=== PATIENT | female | born 1950 | race Caucasian/White ===

== ENCOUNTER → 2021-11-19 07:40 | Outpatient (REF) | payer MEDICARE, MEDICAID, SELFPAY ==
--- NOTE | ~2021-11-19 | NM_ITS ---
EXAMINATION: NUCLEAR MEDICINE HEPATOBILIARY SCAN CLINICAL INFORMATION: Abdominal pain and discomfort, nausea and vomiting. COMPARISON: None TECHNIQUE: Hepatobiliary imaging was performed using 5 mCi of technetium 99m labeled mebrofenin dynamic imaging every minute for 60 minutes in the AP projection was performed. One 8 ounce bottle of Ensure was given 1 hour. Additional dynamic imaging every minute for one hour was performed. FINDINGS: There is symmetric radiotracer uptake seen in the liver. Activity is seen in the common bile duct by 10 minutes. Activity is seen in the small bowel by 15 minutes. Activity is seen in the gallbladder by 20 minutes. Gallbladder ejection fraction is normal. Ejection fraction at 30 minutes is 79%, at 40 minutes 82% and 60 minutes 98%. NM/NM hepatobiliary wo pharm IMPRESSION: Normal hepatobiliary scan. Normal gallbladder ejection fraction.
== END ==
LOC: HO.NUCMED 07:40
PROVIDERS: Visit Provider Hospitalist
DX: R52 Pain, unspecified (principal)
CPT/HCPCS: 78226; A9537

== ENCOUNTER 2021-12-20 09:56 | Outpatient (REF) | payer MEDICAID, SELFPAY ==
--- NOTE | ~2021-12-20 | XR_ITS ---
EXAMINATION: XR CHEST CLINICAL INFORMATION: Abnormal weight loss COMPARISON: Previous chest x-ray May 2017 TECHNIQUE: 2 views of the chest were obtained. FINDINGS: The cardiac and mediastinal contours are stable. The thoracic aorta is calcified. The lung volumes are low. The lungs are clear. There is no pleural effusion or pneumothorax. There are degenerative changes of the thoracic spine and scoliosis. XR/XR chest 2V IMPRESSION: Atherosclerotic disease. No evidence for acute disease in the chest.
[2021-12-20 10:16] LABS: MANUAL DIFF FLAG NO
[2021-12-20 10:51] LABS: Basophils Absolute Auto 0.1 X10*3/uL (0.0-0.2); Basophils Percent Auto 0.4 % (0-2); Eosinophils Absolute Auto 0.2 X10*3/uL (0.0-0.4); Eosinophils Percent Auto 1.6 % (0-4); Hematocrit 50.5 % (37.0-47.0); Hemoglobin 16.8 g/dl (12.0-16.0); Imm Gran Abs Auto 0.05 X10*3/uL (0.00-0.03); Imm Gran Pct Auto 0.4 % (0.0-0.4); Lymphocytes Absolute Auto 3.3 X10*3/uL (1.2-4.9); Lymphocytes Percent Auto 25.8 % (20-40); Mean Corpuscular HGB Conc 33.3 g/dl (31.0-35.0); Mean Corpuscular Hemoglobin 28.9 pg (27.0-33.0); Mean Corpuscular Volume 86.9 fL (80.0-98.0); Mean Platelet Volume 10.2 fL (9.4-12.3); Monocytes Absolute Auto 1.2 X10*3/uL (0.1-1.2); Neutrophils Absolute Auto 8.1 x10*3/uL (2.0-8.3); Neutrophils Percent Auto 62.8 % (45-73); Platelet Count 420 X10*3/uL (160-400); Red Blood Count 5.81 X10*6/uL (4.20-5.50); White Blood Count 12.8 X10*3/uL (4.8-10.8)
[2021-12-20 11:19] LABS: Alanine Aminotransferase 24 U/L (0-31); Albumin Level 3.2 g/dL (3.5-5.0); Alkaline Phosphatase 160 U/L (39-117); Anion Gap 17 (12-20); Aspartate Amino Transferase 25 U/L (5-31); Bilirubin Total 0.4 mg/dL (0.0-1.0); Blood Urea Nitrogen 14 mg/dL (9-16); Calcium 9.4 mg/dL (8.4-10.2); Carbon Dioxide 28 mmol/L (22-29); Chloride 103 mmol/L (96-108); Estimated Glomerular Filt Rate > 60; Glucose Random 104 mg/dL (60-115); Potassium 3.9 mmol/L (3.3-5.1); Sodium 144 mmol/L (135-145); Total Protein 5.7 g/dL (6.5-8.0)
[2021-12-20 11:25] LABS: Thyroid Stimulating Hormone 1.97 uIU/mL (0.32-4.0)
== END 2021-12-20 09:57 | disposition home or self-care (01) ==
LOC: HO.LAB 09:56
PROVIDERS: PCP Hospitalist; Visit Provider Physician Assistant
DX: R63.4 Abnormal weight loss (principal); R11.2 Nausea with vomiting, unspecified; K58.9 Irritable bowel syndrome, unspecified; K21.9 Gastro-esophageal reflux disease without esophagitis; F17.200 Nicotine dependence, unspecified, uncomplicated
CPT/HCPCS: 36415; 71046; 80053; 84443; 85025; 99202

== ENCOUNTER 2022-01-11 08:57 | Outpatient (REF) | payer MEDICAID, SELFPAY ==
--- NOTE | ~2022-01-11 | FL_ITS ---
EXAMINATION: FL BARIUM SWALLOW CLINICAL INFORMATION: Nausea and vomiting. Heartburn. COMPARISON: None TECHNIQUE: Barium swallow examination is performed using fluoroscopic evaluation in addition to multiple fluoroscopic spot views. The patient is imaged both upright and prone and using both thick and thin sulfate along with effervescent granules. Barium tablet was also administered. Fluoroscopy time: 1.4 minutes DAP: 8.4 Gycm2 Images: 55 FINDINGS: The swallowing mechanism is normal. No aspiration or penetration is seen. There is abnormal esophageal motility. The esophagus is dilated. There are tertiary contractions. There is narrowing at the GE junction and stasis of the barium tablet at the GE junction. With the patient in the prone/MA position there is minimal passage of contrast into the stomach. No appreciable reflux. No esophageal hernia. FL/FL barium swallow IMPRESSION: Dilated esophagus with abnormal esophageal motility and tertiary contractions. There is stasis of the barium tablet at the GE junction, question related to achalasia versus a stricture. No reflux was observed however there is limited passage of contrast from the esophagus into the stomach.
== END 2022-01-11 08:58 | disposition home or self-care (01) ==
LOC: HO.XRAY 08:57
PROVIDERS: PCP Hospitalist; Visit Provider Physician Assistant
DX: K21.9 Gastro-esophageal reflux disease without esophagitis (principal); R11.2 Nausea with vomiting, unspecified; R63.4 Abnormal weight loss
CPT/HCPCS: 74220

== ENCOUNTER 2022-02-24 15:33 | Emergency (ER) | payer MEDICARE, MEDICAID, SELFPAY ==
--- NOTE | ~2022-02-24 | CT_ITS ---
EXAMINATION: CT BRAIN AND CT LUMBAR CERVICAL SPINE WITHOUT CONTRAST. CLINICAL INFORMATION: Fall. COMPARISON: TECHNIQUE: 5 mm thin axial and reformatted 2 mm thin sagittal and coronal images of brain were obtained. Subsequently axial 3 mm thin and reformatted 2 mm thin sagittal and coronal images of cervical spine were obtained. DLP [id number]. This CT examination was performed using dose optimization technique as appropriate, variously including the following: Automated exposure control Adjustment of MA and/or KV according to patient size(this includes techniques or standardized protocols for targeted exams where dose is matched to indication/reason for exam; extremities or head. Use of iterative reconstruction techniques. FINDINGS: Brain: There is no acute intra-axial, extra-axial bleed, masses or midline shift. There is no acute infarction in evolution. There is no edema the lateral ventricles are symmetrical in size and configuration with mild enlargement. The majano to white matter incision is maintained normal. Bone windows reveal no calvarial abnormality. There is no scalp soft tissue normality. Bilateral paranasal sinuses and mastoid air cells are well-aerated. Cervical spine: There is mild straightening of cervical lordosis. The vertebral heights and alignment is normal. Mild loss of C5-C6 and C6-C7 disc heights with mild ventral and posterior spondylosis noted. Rest the disc heights are normal. The craniovertebral junction and the C1-C2 alignment is normal. There is moderate narrowing of right C3-C4 C4-C5, C5-C6 neural foramina from uncovertebral hypertrophic changes. No aggressive lytic or sclerotic process. There is no acute fracture or dislocation. There is mild spondylosis C1-C2 disc level. The prevertebral soft tissues are normal. There is posterior spinal extra-axial calcified lesion at the C7-T1 disc level likely calcified meningioma. The prevertebral and the paravertebral soft tissues are normal. The lung apices are clear. CT/CT cervical spine wo IV con IMPRESSION: No acute intra-abdominal cranial process seen. No acute fracture, dislocation subluxation cervical spine. There are degenerative disc changes as described above with moderate narrowing of right neural foramina. There is extra-axial spinal canal lesion in the C7-T1 disc level most likely calcified meningioma.
--- NOTE | ~2022-02-24 | XR_ITS ---
EXAMINATION: XR elbow LT 2V, XR shoulder LT min 2V, XR wrist LT 2V CLINICAL INFORMATION: Reason for Exam fall, pain COMPARISON: None. TECHNIQUE: 3 views left shoulder; 3 views left elbow; 4 views left wrist including scaphoid view FINDINGS: Left shoulder: No acute fracture or dislocation. Glenohumeral joint space is maintained. Acromiohumeral interval is preserved. No periarticular soft tissue calcification. AC joint is congruent and intact. Minimal osteophyte formation. Visualized left lung is grossly clear. Aortic vascular calcifications noted. Left elbow: No acute fracture, dislocation, or elbow joint effusion. Joint spaces are maintained. No significant osteophyte formation. No osseous lesion. Left wrist: No acute fracture or dislocation. Pronator fat pad is intact. Scapholunate interval is maintained. Joint spaces at the wrist are preserved. Mild to moderate joint space narrowing with subchondral sclerosis and osteophytes at the first CMC joint consistent with osteoarthritis. XR/XR elbow LT 2V IMPRESSION: 1. No acute fracture or dislocation identified at the left shoulder, left elbow, or left wrist. 2. No elbow joint effusion. 3. 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
--- NOTE | ~2022-02-24 | XR_ITS ---
EXAMINATION: XR elbow LT 2V, XR shoulder LT min 2V, XR wrist LT 2V CLINICAL INFORMATION: Reason for Exam fall, pain COMPARISON: None. TECHNIQUE: 3 views left shoulder; 3 views left elbow; 4 views left wrist including scaphoid view FINDINGS: Left shoulder: No acute fracture or dislocation. Glenohumeral joint space is maintained. Acromiohumeral interval is preserved. No periarticular soft tissue calcification. AC joint is congruent and intact. Minimal osteophyte formation. Visualized left lung is grossly clear. Aortic vascular calcifications noted. Left elbow: No acute fracture, dislocation, or elbow joint effusion. Joint spaces are maintained. No significant osteophyte formation. No osseous lesion. Left wrist: No acute fracture or dislocation. Pronator fat pad is intact. Scapholunate interval is maintained. Joint spaces at the wrist are preserved. Mild to moderate joint space narrowing with subchondral sclerosis and osteophytes at the first CMC joint consistent with osteoarthritis. XR/XR wrist LT 2V IMPRESSION: 1. No acute fracture or dislocation identified at the left shoulder, left elbow, or left wrist. 2. No elbow joint effusion. 3. 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
--- NOTE | ~2022-02-24 | XR_ITS ---
EXAMINATION: XR elbow LT 2V, XR shoulder LT min 2V, XR wrist LT 2V CLINICAL INFORMATION: Reason for Exam fall, pain COMPARISON: None. TECHNIQUE: 3 views left shoulder; 3 views left elbow; 4 views left wrist including scaphoid view FINDINGS: Left shoulder: No acute fracture or dislocation. Glenohumeral joint space is maintained. Acromiohumeral interval is preserved. No periarticular soft tissue calcification. AC joint is congruent and intact. Minimal osteophyte formation. Visualized left lung is grossly clear. Aortic vascular calcifications noted. Left elbow: No acute fracture, dislocation, or elbow joint effusion. Joint spaces are maintained. No significant osteophyte formation. No osseous lesion. Left wrist: No acute fracture or dislocation. Pronator fat pad is intact. Scapholunate interval is maintained. Joint spaces at the wrist are preserved. Mild to moderate joint space narrowing with subchondral sclerosis and osteophytes at the first CMC joint consistent with osteoarthritis. XR/XR shoulder LT min 2V IMPRESSION: 1. No acute fracture or dislocation identified at the left shoulder, left elbow, or left wrist. 2. No elbow joint effusion. 3. 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
[2022-02-24 15:41] VITALS: BP 110/70; BP 151/69; PULSE 70; PULSE 77; RESP 18; TEMP 36.7; O2SAT 100; O2SAT 97; BMI 23.6
--- NOTE | 2022-02-24 17:11 | ED.FALL ---
HPI - Fall General Chief Complaint: Fall Stated Complaint: fall Time Seen by Provider: 02/24/22 15:53 Source: patient and EMS Mode of arrival: EMS Limitations: no limitations History of Present Illness HPI Narrative: Patient comes to the emergency room complaining of a fall. Patient states that she tripped over the wheels of a wheelchair. And on the left side of her body. Patient needed assistance to walk. Patient states she has no hip pain or leg pain. Patient hit her head on the left side, has a laceration to the left eyebrow, no loss of consciousness. Not on blood thinners. Patient denies having any headache or neck pain. Patient states that her shoulder elbow and wrist on the left side hurt minimally. Patient requesting Vicodin, since she is due for her home does Related Data Home Medications Medication Instructions Recorded Confirmed acetaminophen 650 mg 650 mg PO Q8H 12/20/21 12/20/21 tablet,extended release atorvastatin 40 mg tablet 40 mg PO DAILY 12/20/21 12/20/21 bisacodyl 10 mg rectal suppository 10 mg PA DAILY PRN 12/20/21 12/20/21 cyclobenzaprine 5 mg tablet 5 mg PO TID PRN 12/20/21 12/20/21 famotidine 40 mg tablet 40 mg PO DAILY 12/20/21 12/20/21 gabapentin 600 mg tablet 600 mg PO TID 12/20/21 12/20/21 hydrocodone 10 mg-acetaminophen tab PO 12/20/21 12/20/21 325 mg tablet loperamide 2 mg capsule 2 mg PO Q6H PRN 12/20/21 12/20/21 loratadine 10 mg tablet 10 mg PO DAILY 12/20/21 12/20/21 magnesium oxide 400 mg PO DAILY 12/20/21 12/20/21 morphine 15 mg tablet,extended 15 mg PO TID 12/20/21 12/20/21 release nortriptyline 25 mg capsule mg PO 12/20/21 12/20/21 Allergies Allergy/AdvReac Type Severity Reaction Status Date / Time tramadol [Ultram] Allergy Intermediate Unknown Verified 02/24/22 15:49 Review of Systems Review of Systems: Constitutional : No Weight loss, No Fever, No Chills, No Night Sweats, No Fatigue, No Malaise ENT/Mouth : No Hearing loss, No Ear Pain, No Nasal Congestion, No Sinus Pain, No Hoarseness, No sore throat, No Rhinorrhea, No Swallowing Difficulty Eyes: No Eye Pain, No Swelling, No Redness, No Foreign Body, No Discharge, No Vision Changes Cardiovascular : No Chest Pain, No SOB, No Dyspnea on Exertion, No Orthopnea, No Edema, No Palpitations Respiratory : No Cough, No Sputum, No Wheezing, No Smoke Exposure, No Dyspnea Gastrointestinal : No Nausea, No Vomiting, No Diarrhea, No Constipation, No abdominal Pain, No Hematochezia, No Melena Genitourinary : no irregular bleeding, No Dysuria, No Urinary Frequency, No Hematuria, No Urinary Incontinence, No Urgency, No Flank Pain, No Urinary Flow Changes, No Hesitancy Musculoskeletal : Pain to the left shoulder/elbow/wrist, No Myalgias, No Joint Swelling Skin : Laceration to left eyebrow Neuro : No Weakness, No Numbness, No Paresthesias, No Loss of Consciousness, No Dizziness, No Headache Psych : No Anxiety/Panic, No Depression, No SI/HI/AH/VH, No Social Issues, Heme/Lymph: No Bruising, No Bleeding,No Lymphadenopathy Endocrine : No Polyuria, No Polydipsia, No Temperature Intolerance PMFSH Past Medical History Medical History Acid reflux Fibromyalgia Melanoma Myofascial pain Surgical History History of knee replacement Social History Social History (Updated 12/20/21 @ 09:27 by Melanie Strong PA-C) Household Members Other:: [facility]- x 8 years Alcohol intake: former Patient Tobacco Use Status: Current everyday Tobacco user Years Smoked: 50 years Smoked in Last 30 Days: Yes Use of substances other than those prescribed or required for medical reasons: No Advance Directives: No Advance Directives Information Provided: Yes Current occupational status: disabled Physical Exam Vital Signs: Vital Signs: Last Vital Signs Temp 98.1 F 02/24/22 15:41 Pulse 77 02/24/22 15:41 Resp 18 02/24/22 15:41 BP 151/69 H 02/24/22 15:41 Pulse Ox 97 02/24/22 15:41 O2 Del Method 02/24/22 15:41 BMI result Body Mass Index 23.6 Const: Other: Appearance: Alert. Oriented X3. No acute distress. Eyes: Pupils equal, round and reactive to light. ENT: Pharynx normal. Neck: Normal inspection. Neck supple. No lymph nodes noted. No crepitus CVS: Normal heart rate and rhythm. Pulses normal. Normal S1 and S2 Respiratory: No respiratory distress. Breath sounds normal. No Wheezing. No rales Abdomen: Soft and nontender. No rigidity. No distention. Skin: Skin warm and dry. There is a 1.5 cm laceration to the left eyebrow laterally Extremities: No lower extremity edema. No Lacerations. No Rash Neuro: Oriented X 3. No motor deficit. No sensory deficit. Moving all extremities. No slurred speech. CN 2 through 12 grossly intact Psych: calm, cooperative, normal affect Course Course Course Narrative: Patient's head CT and x-rays pending. Patient will need stitches. Patient agreeable. Head and cervical spine CT scan, nothing acute. Also, no fractures or dislocations visualized on the left elbow, shoulder, wrist Patient received 4 stitches in the left eyebrow Medications Administered Discontinued Medications Generic Name Dose Route Start Last Admin Trade Name Freq PRN Reason Stop Dose Admin Hydrocodone Bitart/Acetaminophen 1 tab 02/24/22 17:06 02/24/22 18:21 Hydrocodone Bit/Acetam 5/325 Tablet PO 02/24/22 17:07 1 tab ONCE ONE Administration Lidocaine HCl 5 ml 02/24/22 17:11 02/24/22 18:22 Lidocaine Hcl 2 % Mpf 5 Ml Vial INFILTRATI 02/24/22 17:12 5 ml ONCE ONE Administration Procedures Laceration Laceration 1: Site: face Side (If applicable): left Size (cm): 1.5 Description: linear Depth: simple, single layer Local Anesthetic: lidocaine 2% Amount of anesthesia used (mL): 3 Skin layer closed with: nylon Size (cm): 5-0 Number of sutures: 4 Technique: simple, interrupted Medical Decision Making Radiology Impression Discussion of test interpretation with radiology: I have reviewed the radiologist's reading. Radiologist Impression: FINDINGS: Left shoulder: No acute fracture or dislocation. Glenohumeral joint space is maintained. Acromiohumeral interval is preserved. No periarticular soft tissue calcification. AC joint is congruent and intact. Minimal osteophyte formation. Visualized left lung is grossly clear. Aortic vascular calcifications noted. Left elbow: No acute fracture, dislocation, or elbow joint effusion. Joint spaces are maintained. No significant osteophyte formation. No osseous lesion. Left wrist: No acute fracture or dislocation. Pronator fat pad is intact. Scapholunate interval is maintained. Joint spaces at the wrist are preserved. Mild to moderate joint space narrowing with subchondral sclerosis and osteophytes at the first CMC joint consistent with osteoarthritis. XR/XR shoulder LT min 2V IMPRESSION: 1.? No acute fracture or dislocation identified at the left shoulder, left elbow, or left wrist. 2.? No elbow joint effusion. 3.? 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 FINDINGS: Brain: There is no acute intra-axial, extra-axial bleed, masses or midline shift. There is no acute infarction in evolution. There is no edema the lateral ventricles are symmetrical in size and configuration with mild enlargement. The majano to white matter incision is maintained normal. Bone windows reveal no calvarial abnormality. There is no scalp soft tissue normality. Bilateral paranasal sinuses and mastoid air cells are well-aerated. Cervical spine: There is mild straightening of cervical lordosis. The vertebral heights and alignment is normal. Mild loss of C5-C6 and C6-C7 disc heights with mild ventral and posterior spondylosis noted. Rest the disc heights are normal. The craniovertebral junction and the C1-C2 alignment is normal. There is moderate narrowing of right C3-C4 C4-C5, C5-C6 neural foramina from uncovertebral hypertrophic changes. No aggressive lytic or sclerotic process. There is no acute fracture or dislocation. There is mild spondylosis C1-C2 disc level. The prevertebral soft tissues are normal. There is posterior spinal extra-axial calcified lesion at the C7-T1 disc level likely calcified meningioma. The prevertebral and the paravertebral soft tissues are normal. The lung apices are clear. CT/CT cervical spine wo IV con IMPRESSION: No acute intra-abdominal cranial process seen. ? No acute fracture, dislocation subluxation cervical spine. There are degenerative disc changes as described above with moderate narrowing of right neural foramina. ? There is extra-axial spinal canal lesion in the C7-T1 disc level most likely calcified meningioma.? Discharge Plan Discharge Clinical Impression: Eyebrow laceration, Contusion of arm, left Patient Disposition: Home, Self-Care Instructions: Laceration (ED) Additional Instructions: Please follow-up with your primary care physician tomorrow. If you have any worsening or new symptoms, please return to the emergency room or call 911 Prescriptions: No Action nortriptyline 25 mg capsule PO hydrocodone-acetaminophen 10-325 mg tablet PO morphine 15 mg tablet extended release 15 mg PO TID gabapentin 600 mg tablet 600 mg PO TID atorvastatin 40 mg tablet 40 mg PO DAILY cyclobenzaprine 5 mg tablet 5 mg PO TID PRN famotidine 40 mg tablet 40 mg PO DAILY loperamide 2 mg capsule 2 mg PO Q6H PRN loratadine 10 mg tablet 10 mg PO DAILY magnesium oxide 400 mg magnesium capsule 400 mg PO DAILY bisacodyl 10 mg suppository 10 mg PA DAILY PRN acetaminophen 650 mg tablet extended release 650 mg PO Q8H
[2022-02-24] MEDS: HYDROcodone Bit/Acetam 5/325 TABLET 1 TAB PO (18:21)
[2022-02-24] MEDS: Lidocaine HCl 2 % MPF 5 ML VIAL INFILTRATI (18:22)
--- NOTE | 2022-02-24 19:48 | MHC.EDTECH ---
Lissa called at 192 for a bls transfer back to [facility] ,[place] within the hour.Rn aware
== END 2022-02-24 23:05 | disposition home or self-care (01) ==
PROVIDERS: Emergency Provider Emergency Medicine; PCP Hospitalist
DX: S01.112A Laceration without foreign body of left eyelid and periocular area, initial encounter (principal); S40.022A Contusion of left upper arm, initial encounter; W01.198A Fall on same level from slipping, tripping and stumbling with subsequent striking against other object, initial encounter; Y93.9 Activity, unspecified; Y92.129 Unspecified place in nursing home as the place of occurrence of the external cause; Y99.9 Unspecified external cause status; F17.200 Nicotine dependence, unspecified, uncomplicated
CPT/HCPCS: 12011; 70450; 72125; 73030; 73070; 73100; 99284

== ENCOUNTER 2022-06-21 08:55 | Day surgery (SDC) | payer MEDICARE, MEDICAID, SELFPAY ==
[2022-06-20 09:55] VITALS: BMI 25.9
--- NOTE | 2022-06-20 12:08 | HO.ANESPROP2 ---
Documented by User: Kimberly Hines NP 06/20/22 13:18 HPI - Anesthesia Eval Consult details Narrative: 72yo F for Upper Endoscopy with possible Balloon Dilitation, possible botox [address] [facility] resident [facility] Active Problems Active Problems: All Active Problems (Updated 06/17/22 @ 11:02 by Brandee Isaacs RN) Osteoarthritis (Acute) Weight loss (Acute) Smoker (Acute) Nausea & vomiting (Acute) Myofascial pain (Acute) Acid reflux (Acute) Fibromyalgia (Acute) Past Medical History Medical History Acid reflux Anxiety disorder CHF (congestive heart failure) Depression Epilepsy, unspecified, not intractable, without status epilepticus Fibromyalgia GERD (gastroesophageal reflux disease) HTN (hypertension) Hyperlipidemia Low back pain Melanoma Myalgia Myofascial pain Osteoarthritis Personal history of malignant melanoma of skin Sciatica Thiamine deficiency Type II diabetes mellitus Surgical History Surgical History History of knee replacement Social History Social History (Updated 12/20/21 @ 09:27 by Melanie Strong PA-C) Household Members Other:: Resides @ [facility] Are you a primary patient centered care specialist to a significant other at home: No Alcohol intake: former Patient Tobacco Use Status: Current everyday Tobacco user Tobacco use type: Cigarette Cigarettes Per Day: 4 Years Smoked: 50 years Current occupational status: disabled Meds Allergies Allergy/AdvReac Type Severity Reaction Status Date / Time tramadol [Ultram] Allergy Intermediate Unknown Verified 06/21/22 10:15 Home Medications Medication Instructions Recorded Confirmed Last Taken Type acetaminophen 650 mg 650 mg PO Q8H 12/20/21 06/20/22 Unknown History tablet,extended release atorvastatin 40 mg tablet 40 mg PO DAILY 12/20/21 06/20/22 Unknown History bisacodyl 10 mg rectal suppository 10 mg HI DAILY PRN Constipation 12/20/21 06/20/22 Unknown History cyclobenzaprine 5 mg tablet 5 mg PO TID PRN Muscle Pain 12/20/21 06/20/22 Unknown History famotidine 40 mg tablet 40 mg PO DAILY 12/20/21 06/20/22 Unknown History gabapentin 600 mg tablet 600 mg PO TID 12/20/21 06/20/22 06/21/22 04:00 History hydrocodone 10 mg-acetaminophen tab PO 12/20/21 12/20/21 Unknown History 325 mg tablet loperamide 2 mg capsule 2 mg PO Q6H PRN Diarrhea 12/20/21 06/20/22 Unknown History loratadine 10 mg tablet 10 mg PO DAILY 12/20/21 06/20/22 Unknown History magnesium oxide 400 mg PO DAILY 12/20/21 06/20/22 Unknown History nortriptyline 25 mg capsule 25 mg PO DAILY 12/20/21 06/20/22 06/21/22 04:00 History cholecalciferol (vitamin D3) 50 50 mcg PO DAILY 06/20/22 06/20/22 Unknown History mcg (2,000 unit) capsule (Vitamin D3) furosemide 40 mg tablet 40 mg PO DAILY 06/20/22 06/20/22 Unknown History gabapentin 300 mg capsule PO 06/20/22 Unknown History morphine 15 mg tablet,extended 15 mg PO TID 06/20/22 06/20/22 06/21/22 04:00 History release nortriptyline 25 mg capsule 50 mg PO BEDTIME 06/20/22 06/20/22 Unknown History potassium chloride 20 mEq 20 meq PO DAILY 06/20/22 06/20/22 Unknown History tablet,extended release(part/cryst) thiamine HCl (vitamin B1) 100 mg 100 mg PO DAILY 06/20/22 06/20/22 Unknown History tablet (Vitamin B-1) Exam Exam Date and Time: June 20, 2022 1208 Height,Weight and Vital Signs: Height 5 ft 4 in Weight 68.701 kg Pertinent Lab Results Pertinent Lab Results: Laboratory Tests 12/20/21 12/20/21 10:15 10:15 WBC 12.8 H Hgb 16.8 H Hct 50.5 H Plt Count 420 H Sodium 144 Potassium 3.9 Chloride 103 Carbon Dioxide 28 BUN 14 Creatinine 0.76 Assessment and Plan Assessment Anesthesia Assessment: Chart Reviewed Documented by User: Julián Lamb MD 06/21/22 17:48 HPI - Anesthesia Eval Consult details Narrative: 72yo F for Upper Endoscopy with possible Balloon Dilitation, possible botox 100 units [facility] resident No chest pain , patient denies any cardiac problems [facility] Past Medical History Medical History Acid reflux Anxiety disorder CHF (congestive heart failure) Depression Epilepsy, unspecified, not intractable, without status epilepticus Fibromyalgia GERD (gastroesophageal reflux disease) HTN (hypertension) Hyperlipidemia Low back pain Melanoma Myalgia Myofascial pain Osteoarthritis Personal history of malignant melanoma of skin Sciatica Thiamine deficiency Type II diabetes mellitus Family History Family history of problems with anesthesia: No Surgical History Surgical History History of knee replacement History of Problems with Anesthesia: No Social History Social History (Updated 12/20/21 @ 09:27 by Melanie Strong PA-C) Household Members Other:: Resides @ [facility] Are you a primary patient centered care specialist to a significant other at home: No Alcohol intake: former Patient Tobacco Use Status: Current everyday Tobacco user Tobacco use type: Cigarette Cigarettes Per Day: 4 Years Smoked: 50 years Current occupational status: disabled Meds Allergies Allergy/AdvReac Type Severity Reaction Status Date / Time tramadol [Ultram] Allergy Intermediate Unknown Verified 06/21/22 10:15 Home Medications Medication Instructions Recorded Confirmed Last Taken Type acetaminophen 650 mg 650 mg PO Q8H 12/20/21 06/20/22 Unknown History tablet,extended release atorvastatin 40 mg tablet 40 mg PO DAILY 12/20/21 06/20/22 Unknown History bisacodyl 10 mg rectal suppository 10 mg HI DAILY PRN Constipation 12/20/21 06/20/22 Unknown History cyclobenzaprine 5 mg tablet 5 mg PO TID PRN Muscle Pain 12/20/21 06/20/22 Unknown History famotidine 40 mg tablet 40 mg PO DAILY 12/20/21 06/20/22 Unknown History gabapentin 600 mg tablet 600 mg PO TID 12/20/21 06/20/22 06/21/22 04:00 History hydrocodone 10 mg-acetaminophen tab PO 12/20/21 12/20/21 Unknown History 325 mg tablet loperamide 2 mg capsule 2 mg PO Q6H PRN Diarrhea 12/20/21 06/20/22 Unknown History loratadine 10 mg tablet 10 mg PO DAILY 12/20/21 06/20/22 Unknown History magnesium oxide 400 mg PO DAILY 12/20/21 06/20/22 Unknown History nortriptyline 25 mg capsule 25 mg PO DAILY 12/20/21 06/20/22 06/21/22 04:00 History cholecalciferol (vitamin D3) 50 50 mcg PO DAILY 06/20/22 06/20/22 Unknown History mcg (2,000 unit) capsule (Vitamin D3) furosemide 40 mg tablet 40 mg PO DAILY 06/20/22 06/20/22 Unknown History gabapentin 300 mg capsule PO 06/20/22 Unknown History morphine 15 mg tablet,extended 15 mg PO TID 06/20/22 06/20/22 06/21/22 04:00 History release nortriptyline 25 mg capsule 50 mg PO BEDTIME 06/20/22 06/20/22 Unknown History potassium chloride 20 mEq 20 meq PO DAILY 06/20/22 06/20/22 Unknown History tablet,extended release(part/cryst) thiamine HCl (vitamin B1) 100 mg 100 mg PO DAILY 06/20/22 06/20/22 Unknown History tablet (Vitamin B-1) Exam Airway Mallampati Class: IV TM Dist: >3cm Neck ROM: Full Loose/Missing/Broken Teeth: Yes Assessment and Plan Assessment Anesthesia Assessment: Anesthesia Plan Discussed Final Anesthetic Review Family History of Problems with Anesthesia: No History of Problems with Anesthesia: No NPO: Yes ASA Class: III Final Preanesthetic Review: Meds/Allgs Chart Reviewed, Consent Obtained/Reviewed and Anes Risks/Benef Reviewed Patient Risk: Intermediate Procedure Risk: Intermediate Anesthetic Plan Anesthetic Plan: MAC: and Agree w/ Assess. and Plan Disposition: Standard PACU
[2022-06-21 10:16] VITALS: BP 156/70; PULSE 66; RESP 16; TEMP 36.3; O2SAT 96
[2022-06-21 10:47] LABS: Glucose, Whole Blood 82 mg/dL (60-115)
[2022-06-21] MEDS: Lactated Ringers 1,000 ML 50 ML IVCONT (10:48)
[2022-06-21] MEDS: Albuterol/Iprat 2.5/0.5MG 3 ML AMPUL.NEB INHALE (10:53)
[2022-06-21 10:55] VITALS: PULSE 65; RESP 15; O2SAT 100
--- NOTE | 2022-06-21 12:30 | MHC.SHP ---
Pre-Procedural Eval Section A Date of Service: 06/21/22 Section B Chief Complaint: dysphagia Details of Present Illness: dysphagia Relevant Family History (Specify if Yes): No Relevant Social History: Tobacco Use Present Medications: see Short Stay Collaborative assessment Medical History: Significant History ( Acid reflux Anxiety disorder CHF (congestive heart failure) Depression Epilepsy, unspecified, not intractable, without status epilepticus Fibromyalgia GERD (gastroesophageal reflux disease) HTN (hypertension) Hyperlipidemia Low back pain Melanoma Myalgia Myofascial pain Osteoarthritis Personal hist) History of Previous Operations: Relevant previous surgery/procedure and date(s) (knee replacement ) Allergies: Allergies Allergy/AdvReac Type Severity Reaction Status Date / Time tramadol [Ultram] Allergy Intermediate Unknown Verified 06/21/22 10:15 Review of Systems Sugical H&P ROS: Negative: Constitution, Cardiovascular, Respiratory, Neurological, Psychiatric, Hem-Onc, Allergic/Immunologic, Gastrointestinal, Genitourinary, Musculoskeletal, Integumentary, Endocrine and Eyes/Ears/Nose/Throat Exam Surgical H&P Exam: Normal: HEENT, Normal: Heart, Normal: Lungs, Normal: Extremities, Normal: Abdomen, Normal: Skin and Normal: Neurological Plan Diagnosis/Plan: Unchanged I have reviewed the history and physical and performed a pertinent physical examination on my patient. No changes have occurred unless specified. Time Spent With Patient Time: Total time managing care of this patient today ____ minutes.
--- NOTE | 2022-06-21 13:16 | W.PM.OPN ---
Operative Note Operative Note Date of Service: 06/21/22 Narrative: Procedure Description: EGD Indication: dysphagia and regurgitation Anesthesia: MAC FLEXIBLE TRANSORAL UPPER GASTROINTESTINAL ENDOSCOPY UPPER ENDOSCOPY Consent: Indications for the procedure and potential complications of bleeding, perforation, reaction to medications and missed diagnosis were discussed with the patient and informed consent was obtained. Instrument: Olympus GIF H 190 J mid size upper endoscope Monitoring: Vital signs and clinical assessment, continuous EKG monitoring, Pulse oximetry, Carbon Dioxide monitoring and blood pressure monitoring were done throughout the procedure. Procedure: The patient was placed in the left lateral decubitis position and pre-procedure medications were administered and a bite block was placed. The endoscope was inserted into the mouth and advanced under direct vision to the third part of duodenum. A careful inspection was made as the upper endoscope was withdrawn including a retroflexed examination of the proximal stomach; Findings and interventions are described below. Findings: Larynx:normal Esophagus: GE junction at 40 cm, diaphragm hiatus at 40 cm, redness, and swelling, with salmon pink patches at GEJ, bx taken. Balloon dilation done at LES to 20 mm with small tear noted, and also at UES to 18 mm. abnormal peristalsis noted with tertiary contractions Stomach: Patchy gastric erythema with scarring. Biopsies were obtained. Grade 2 flap valve on retroflexed examination of the cardia. Duodenum: Normal bulb and descending duodenum, Intervention: Biopsies as noted above, balloon dilation Impression/Findings: tertiary contractions, dysmotility esophagitis possible barretts gastritis PLAN: her dysmotility maybe due to her morphine, can assess response to dilation, and can consider repeat EGD with botox injection if ongoing sx can also consider trial of movantik to see if helps reduce GI side effects of opiates
[2022-06-21 13:30] VITALS: BP 130/62; PULSE 71; RESP 15; TEMP 36.6; O2SAT 96
[2022-06-21 13:45] VITALS: BP 145/67; PULSE 66; RESP 16; TEMP 36.6; O2SAT 96
== END 2022-06-21 14:46 | disposition home or self-care (01) ==
PROVIDERS: PCP Hospitalist; Visit Provider Internal Medicine Gastroenterology
PROC: (CPT 43249; principal; 2022-06-21 11:30)
DX: K21.00 Gastro-esophageal reflux disease with esophagitis, without bleeding (principal); K22.70 Barrett's esophagus without dysplasia; K29.50 Unspecified chronic gastritis without bleeding; K22.4 Dyskinesia of esophagus; R63.4 Abnormal weight loss; Z68.27 Body mass index [BMI] 27.0-27.9, adult; K22.2 Esophageal obstruction; K44.9 Diaphragmatic hernia without obstruction or gangrene; I11.0 Hypertensive heart disease with heart failure; I50.9 Heart failure, unspecified; E78.5 Hyperlipidemia, unspecified; E11.9 Type 2 diabetes mellitus without complications; G40.909 Epilepsy, unspecified, not intractable, without status epilepticus; M79.7 Fibromyalgia; F41.1 Generalized anxiety disorder; Z79.899 Other long term (current) drug therapy; Z88.8 Allergy status to other drugs, medicaments and biological substances; F17.210 Nicotine dependence, cigarettes, uncomplicated
CPT/HCPCS: 43249; 43239; 82947; 88305; 88342; 94640; C1726; J0585; J3010

== ENCOUNTER → 2022-07-07 09:48 | Outpatient (BNVA) | payer MEDICARE, MEDICAID, SELFPAY | PROVIDERS: PCP Hospitalist; Referring Provider Hospitalist; Visit Provider Physician Assistant | DX: K22.70 Barrett's esophagus without dysplasia (principal) | CPT/HCPCS: 99212 ==

== ENCOUNTER 2024-08-01 21:14 | Inpatient (IN) | payer MEDICARE, MEDICAID, SELFPAY ==
--- NOTE | ~2024-08-01 | XR_ITS ---
CLINICAL HISTORY: sob 1 view chest x-ray. Comparison: None Findings: Lung volumes are small with crowding of bronchovascular markings. There is mild bibasilar atelectasis. Lungs appear otherwise clear. Cardiomediastinal silhouette is within normal limits for technique. IMPRESSION: Mild bibasilar atelectasis. Otherwise no acute cardiopulmonary abnormality. This document has been electronically signed by: Pradeep Perez MD on 08/01/2024 23:10:21
--- NOTE | ~2024-08-01 | XR_ITS ---
CLINICAL HISTORY: sob 1 view chest x-ray. Comparison: CT/SR - CT CHEST W IV CON - 08/02/24 00:07 EDT CR - XR CHEST 1V - 08/01/24 22:43 EDT Findings: Normal lung volumes. Interstitial and bronchial wall thickening persists throughout both lungs. No pneumothorax. Probable basilar pleural-parenchymal disease better demonstrated on recent CT. This is probably improved Heart size normal. No mediastinal shift. No acute fracture. Impression: 1. Persistent interstitial and bronchial wall thickening and probable pleural-parenchymal disease both lung bases either cardiogenic or pneumonic. This document has been electronically signed by: Handy De Souza MD on 08/04/2024 10:02:02
--- NOTE | ~2024-08-01 | CT_ITS ---
EXAMINATION: CT CHEST ANGIOGRAPHY WITH IV CONTRAST INDICATION: son, hypoxia COMPARISON: Comparison is made with the prior examination dated 08/02/2024. TECHNIQUE: Helical CT scan of the chest was performed following administration of intravenous contrast (65 mL Omnipaque 350). The contrast bolus was timed to optimally opacify the pulmonary arteries. Thin sections were obtained through the pulmonary arteries. Coronal and sagittal reformatted images were generated. 3D/MIP reconstructed images are also obtained and reviewed. This CT exam was performed with one or more of the following dose reduction techniques: automated exposure control, adjustment of the mA and/or kV according to patient size, use of iterative reconstruction technique. DLP: 160 mGy-cm CHEST: THYROID: The thyroid gland is unremarkable. PULMONARY ARTERIES: No intraluminal filling defects are identified within the pulmonary arteries to suggest pulmonary emboli. LUNGS: There is airspace opacity in both lower lobes, consistent with atelectasis or pneumonia. Again seen is a 1.3 cm right upper lobe nodule. MEDIASTINUM: Again seen is an enlarged AP window node measuring 1.9 cm in size. ANJANA: There are enlarged bilateral hilar lymph nodes measuring up to 1.2 cm on the right and 2.1 cm on the left. CARDIOVASCULATURE: The heart is enlarged. There is no pericardial effusion. The thoracic aorta is normal in caliber. DEGREE OF CORONARY CALCIFICATION: not evaluable, due to dense contrast in the coronary arteries. PLEURA: There are new moderate sized bilateral pleural effusions. No pneumothorax. MAIN AIRWAYS: The mainstem bronchi and proximal branches are patent. AXILLA: There is no axillary lymphadenopathy. UPPER ABDOMEN: The visualized portions of the liver, spleen, and adrenals are unremarkable. BONES AND SOFT TISSUES: Unremarkable. CT/CT angio chest PE protocol IMPRESSION: 1. No evidence of pulmonary emboli. 2. New moderate bilateral pleural effusions. 3. Bilateral lower lobe subsegmental atelectasis versus pneumonia. 4. 1.3 cm right upper lobe pulmonary nodule without change. 5. Mediastinal and bilateral hilar lymphadenopathy as seen previously. Electronically signed by: Nelson Coe MD 08/06/2024 12:56 PM EDT
--- NOTE | ~2024-08-01 | CT_ITS ---
CLINICAL HISTORY: fever, sepsis, AMS CT abdomen and pelvis with contrast Comparison: None Findings: The liver, gallbladder, pancreas, spleen, and adrenal glands are unremarkable. There are few small renal cysts. Kidneys are otherwise unremarkable. The appendix is normal. The remainder of the gastrointestinal tract is unremarkable. There is no free fluid or free air. There are no enlarged lymph nodes. Uterus and adnexa are unremarkable. The bladder is unremarkable. There is diffuse atherosclerotic calcification. There are multifocal severe stenoses of the bilateral common iliac, external iliac, and and common femoral arteries not optimally evaluated on the non arterial phase CT. There is moderate lumbar dextroscoliosis. There are degenerative changes in the lumbar spine. There is no acute fracture or suspicious lytic or sclerotic lesion. The bones are demineralized. IMPRESSION: 1. No acute abnormality in the abdomen or pelvis. 2. Chronic findings as above. This document has been electronically signed by: Pradeep Perez MD on 08/02/2024 02:22:14
--- NOTE | ~2024-08-01 | US_ITS ---
EXAMINATION: ULTRASOUND; Bilateral posterior chest. Patient presenting for thoracentesis secondary to bilateral pleural effusions. CLINICAL INFORMATION: Patient with COPD and heart failure exacerbations. Bilateral pleural effusions. COMPARISON: CT chest on 08/06/2024 TECHNIQUE: Bilateral posterior chest ultrasonographic examination. FINDINGS: Bilateral lung bases show scant amount of fluid bilaterally. US/US chest IMPRESSION: Small volume bilateral pleural effusions. PLAN: At this time, we feel as though there is not enough fluid amenable to diagnostic or therapeutic drainage. This information will be communicated to the hospitalist. At the hospitalists discretion, reevaluation can be performed. Bedside examination performed by Isaiah Landa NP and supervised by Sumanth Meyer M.D. Electronically signed by: Sumanth Meyer MD 08/09/2024 03:40 PM EDT
--- NOTE | ~2024-08-01 | CT_ITS ---
CLINICAL HISTORY: PNA??? not seen on CXR CT chest with contrast Comparison: CR - XR CHEST 1V - 08/01/24 22:43 EDT Findings: Heart size is within normal limits. There is coronary artery calcification. Thoracic aorta is normal in diameter. There are mildly enlarged mediastinal lymph nodes. There is a mildly enlarged left hilar lymph node versus a perihilar nodule measuring 2.8 x 2.6 cm. There is bilateral dependent atelectasis and consolidation in the posterior portions of the lower lobes. There is mucous/secretions within some of the subsegmental lower lobe bronchi. There is no acute fracture or suspicious lytic or sclerotic lesion. IMPRESSION: 1. Bilateral atelectasis and consolidation in the dependent portions of the lower lobes most consistent with pneumonia possibly aspiration related. There is small amount of mucus/secretions within some of the subsegmental lower lobe bronchi. 2. Indeterminate mildly enlarged mediastinal lymph nodes and mildly enlarged left hilar lymph node versus a perihilar pulmonary nodule. Short interval follow-up is recommended. This document has been electronically signed by: Pradeep Perez MD on 08/02/2024 02:15:25
[2024-08-01 21:24] VITALS: BP 103/55; BP 132/56; PULSE 122; PULSE 95; RESP 19; TEMP 39.3; O2SAT 94; O2SAT 96; BMI 25.8
--- NOTE | 2024-08-01 21:39 | ECG_ITS ---
Test Reason : SOB, HYPOTENSIVE Blood Pressure : */* mmHG Vent. Rate : 83 BPM Atrial Rate : 83 BPM P-R Int : 204 ms QRS Dur : 94 ms QT Int : 384 ms P-R-T Axes : 39 -37 54 degrees QTcB Int : 451 ms Normal sinus rhythm Left axis deviation Septal infarct , age undetermined Abnormal ECG When compared with ECG of 20-Jun-2017 14:51, No significant changes seen Referred By: Emma Griggs Electronically Signed By: WALE HAWKINS
[2024-08-01 21:58] LABS: Hematocrit 47.2 % (37.0-47.0); Hemoglobin 16.2 g/dl (12.0-16.0); Mean Corpuscular HGB Conc 34.3 g/dl (31.0-35.0); Mean Corpuscular Hemoglobin 29.7 pg (27.0-33.0); Mean Corpuscular Volume 86.4 fL (80.0-98.0); Mean Platelet Volume 9.1 fL (9.4-12.3); Platelet Count 347 X10*3/uL (160-400); Red Blood Count 5.46 X10*6/uL (4.20-5.50); Red Cell Distribution Width 14.3 % (11.0-16.0); White Blood Count 29.1 X10*3/uL (4.8-10.8)
[2024-08-01] MEDS: Acetaminophen Supp 650 MG SUPP.RECT PR (22:11)
[2024-08-01 22:12] LABS: Alanine Aminotransferase 20 U/L (0-31); Albumin Level 3.5 g/dL (3.5-5.0); Alkaline Phosphatase 144 U/L (39-117); Anion Gap 13 (12-20); Aspartate Amino Transferase 24 U/L (5-31); Bilirubin Total 0.6 mg/dL (0.0-1.0); Blood Urea Nitrogen 12 mg/dL (9-16); Calcium 9.2 mg/dL (8.4-10.2); Carbon Dioxide 30 mmol/L (22-29); Chloride 102 mmol/L (96-108); Creatinine Clr Calc Pharmacy 64.7; Estimated Glomerular Filt Rate > 60; Glucose Random 187 mg/dL (60-115); Lipase 5 U/L (8-78); Magnesium 1.9 mg/dL (1.6-2.6); Potassium 3.3 mmol/L (3.3-5.1); Sodium 142 mmol/L (135-145); Total Protein 6.4 g/dL (6.5-8.0)
[2024-08-01] MEDS: SODIUM CHLORIDE 2241 ML IV (22:13)
[2024-08-01 22:22] LABS: SLIDE REVIEW MANUAL DIFF
[2024-08-01 22:24] LABS: Lactic Acid 3.4 mmol/L (0.5-2.0)
[2024-08-01 22:25] VITALS: BP 92/37; PULSE 92
[2024-08-01 22:26] LABS: Neutrophils Percent Manual 80 % (45-73)
[2024-08-01 22:27] LABS: Band Neutrophils Percent 14 % (3-5); Lymphocytes Absolute Manual 1.2 X10*3/uL (1.2-4.9); Lymphocytes Percent Manual 4 % (20-40); Monocytes Absolute Manual 0.6 X10*3/uL (0.1-1.2); Monocytes Percent Manual 2 % (2-11); Neutrophils Absolute Manual 27.4 X10*3/uL (2.0-8.3)
[2024-08-01 22:28] LABS: Platelet Estimate NORMAL (NORMAL); Platelet Morphology Comment NORMAL; RBC Morphology NORMAL
[2024-08-01 22:48] LABS: Influenza A PCR NEGATIVE (Negative); Influenza B PCR NEGATIVE (Negative); Resp Syncy Virus RNA Qual PCR NEGATIVE (Negative); SARS COV2 PCR INHOUSE NEGATIVE (Negative)
[2024-08-01] MEDS: cefTRIAXone sodium 2 GM VIAL IVPUSH (22:55)
[2024-08-01 23:05] VITALS: BP 103/38; PULSE 78; RESP 16; O2SAT 99
[2024-08-01 23:16] VITALS: BP 103/38; PULSE 71; RESP 14; TEMP 36.8; O2SAT 100
[2024-08-01 23:33] LABS: D Dimer High Sensitivity 158 NG/ML
--- NOTE | 2024-08-01 23:42 | ED_ITS ---
HPI - General Adult General Chief complaint: Fever Stated complaint: tachy,hyper fever, lethargic Time Seen by Provider: 08/01/24 21:39 Source: RN notes reviewed Limitations: other ( somnolent) History of Present Illness ED Provider: Emma Griggs PA-C HPI narrative: 74-year-old female with a history of Mclean's esophagus, GERD, hyperlipidemia, osteoarthritis, fibromyalgia, presents with fever and lethargy. Patient is coming from a intermediate facility, lethargic and somnolent from her baseline. Complaining of shortness of breath, fever in the patient was hypoxic to 80% on room air. Related Data Home Medications ?Medication ?Instructions ?Recorded ?Confirmed acetaminophen 650 mg 650 mg PO Q8H 12/20/21 07/07/22 tablet,extended release atorvastatin 40 mg tablet 40 mg PO DAILY 12/20/21 07/07/22 bisacodyl 10 mg rectal suppository 10 mg UT DAILY PRN Constipation 12/20/21 07/07/22 cyclobenzaprine 5 mg tablet 5 mg PO TID PRN Muscle Pain 12/20/21 07/07/22 famotidine 40 mg tablet 40 mg PO DAILY 12/20/21 07/07/22 gabapentin 600 mg tablet 600 mg PO TID 12/20/21 07/07/22 hydrocodone 10 mg-acetaminophen tab PO 12/20/21 07/07/22 325 mg tablet loperamide 2 mg capsule 2 mg PO Q6H PRN Diarrhea 12/20/21 07/07/22 loratadine 10 mg tablet 10 mg PO DAILY 12/20/21 07/07/22 magnesium oxide 400 mg PO DAILY 12/20/21 07/07/22 nortriptyline 25 mg capsule 25 mg PO DAILY 12/20/21 07/07/22 cholecalciferol (vitamin D3) 50 50 mcg PO DAILY 06/20/22 07/07/22 mcg (2,000 unit) capsule (Vitamin D3) furosemide 40 mg tablet 40 mg PO DAILY 06/20/22 07/07/22 gabapentin 300 mg capsule PO 06/20/22 07/07/22 morphine 15 mg tablet,extended 15 mg PO TID 06/20/22 07/07/22 release nortriptyline 25 mg capsule 50 mg PO BEDTIME 06/20/22 07/07/22 potassium chloride 20 mEq 20 meq PO DAILY 06/20/22 07/07/22 tablet,extended release(part/cryst) thiamine HCl (vitamin B1) 100 mg 100 mg PO DAILY 06/20/22 07/07/22 tablet (Vitamin B-1) Allergies Allergy/AdvReac Type Severity Reaction Status Date / Time tramadol [Ultram] Allergy Intermediate Unknown Verified 08/01/24 21:37 Review of Systems 2 Review of Systems: Yes all other systems are reviewed and are negative and Unobtainable due to mental status [facility] Past Medical History Attestation statement: The following information was validated with the patient. Medical History Acid reflux Anxiety disorder CHF (congestive heart failure) Depression Epilepsy, unspecified, not intractable, without status epilepticus Fibromyalgia GERD (gastroesophageal reflux disease) HTN (hypertension) Hyperlipidemia Low back pain Melanoma Myalgia Myofascial pain Osteoarthritis Personal history of malignant melanoma of skin Sciatica Thiamine deficiency Type II diabetes mellitus Surgical History (Updated 07/07/22 @ 10:04 by Kenyatta Tay) History of esophagogastroduodenoscopy (EGD) History of knee replacement Social History Social History Household Members Other:: Resides @ [facility] Are you a primary care professional to a significant other at home: No Alcohol intake: former Patient Tobacco Use Status: Current everyday Tobacco user Tobacco use type: Cigarette Cigarettes Per Day: 4 Years Smoked: 50 years Advance Directives: No Advance Directives Information Provided: Yes Do you have a plan to hurt others: No Plan Current occupational status: disabled Physical Exam ED Vital Signs: Vital Signs - 24 hr 08/01/24 21:24 08/01/24 21:24 08/01/24 22:25 Temperature 102.8 F H Pulse Rate 95 92 Respiratory Rate 19 Blood Pressure 103/55 L 92/37 L Pulse Oximetry 96 Oxygen Delivery Method Non-Rebreather Mask Oxymask Oxygen Flow Rate 10 08/01/24 23:05 08/01/24 23:16 08/01/24 23:57 Temperature 98.2 F 97.9 F Pulse Rate 78 71 67 Respiratory Rate 16 14 13 Blood Pressure 103/38 L 103/38 L 91/36 L Pulse Oximetry 99 100 93 Oxygen Delivery Method Oxymask Nasal Cannula Oxygen Flow Rate 10 10 08/01/24 23:59 08/02/24 00:19 08/02/24 00:20 Temperature Pulse Rate 61 74 76 Respiratory Rate Blood Pressure 95/38 L 122/51 L 120/51 L Pulse Oximetry Oxygen Delivery Method Oxygen Flow Rate 08/02/24 00:50 Temperature 97.8 F Pulse Rate 73 Respiratory Rate 16 Blood Pressure 116/57 L Pulse Oximetry 97 Oxygen Delivery Method Nasal Cannula Oxygen Flow Rate 4 BMI result Body Mass Index 25.8 Const Other: Somnolent, woken with verbal and physical stimuli, ill-appearing Orientation/consciousness: patient oriented x3 Resp Other: not tachypneic, bibasilar crackles noted posterior tejada, no wheezing Cardio Other: normal peripheral perfusion Skin Other: symmetric erythema over anterior shins with overlying warmth Neuro Other: globally weak General: patient oriented x3, no focal motor deficits and CN's II-XI intact bilaterally Psych Other: cooperative, somnolent Course Reevaluation(s) Reevaluation #1: at 10:28 p.m. on August 01, a sepsis focused exam was performed, blood cultures and lactic already collected, adding antibiotics now Time: 22:28 Reevaluation #2: lactic 3.4, we will obtain another Time: 21:51 Reevaluation #3: lactic normalized to 2 Time: 23:57 Medications Administered Discontinued Medications Generic Name Dose Route Start Last Admin Trade Name Freq PRN Reason Stop Dose Admin Acetaminophen 650 mg 08/01/24 21:39 08/01/24 22:11 Acetaminophen Supp 650 Mg Supp.Rect UT 08/01/24 21:40 650 mg ONCE ONE Administration Ceftriaxone Sodium 2 gm 08/01/24 22:28 08/01/24 22:55 Ceftriaxone Sodium 2 Gm Vial IVPUSH 08/01/24 22:29 2 gm ONCE ONE Administration Sodium Chloride 2,241 mls @ 2,241 mls/hr 08/01/24 21:39 08/01/24 23:30 Ns 30 ml/kg infuse over 1 hr (2241 ml) 08/01/24 22:38 Infused IV Infusion .Q1H STA Albumin Human 100 mls @ 133.333 mls/hr 08/02/24 00:30 08/02/24 02:05 Kedbumin 25 % IV 08/02/24 02:14 Infused Q1H [facility] Infusion Iohexol 85 ml 08/02/24 00:21 08/02/24 00:24 Iohexol 350 Mg/Ml 100 Ml Infus..Btl IV 08/02/24 00:22 85 ml ONCE ONE Administration Medical Decision Making Medical Decision Making [facility] Narrative: 74-year-old female with a history of Mclean's esophagus, GERD, hyperlipidemia, osteoarthritis, fibromyalgia, presents with fever and lethargy. Patient is coming from a intermediate facility, lethargic and somnolent from her baseline. Complaining of shortness of breath, fever in the patient was hypoxic to 80% on room air. Problem: Age, History: Per patient which is somewhat limited I have considered the following differential diagnoses: Sepsis, viral syndrome, pneumonia, PE Plan: I am most concerned for sepsis, of likely respiratoy etiology given she is newly hypoxic, with a adventitious lung sounds on exam. In addition to screening labs, we will be adding blood cultures, lactic acid, viral panel and chest x-ray. We will be treating the patient with a weight based IV fluid, Tylenol and starting empiric ceftriaxone. The patient is now on an OxyMask , 4 L nasal cannula. I have independently reviewed the following tests: Labs: significant leukocytosis of 29.1 with left shift, not anemic, no electrolyte abnormality, , 1st lactic acid 3.4, the 2nd lactic acid is 2.0, urine not infected, respiratory panel negative EKG: Normal sinus rhythm, rate 83, no ischemic changes no ectopy Chest x-ray:Findings: Lung volumes are small with crowding of bronchovascular markings. There is mild bibasilar atelectasis. Lungs appear otherwise clear. Cardiomediastinal silhouette is within normal limits for technique. IMPRESSION: Mild bibasilar atelectasis. Otherwise no acute cardiopulmonary abnormality. I do not believe the patient is simply has atelectasis, I am obtaining a CT of the chest and abdomen and pelvis given the patient is unable to give me details about her symptoms CT chest: IMPRESSION: 1. Bilateral atelectasis and consolidation in the dependent portions of the lower lobes most consistent with pneumonia possibly aspiration related. There is small amount of mucus/secretions within some of the subsegmental lower lobe bronchi. 2. Indeterminate mildly enlarged mediastinal lymph nodes and mildly enlarged left hilar lymph node versus a perihilar pulmonary nodule. Short interval follow-up is recommended. CT abdomen and pelvis: MPRESSION: 1. No acute abnormality in the abdomen or pelvis. 2. Chronic findings as above. Lab Data 08/01/24 21:51 08/01/24 21:51 Labs: Lab Results 08/01/24 08/01/24 08/01/24 Range/Units 21:51 21:52 23:18 WBC 29.1 H (4.8-10.8) X10*3/uL RBC 5.46 (4.20-5.50) X10*6/uL Hgb 16.2 H (12.0-16.0) g/dl Hct 47.2 H (37.0-47.0) % MCV 86.4 (80.0-98.0) fL MCH 29.7 (27.0-33.0) pg MCHC 34.3 (31.0-35.0) g/dl RDW 14.3 (11.0-16.0) % Plt Count 347 (160-400) X10*3/uL MPV 9.1 L (9.4-12.3) fL Immature Gran % (Auto) Cancelled Neut % (Auto) Cancelled Lymph % (Auto) Cancelled [place] % (Auto) Cancelled Eos % (Auto) Cancelled Baso % (Auto) Cancelled Lymph # (Auto) Cancelled [place] # (Auto) Cancelled Eos # (Auto) Cancelled Baso # (Auto) Cancelled Abs Immat Gran (auto) Cancelled Absolute Neuts (auto) Cancelled Absolute Nucleated RBC 0.000 (0.0-0.012) X10*3/uL Nucleated RBC % (auto) 0.0 (0.0-0.2) /100WBC Neutrophils % (Manual) 80 H (45-73) % Band Neutrophils % 14 H (3-5) % Lymphocytes % (Manual) 4 L (20-40) % Monocytes % (Manual) 2 (2-11) % Abs Neuts (Manual) 27.4 H (2.0-8.3) X10*3/uL Lymphocytes # (Manual) 1.2 (1.2-4.9) X10*3/uL Monocytes # (Manual) 0.6 (0.1-1.2) X10*3/uL Platelet Estimate NORMAL (NORMAL) Plt Morphology Comment NORMAL RBC Morphology NORMAL Smear Tech's Comments MANUAL DIFF D-Dimer High Sensitivty 158 NG/ML Sodium 142 (135-145) mmol/L Potassium 3.3 (3.3-5.1) mmol/L Chloride 102 (96-108) mmol/L Carbon Dioxide 30 H (22-29) mmol/L Anion Gap 13 (12-20) BUN 12 (9-16) mg/dL Creatinine 0.78 (0.5-1.4) mg/dL Estim Creat Clear Calc 64.7 Estimated GFR > 60 Random Glucose 187 H (60-115) mg/dL Lactic Acid 3.4 H* (0.5-2.0) mmol/L Lactic Acid F/U @ 2Hr (0.5-2.0) mmol/L Calcium 9.2 (8.4-10.2) mg/dL Magnesium 1.9 (1.6-2.6) mg/dL Total Bilirubin 0.6 (0.0-1.0) mg/dL AST 24 (5-31) U/L ALT 20 (0-31) U/L Alkaline Phosphatase 144 H (39-117) U/L Total Protein 6.4 L (6.5-8.0) g/dL Albumin 3.5 (3.5-5.0) g/dL Lipase 5 L (8-78) U/L Urine Color Urine Appearance Urine pH (5.0-9.0) Ur Specific [place] (1.005-1.025) Urine Protein (Neg-Trace) mg/dL Urine Glucose (UA) (Negative) mg/dL Urine Ketones (Negative) mg/dL Urine Blood (Negative) Urine Nitrite (Negative) Ur Leukocyte Esterase (Negative) Urine RBC (0-2) /HPF Urine WBC (0-5) /HPF Ur Squamous Epith Cells (0-2) /HPF Urine Bacteria (None Seen) Hyaline Casts (0-2) /LPF Influenza Type A (PCR) NEGATIVE (Negative) Influenza Type B (PCR) NEGATIVE (Negative) RSV RNA Qual (PCR) NEGATIVE (Negative) SARS-CoV-2 RNA (RT-PCR) NEGATIVE (Negative) 08/01/24 08/02/24 Range/Units 23:57 00:51 WBC (4.8-10.8) X10*3/uL RBC (4.20-5.50) X10*6/uL Hgb (12.0-16.0) g/dl Hct (37.0-47.0) % MCV (80.0-98.0) fL MCH (27.0-33.0) pg MCHC (31.0-35.0) g/dl RDW (11.0-16.0) % Plt Count (160-400) X10*3/uL MPV (9.4-12.3) fL Immature Gran % (Auto) Neut % (Auto) Lymph % (Auto) [place] % (Auto) Eos % (Auto) Baso % (Auto) Lymph # (Auto) [place] # (Auto) Eos # (Auto) Baso # (Auto) Abs Immat Gran (auto) Absolute Neuts (auto) Absolute Nucleated RBC (0.0-0.012) X10*3/uL Nucleated RBC % (auto) (0.0-0.2) /100WBC Neutrophils % (Manual) (45-73) % Band Neutrophils % (3-5) % Lymphocytes % (Manual) (20-40) % Monocytes % (Manual) (2-11) % Abs Neuts (Manual) (2.0-8.3) X10*3/uL Lymphocytes # (Manual) (1.2-4.9) X10*3/uL Monocytes # (Manual) (0.1-1.2) X10*3/uL Platelet Estimate (NORMAL) Plt Morphology Comment RBC Morphology Smear Tech's Comments D-Dimer High Sensitivty NG/ML Sodium (135-145) mmol/L Potassium (3.3-5.1) mmol/L Chloride (96-108) mmol/L Carbon Dioxide (22-29) mmol/L Anion Gap (12-20) BUN (9-16) mg/dL Creatinine (0.5-1.4) mg/dL Estim Creat Clear Calc Estimated GFR Random Glucose (60-115) mg/dL Lactic Acid (0.5-2.0) mmol/L Lactic Acid F/U @ 2Hr 2.0 (0.5-2.0) mmol/L Calcium (8.4-10.2) mg/dL Magnesium (1.6-2.6) mg/dL Total Bilirubin (0.0-1.0) mg/dL AST (5-31) U/L ALT (0-31) U/L Alkaline Phosphatase (39-117) U/L Total Protein (6.5-8.0) g/dL Albumin (3.5-5.0) g/dL Lipase (8-78) U/L Urine Color Yellow Urine Appearance Clear Urine pH 8.0 (5.0-9.0) Ur Specific [place] 1.010 (1.005-1.025) Urine Protein Negative (Neg-Trace) mg/dL Urine Glucose (UA) Negative (Negative) mg/dL Urine Ketones Negative (Negative) mg/dL Urine Blood Negative (Negative) Urine Nitrite Negative (Negative) Ur Leukocyte Esterase Trace H (Negative) Urine RBC 0-2 (0-2) /HPF Urine WBC 0-5 (0-5) /HPF Ur Squamous Epith Cells 0-2 (0-2) /HPF Urine Bacteria None Seen (None Seen) Hyaline Casts 0-2 (0-2) /LPF Influenza Type A (PCR) (Negative) Influenza Type B (PCR) (Negative) RSV RNA Qual (PCR) (Negative) SARS-CoV-2 RNA (RT-PCR) (Negative) Discharge Plan Discharge Clinical Impression: Sepsis, Aspiration pneumonia, Hypoxia Patient Disposition: Admitted As Inpatient
[2024-08-01 23:55] LABS: Reflex Lactate? Lactic Acid Added
[2024-08-01 23:57] VITALS: BP 91/36; PULSE 67; RESP 13; TEMP 36.6; O2SAT 93
[2024-08-01 23:59] VITALS: BP 95/38; PULSE 61
[2024-08-02] VITALS (9 sets, daily range): BP systolic 95–144; BP diastolic 40–65; PULSE 61–76; RESP 15–18; TEMP 36.5–37.2; O2SAT 91–98; BMI 26.6
--- NOTE | 2024-08-02 | ECG_ITS ---
Test Reason : chest pain Blood Pressure : */* mmHG Vent. Rate : 71 BPM Atrial Rate : 71 BPM P-R Int : 196 ms QRS Dur : 92 ms QT Int : 420 ms P-R-T Axes : 41 -24 64 degrees QTcB Int : 456 ms Normal sinus rhythm Normal ECG When compared with ECG of 01-Aug-2024 22:48, Criteria for Septal infarct are no longer Present Referred By: Neil Dow Electronically Signed By: WALE HAWKINS
[2024-08-02] MEDS: iohexoL 350 MG/ML 100 ML INFUS..BTL 85 ML IV (00:24)
[2024-08-02] MEDS: Albumin Human 25 % 100 ML 133.33 ML IV ×2 (00:54→01:45)
[2024-08-02 00:57] LABS: Appearance Urine Clear; Color Urine Yellow; Glucose Urine UA Negative (Negative); Leukocyte Esterase Urine Trace (Negative); Nitrite Urine Negative (Negative); UMIC TRIGGER UACC YES; Urine Blood Negative (Negative); Urine Ketones Negative (Negative); Urine Protein Negative (Neg-Trace)
[2024-08-02 01:01] LABS: Bacteria Urine None Seen (None Seen); Hyaline Casts Urine 0-2 /LPF (0-2); RBC Urine 0-2 /HPF (0-2); Squamous Epithelial Cell Urine 0-2 /HPF (0-2); WBC Urine 0-5 /HPF (0-5)
[2024-08-02 03:15] LABS: Venous Blood Gas Refer to POC result
[2024-08-02 03:20] LABS: VBG Base Excess 4.5 mmol/L; VBG HCO3 29 mmol/L (22-26); VBG pCO2 46 mmHg; VBG pH 7.41 (7.32-7.43); VBG pO2 66 mmHg
--- NOTE | 2024-08-02 03:56 | P.HPHOSP_ITS ---
History of Present Illness Date of Service: 08/02/24 Attending physician on admission: Neil Dow Chief Complaint: AMS patient is a 74-year-old female with a past medical history significant for Mclean's esophagus, GERD, HLD, awake, fibromyalgia, type 2 diabetes, HFpEF, who presented to the ED from an SNF via EMS due to altered mental status, fever, and shortness of breath. She was satting in the 80s on room air at the facility. At baseline she does not use oxygen. the patient is altered and unable to give a history. Workup in the ED was significant for aspiration pneumonia with acute hypoxia and sepsis. She was started on ceftriaxone and doxycycline in ED and given a 30 cc/kg fluid bolus with multiple doses of albumin due to hypotension. COVID flu and RSV were all negative. D-dimer also negative. Abdominopelvic CT negative UA negative. Her temperature was up to 102.8 and she has been tachycardic with a white count is 29.1. She has been maintaining her blood pressure since receiving the albumin. Review of Systems 2 Review of Systems: Yes Unobtainable due to mental condition [facility] Medical History GERD (gastroesophageal reflux disease) Personal history of malignant melanoma of skin Osteoarthritis HTN (hypertension) Epilepsy, unspecified, not intractable, without status epilepticus Anxiety disorder Hyperlipidemia Thiamine deficiency Myalgia Sciatica Low back pain Type II diabetes mellitus Depression CHF (congestive heart failure) Melanoma Myofascial pain Fibromyalgia Acid reflux Surgical History (Updated 07/07/22 @ 10:04 by Kenyatta Tay) History of esophagogastroduodenoscopy (EGD) History of knee replacement Social History Household Members Other:: Resides @ [facility] Are you a primary infant childcare provider to a significant other at home: No Alcohol intake: former Patient Tobacco Use Status: Current everyday Tobacco user Tobacco use type: Cigarette Cigarettes Per Day: 4 Years Smoked: 50 years Advance Directives: No Advance Directives Information Provided: Yes Do you have a plan to hurt others: No Plan Current occupational status: disabled Meds Allergies Allergy/AdvReac Type Severity Reaction Status Date / Time tramadol [Ultram] Allergy Intermediate Unknown Verified 08/01/24 21:37 Active Medications: Current Medications Acetaminophen (Acetaminophen 325 Mg Tablet) 975 mg PO Q6H PRN PRN Reason: Pain, Mild 1-3,fever,headache Calcium Carbonate (Calcium Carbonate 750 Mg Tab.Chew) 750 mg PO Q4H PRN PRN Reason: Heartburn Enoxaparin Sodium (Enoxaparin Sodium 40 Mg/0.4 Ml Syringe) 40 mg SUBCUT Q24H [facility] Doxycycline Hyclate 100 mg/ (Sodium Chloride) 250 mls @ 166.67 mls/hr IV ONCE ONE Stop: 08/02/24 04:21 Ampicillin Sodium/Sulbactam (Sodium 3 gm/ Sodium Chloride) 100 mls @ 200 mls/hr IV Q6H [facility] Magnesium Hydroxide (Milk Of Magnesia 30 Ml Oral.Susp) 30 ml PO DAILY PRN PRN Reason: Constipation Melatonin (Melatonin 3 Mg Tablet) 6 mg PO BEDTIME PRN PRN Reason: Insomnia Ondansetron HCl (Ondansetron Hcl 4 Mg/2 Ml Vial) 4 mg IVPUSH Q8H PRN PRN Reason: Nausea and Vomiting Sodium Chloride (0.9 % Sodium Chloride Flush 3 Ml Syringe) 3 ml IVFLUSH QSHIFT [facility] Home Medications ?Medication ?Instructions ?Recorded ?Confirmed ?Last Taken ?Type acetaminophen 650 mg 650 mg PO Q8H 12/20/21 07/07/22 Unknown History tablet,extended release atorvastatin 40 mg tablet 40 mg PO DAILY 12/20/21 07/07/22 Unknown History bisacodyl 10 mg rectal suppository 10 mg [place] DAILY PRN Constipation 12/20/21 07/07/22 Unknown History cyclobenzaprine 5 mg tablet 5 mg PO TID PRN Muscle Pain 12/20/21 07/07/22 Unknown History famotidine 40 mg tablet 40 mg PO DAILY 12/20/21 07/07/22 Unknown History gabapentin 600 mg tablet 600 mg PO TID 12/20/21 07/07/22 06/21/22 04:00 History hydrocodone 10 mg-acetaminophen tab PO 12/20/21 07/07/22 Unknown History 325 mg tablet loperamide 2 mg capsule 2 mg PO Q6H PRN Diarrhea 12/20/21 07/07/22 Unknown History loratadine 10 mg tablet 10 mg PO DAILY 12/20/21 07/07/22 Unknown History magnesium oxide 400 mg PO DAILY 12/20/21 07/07/22 Unknown History nortriptyline 25 mg capsule 25 mg PO DAILY 12/20/21 07/07/22 06/21/22 04:00 History cholecalciferol (vitamin D3) 50 50 mcg PO DAILY 06/20/22 07/07/22 Unknown History mcg (2,000 unit) capsule (Vitamin D3) furosemide 40 mg tablet 40 mg PO DAILY 06/20/22 07/07/22 Unknown History gabapentin 300 mg capsule PO 06/20/22 07/07/22 Unknown History morphine 15 mg tablet,extended 15 mg PO TID 06/20/22 07/07/22 06/21/22 04:00 History release nortriptyline 25 mg capsule 50 mg PO BEDTIME 06/20/22 07/07/22 Unknown History potassium chloride 20 mEq 20 meq PO DAILY 06/20/22 07/07/22 Unknown History tablet,extended release(part/cryst) thiamine HCl (vitamin B1) 100 mg 100 mg PO DAILY 06/20/22 07/07/22 Unknown History tablet (Vitamin B-1) Physical Exam 2 Vital Signs and Narrative: Vital Signs: Last Vital Signs Temp 97.7 F 08/02/24 03:22 Pulse 61 08/02/24 03:22 Resp 15 08/02/24 03:22 BP 95/40 L 08/02/24 03:22 Pulse Ox 94 08/02/24 03:22 O2 Del Method Nasal Cannula 08/02/24 03:22 O2 Flow Rate 4 08/02/24 03:22 Oxygen Flow Rate 10 08/01/24 21:24 BMI result Body Mass Index 25.8 General: Sleeping, not alert or arousable, no acute distress Resp: no wheezing or crackles auscultated, diminished throughout CVS: S1, S2, RRR GI: +BS, NT, no distention Skin: Warm, dry Extremities: No lower extremity pittingedema Results Labs 08/01/24 21:51 08/01/24 21:51 Labs: Laboratory Results - last 24 hr 08/01/24 08/01/24 08/01/24 21:51 21:52 23:18 MCV 86.4 MCH 29.7 MCHC 34.3 RDW 14.3 Plt Count 347 MPV 9.1 L Immature Gran % (Auto) Cancelled Neut % (Auto) Cancelled Lymph % (Auto) Cancelled [place] % (Auto) Cancelled Eos % (Auto) Cancelled Baso % (Auto) Cancelled Lymph # (Auto) Cancelled [place] # (Auto) Cancelled Eos # (Auto) Cancelled Baso # (Auto) Cancelled Abs Immat Gran (auto) Cancelled Absolute Neuts (auto) Cancelled Absolute Nucleated RBC 0.000 Nucleated RBC % (auto) 0.0 Neutrophils % (Manual) 80 H Band Neutrophils % 14 H Lymphocytes % (Manual) 4 L Monocytes % (Manual) 2 Abs Neuts (Manual) 27.4 H Lymphocytes # (Manual) 1.2 Monocytes # (Manual) 0.6 Platelet Estimate NORMAL Plt Morphology Comment NORMAL RBC Morphology NORMAL Smear Tech's Comments MANUAL DIFF D-Dimer High Sensitivty 158 VBG pH VBG pCO2 VBG pO2 VBG HCO3 VBG O2 Saturation VBG Base Excess Anion Gap 13 Estim Creat Clear Calc 64.7 Estimated GFR > 60 Random Glucose 187 H Lactic Acid 3.4 H* Lactic Acid F/U @ 2Hr Calcium 9.2 Magnesium 1.9 Total Bilirubin 0.6 AST 24 ALT 20 Alkaline Phosphatase 144 H Total Protein 6.4 L Albumin 3.5 Lipase 5 L Urine Color Urine Appearance Urine pH Ur Specific [place] Urine Protein Urine Glucose (UA) Urine Ketones Urine Blood Urine Nitrite Ur Leukocyte Esterase Urine RBC Urine WBC Ur Squamous Epith Cells Urine Bacteria Hyaline Casts Influenza Type A (PCR) NEGATIVE Influenza Type B (PCR) NEGATIVE RSV RNA Qual (PCR) NEGATIVE SARS-CoV-2 RNA (RT-PCR) NEGATIVE 08/01/24 08/02/24 08/02/24 23:57 00:51 03:14 MCV MCH MCHC RDW Plt Count MPV Immature Gran % (Auto) Neut % (Auto) Lymph % (Auto) [place] % (Auto) Eos % (Auto) Baso % (Auto) Lymph # (Auto) [place] # (Auto) Eos # (Auto) Baso # (Auto) Abs Immat Gran (auto) Absolute Neuts (auto) Absolute Nucleated RBC Nucleated RBC % (auto) Neutrophils % (Manual) Band Neutrophils % Lymphocytes % (Manual) Monocytes % (Manual) Abs Neuts (Manual) Lymphocytes # (Manual) Monocytes # (Manual) Platelet Estimate Plt Morphology Comment RBC Morphology Smear Tech's Comments D-Dimer High Sensitivty VBG pH 7.41 VBG pCO2 46 VBG pO2 66 VBG HCO3 29 H VBG O2 Saturation 91.0 VBG Base Excess 4.5 Anion Gap Estim Creat Clear Calc Estimated GFR Random Glucose Lactic Acid Lactic Acid F/U @ 2Hr 2.0 Calcium Magnesium Total Bilirubin AST ALT Alkaline Phosphatase Total Protein Albumin Lipase Urine Color Yellow Urine Appearance Clear Urine pH 8.0 Ur Specific [place] 1.010 Urine Protein Negative Urine Glucose (UA) Negative Urine Ketones Negative Urine Blood Negative Urine Nitrite Negative Ur Leukocyte Esterase Trace H Urine RBC 0-2 Urine WBC 0-5 Ur Squamous Epith Cells 0-2 Urine Bacteria None Seen Hyaline Casts 0-2 Influenza Type A (PCR) Influenza Type B (PCR) RSV RNA Qual (PCR) SARS-CoV-2 RNA (RT-PCR) Assessment and Plan (1) Acute metabolic encephalopathy: Status: Acute (2) Acute hypoxic respiratory failure: Status: Acute (3) Sepsis: Status: Acute (4) Aspiration pneumonia: Status: Acute Plan patient is a 74-year-old female with a past medical history significant for Mclean's esophagus, GERD, HLD, osteoarthritis, fibromyalgia, type 2 diabetes, HFpEF, who presented to the ED from an SNF via EMS due to altered mental status, fever, and shortness of breath. acute metabolic encephalopathy with acute hypoxic respiratory failure and sepsis secondary to aspiration pneumonia - WBC 29.1, tachycardic, temperature of 102.8 degrees, lactic acid 3.4, 2 on repeat (likely secondary to demand ischemia from hypotension), blood cultures x2 pending - chest x-ray negative - chest CT suggestive of aspiration pneumonia with reactive lymph nodes - COVID/flu/ RSV negative - D-dimer negative - abdominopelvic CT negative - patient given 30 cc/kg fluid bolus in ED due to hypotension with additional albumin, currently maintaining blood pressures - started on ceftriaxone and doxycycline in ED, switch to Unasyn for aspiration pneumonia coverage - NPO - speech bedside swallow evaluation - follow CBC and BMP Mclean's esophagus/GERD - continue home meds HLD - continue home meds type 2 diabetes - sliding scale insulin chronic HFpEF, no acute exacerbation - imaging not suggestive of pulmonary congestion - no lower extremity edema full code, Presumed due to altered mental status VTE prophylaxis: Lovenox patient with acute metabolic encephalopathy with acute hypoxic respiratory failure and sepsis secondary to aspiration pneumonia, requiring admission for at least 2 midnight stay for IV antibiotics, fluids and monitoring. Quality Stroke Does the patient have a stroke diagnosis?: No VTE Prior VTE?: No VTE Risk Level:: Medical - moderate - high VTE Device Contraindication: Treatment Not Indicated VTE Drug Contraindication: N/A - Med Ordered
[2024-08-02 04:53] LABS: Glucose, Whole Blood 152 mg/dL (60-115)
[2024-08-02] MEDS: Doxycycline Hyclate 100 MG in 0.9 % Sodium Chloride 250 ML 166.67 MG IV (05:31)
[2024-08-02] MEDS: Enoxaparin Sodium 40 MG/0.4 ML SYRINGE SUBCUT (05:32)
[2024-08-02 06:31] LABS: Hematocrit 41.4 % (37.0-47.0); Hemoglobin 13.3 g/dl (12.0-16.0); Mean Corpuscular HGB Conc 32.1 g/dl (31.0-35.0); Mean Corpuscular Hemoglobin 29.4 pg (27.0-33.0); Mean Corpuscular Volume 91.4 fL (80.0-98.0); Mean Platelet Volume 9.3 fL (9.4-12.3); Platelet Count 271 X10*3/uL (160-400); Red Blood Count 4.53 X10*6/uL (4.20-5.50); Red Cell Distribution Width 14.6 % (11.0-16.0)
[2024-08-02 06:33] LABS: WBC ABN SCTR FOR CBC 1
[2024-08-02 06:34] LABS: White Blood Count 34.7 X10*3/uL (4.8-10.8)
[2024-08-02 06:36] LABS: Anion Gap 14 (12-20); Blood Urea Nitrogen 13 mg/dL (9-16); Calcium 8.2 mg/dL (8.4-10.2); Carbon Dioxide 24 mmol/L (22-29); Chloride 109 mmol/L (96-108); Creatinine Clr Calc Pharmacy 77.7; Estimated Glomerular Filt Rate > 60; Glucose Random 132 mg/dL (60-115); Potassium 4.9 mmol/L (3.3-5.1); Sodium 142 mmol/L (135-145)
--- NOTE | 2024-08-02 07:02 | PC.NURSE ---
Pt awake and calling out into hallway. Pt A&Ox4.
[2024-08-02] MEDS: 0.9 % Sodium Chloride Flush 3 ML SYRINGE IVFLUSH ×3 (07:25→20:11)
[2024-08-02] MEDS: Ampicillin Sodium/Sulbactam Na 3 GM in 0.9 % Sodium Chloride 100 ML IV ×3 (07:26→20:12)
[2024-08-02 07:43] LABS: Band Neutrophils Percent 8 % (3-5); Lymphocytes Absolute Manual 2.4 X10*3/uL (1.2-4.9); Lymphocytes Percent Manual 7 % (20-40); Monocytes Absolute Manual 2.1 X10*3/uL (0.1-1.2); Monocytes Percent Manual 6 % (2-11); Neutrophils Absolute Manual 30.2 X10*3/uL (2.0-8.3); Neutrophils Percent Manual 79 % (45-73)
[2024-08-02 07:46] LABS: Burr Cells 1+ (0-2) /OIF; Platelet Estimate NORMAL (NORMAL); Platelet Morphology Comment NORMAL; RBC Morphology NOTED
--- NOTE | 2024-08-02 08:11 | PHA.MEDREC ---
Pharmacy Consult ? Medication Reconciliation Pharmacy has completed the medication reconciliation, utilized list from [facility].
--- NOTE | 2024-08-02 10:14 | PC.NURSE ---
Speech Therapy at bedside for eval.
[2024-08-02 10:28] LABS: Glucose, Whole Blood 116 mg/dL (60-115)
--- NOTE | 2024-08-02 13:10 | MHC.SL.SWA ---
Speech Pathologist Impression: Oral Phase Dysphagia Dysphasia Diet Status: Upgrade from NPO to REGULAR/THIN Liquid Consistency and Strategies for Safe Swallow: Liquid Intake Recommendation: Thin Solid Food Consistency: Dietary Recommendations: Regular Additional Modifications to Solid Foods: Patient presents with mildly slowed oral phase d/t lack of dentition, however, with complete oral clearance. No overt s/s of aspiration seen with PO trials at bedside. Patient denies having trouble swallowing and is reportedly on an unmodified diet at [facility]. Patient's does have GI conditions, hx significant for Han's esophagus and GERD. Recommend reflux precautions: avoid dietary triggers, avoid eating before bed, remain upright during meal and for at least 30 minutes afterwards. Patient is recommended to elect softer foods from Regular menu, with Thin liquids, pills Whole with Liquid. Oral Medication Intake: Whole with Liquid Please contact the pharmacy regarding appropriate crushable or liquid drug formulations that are available whenever modified delivery is recommended. Supervision While Eating and Drinking for Safe Swallow: Direct Supervision (1:1) Foods to Avoid: [place] hard or chewy foods Recommendation for Speech: Inpatient Speech Therapy Comment: 1-2 f/u to monitor tolerance Frequency/Duration: Date Range for Service Req: Timeline to reassess: Chain Mortiser Operator Clinican/Clinical Fellow: No Supervisory Statement: I have reviewed and agree with the student/clinical fellow's documentation: N/A Speech Language Pathologist: Vidya Hall M.A., CCC-BUSINESS INITIATIVES MANAGER
[2024-08-02] MEDS: Morphine Sulfate Immed Release 15 MG TABLET PO ×2 (14:32→17:22)
--- NOTE | 2024-08-02 14:50 | MHC.CM.PN ---
pt from [facility] where she will return when dcd
[2024-08-02 14:52] LABS: CDiff Gene PCR NEGATIVE (Negative)
[2024-08-02 15:32] LABS: Glucose, Whole Blood 102 mg/dL (60-115)
[2024-08-02] MEDS: Gabapentin 600 MG TABLET PO ×2 (15:39→20:11)
[2024-08-02] MEDS: busPIRone HCl 10 MG TABLET PO ×2 (15:39→20:11)
[2024-08-02] MEDS: Magnesium Oxide 400 MG TABLET PO ×2 (15:39→20:11)
--- NOTE | 2024-08-02 16:11 | PM.EVENT ---
Event Note Date of Service: 08/02/24 Event Note: Seen and examined this morning Admitted earlier today for aspiration pneumonia Denies any significant shortness of breath or cough Expiratory rhonchi on exam patient is a 74-year-old female with a past medical history significant for Mclean's esophagus, GERD, HLD, osteoarthritis, fibromyalgia, type 2 diabetes, HFpEF, who presented to the ED from an SNF via EMS due to altered mental status, fever, and shortness of breath. acute hypoxic respiratory failure and severe sepsis secondary to aspiration pneumonia WBC 29.1, tachycardic, temperature of 102.8 degrees, lactic acid 3.4, 2 on repeat (likely secondary to demand ischemia from hypotension), blood cultures x2 pending chest CT suggestive of aspiration pneumonia with reactive lymph nodes COVID/flu/ RSV negative D-dimer negative patient given 30 cc/kg fluid bolus in ED due to hypotension with additional albumin, currently maintaining blood pressures started on ceftriaxone and doxycycline in ED, switch to Unasyn for aspiration pneumonia coverage seen by speech, cleared for diet follow CBC and BMP blood cultures pending Continue supplemental oxygen, wean as tolerated significant leukocytosis, cdif negative, if doesn't trend down may need further investigation Toxic metabolic encephalopathy Patient awake alert, appears resolved at this time If recurs would consider reducing chronic pain medication Mclean's esophagus/GERD continue home meds HLD continue home meds type 2 diabetes no meds on med rec check hba1c diabetic diet sliding scale insulin chronic HFpEF, no acute exacerbation imaging not suggestive of pulmonary congestion no lower extremity edema hold Lasix for now, can resume in am if bp remains stable Hypothyroidism Continue Synthroid HLD Continue statin Chronic pain Continue baseline morphine, oxycodone, gabapentin full code, Presumed due to altered mental status VTE prophylaxis: Lovenox patient with acute metabolic encephalopathy with acute hypoxic respiratory failure and sepsis secondary to aspiration pneumonia, requiring admission for at least 2 midnight stay for IV antibiotics, fluids and monitoring. Time Spent With Patient Time: Total time managing care of this patient today ____ minutes.
[2024-08-02 16:35] LABS: Estimated Average Glucose 146 mg/dL; Hemoglobin A1C 176.4195 umol/L; Hemoglobin A1c % 6.7 % (<6.0); Total Hemoglobin (HGBA1C) 3528.8103 umol/L
[2024-08-02 19:24] LABS: Glucose, Whole Blood 122 mg/dL (60-115)
[2024-08-02] MEDS: Atorvastatin Calcium 40 MG TABLET PO (20:11)
[2024-08-02] MEDS: Nortriptyline HCl 25 MG CAPSULE 75 MG PO (20:11)
[2024-08-02] MEDS: Famotidine 20 MG TABLET 40 MG PO (20:11)
[2024-08-02] MEDS: Gabapentin 300 MG CAPSULE PO (20:12)
[2024-08-02] MEDS: Nicotine 14 MG PATCH.TD24 TRANSDERMA (21:35)
[2024-08-02 21:39] LABS: Troponin-I High Sensitivity 30.9 ng/L (<3.5-17.0)
[2024-08-02] MEDS: Calcium Carbonate 750 MG TAB.CHEW PO (21:39)
[2024-08-03] VITALS: BP 117/58; PULSE 75; RESP 16; TEMP 37; O2SAT 95
[2024-08-03 00:23] LABS: Troponin-I High Sensitivity 37.6 ng/L (<3.5-17.0)
[2024-08-03] MEDS: Morphine Sulfate Immed Release 15 MG TABLET PO ×5 (00:34→21:53)
[2024-08-03] MEDS: Ampicillin Sodium/Sulbactam Na 3 GM in 0.9 % Sodium Chloride 100 ML IV ×4 (00:35→18:17)
[2024-08-03] MEDS: Calcium Carbonate 750 MG TAB.CHEW PO (03:53)
[2024-08-03] MEDS: Enoxaparin Sodium 40 MG/0.4 ML SYRINGE SUBCUT (03:53)
[2024-08-03 04:00] VITALS: BP 125/60; PULSE 73; RESP 16; TEMP 36.9; O2SAT 93
[2024-08-03 04:53] LABS: Glucose, Whole Blood 96 mg/dL (60-115)
[2024-08-03] MEDS: Omeprazole 20 MG CAPSULE.DR PO (05:40)
[2024-08-03] MEDS: Levothyroxine Sodium 125 MCG TABLET PO (05:40)
[2024-08-03] MEDS: oxyCODONE HCl Immed Release 5 MG TABLET 7.5 MG PO (05:42)
[2024-08-03 07:56] VITALS: BP 155/67; PULSE 82; RESP 18; TEMP 37.1; O2SAT 94
[2024-08-03 08:13] LABS: Glucose, Whole Blood 102 mg/dL (60-115)
[2024-08-03 08:22] LABS: Basophils Absolute Auto 0.1 X10*3/uL (0.0-0.2); Basophils Percent Auto 0.3 % (0-2); Eosinophils Percent Auto 0.2 % (0-4); Hematocrit 39.9 % (37.0-47.0); Hemoglobin 13.3 g/dl (12.0-16.0); Imm Gran Abs Auto 0.14 X10*3/uL (0.00-0.03); Imm Gran Pct Auto 0.6 % (0.0-0.4); Lymphocytes Absolute Auto 1.6 X10*3/uL (1.2-4.9); Lymphocytes Percent Auto 7.3 % (20-40); MANUAL DIFF FLAG SCAN; Mean Corpuscular HGB Conc 33.3 g/dl (31.0-35.0); Mean Corpuscular Hemoglobin 29.4 pg (27.0-33.0); Mean Corpuscular Volume 88.3 fL (80.0-98.0); Mean Platelet Volume 9.8 fL (9.4-12.3); Monocytes Absolute Auto 1.9 X10*3/uL (0.1-1.2); Monocytes Percent Auto 8.5 % (2-11); Neutrophils Absolute Auto 18.7 x10*3/uL (2.0-8.3); Neutrophils Percent Auto 83.1 % (45-73); Platelet Count 278 X10*3/uL (160-400); Red Blood Count 4.52 X10*6/uL (4.20-5.50); Red Cell Distribution Width 14.6 % (11.0-16.0); SCAN SMEAR FLAG 1; White Blood Count 22.5 X10*3/uL (4.8-10.8)
[2024-08-03 08:34] LABS: Blood Urea Nitrogen 10 mg/dL (9-16); Calcium 8.8 mg/dL (8.4-10.2); Creatinine Clr Calc Pharmacy 83.9; Estimated Glomerular Filt Rate > 60; Glucose Random 82 mg/dL (60-115)
[2024-08-03 08:42] LABS: Anion Gap 11 (12-20); Carbon Dioxide 27 mmol/L (22-29); Chloride 108 mmol/L (96-108); Potassium 3.3 mmol/L (3.3-5.1); Sodium 143 mmol/L (135-145)
[2024-08-03 09:14] LABS: SLIDE REVIEW VERIFIED
[2024-08-03] MEDS: Thiamine HCL 100 MG TABLET PO (09:39)
[2024-08-03] MEDS: Multivitamin TABLET 1 TAB PO (09:41)
[2024-08-03] MEDS: busPIRone HCl 10 MG TABLET PO ×3 (09:41→20:47)
[2024-08-03] MEDS: 0.9 % Sodium Chloride Flush 3 ML SYRINGE IVFLUSH ×3 (09:41→18:18)
[2024-08-03] MEDS: Nicotine 14 MG PATCH.TD24 TRANSDERMA (09:41)
[2024-08-03] MEDS: Gabapentin 600 MG TABLET PO ×3 (09:41→20:47)
[2024-08-03] MEDS: Gabapentin 300 MG CAPSULE PO ×2 (09:41→20:46)
[2024-08-03] MEDS: Magnesium Oxide 400 MG TABLET PO ×3 (09:41→20:47)
--- NOTE | 2024-08-03 11:47 | P.PNIM_ITS ---
Subjective Subjective Date of Service: 08/03/24 Review of Systems Follow up sepsis, pna feeling better but still on oxygen Physical Exam 2 Vital Signs: Vital Signs: Last Vital Signs Temp 98.7 F 08/03/24 07:56 Pulse 82 08/03/24 07:56 Resp 18 08/03/24 07:56 BP 155/67 H 08/03/24 07:56 Pulse Ox 94 08/03/24 07:56 O2 Del Method Room Air 08/03/24 07:56 O2 Flow Rate 2 08/03/24 07:56 Oxygen Flow Rate 10 08/01/24 21:24 BMI result Body Mass Index 26.6 Appearing in no acute distress lung sounds are clear to auscultation heart regular rate rhythm, clear S1, S2 positive bowel sounds, abdomen is soft, nontender neuro patient is alert x3, no focal deficits Objective Data Active Medications Acetaminophen (Acetaminophen 325 Mg Tablet) 975 mg PO Q6H PRN PRN Reason: Pain, Mild 1-3,fever,headache Albuterol Sulfate (Albuterol Sulfate 90 Mcg 8 Gm Inhaler) 2 puff INHALE Q4H PRN PRN Reason: Shortness of Breath Atorvastatin Calcium (Atorvastatin Calcium 40 Mg Tablet) 40 mg PO BEDTIME [facility] Last Admin: 08/02/24 20:11 Dose: 40 mg Documented By: ISSAC Buspirone HCl (Buspirone Hcl 10 Mg Tablet) 10 mg PO TID [facility] Last Admin: 08/03/24 09:41 Dose: 10 mg Documented By: GUANAKO Calcium Carbonate (Calcium Carbonate 750 Mg Tab.Chew) 750 mg PO Q4H PRN PRN Reason: Heartburn Last Admin: 08/03/24 03:53 Dose: 750 mg Documented By: DALIA Cyclobenzaprine HCl (Cyclobenzaprine Hcl 5 Mg Tablet) 5 mg PO TID PRN PRN Reason: Muscle Pain Dextrose (Dextrose 50 % 25 Gm/50 Ml Syringe) 25 gm IVPUSH Q15M PRN; Protocol PRN Reason: per Hypoglycemia Standing Ord. Enoxaparin Sodium (Enoxaparin Sodium 40 Mg/0.4 Ml Syringe) 40 mg SUBCUT Q24H [facility] Last Admin: 08/03/24 03:53 Dose: 40 mg Documented By: DALAI Famotidine (Famotidine 20 Mg Tablet) 40 mg PO BEDTIME [facility] Last Admin: 08/02/24 20:11 Dose: 40 mg Documented By: ISSAC Gabapentin (Gabapentin 300 Mg Capsule) 300 mg PO BID [facility] Last Admin: 08/03/24 09:41 Dose: 300 mg Documented By: GUANAKO Gabapentin (Gabapentin 600 Mg Tablet) 600 mg PO TID [facility] Last Admin: 08/03/24 09:41 Dose: 600 mg Documented By: GUANAKO Glucose (Glucose Gel 15 Gm Gel..Gram.) 15 gm PO Q15M PRN; Protocol PRN Reason: per Hypoglycemia Standing Ord. Guaifenesin (Guaifenesin La 600 Mg Tab.Er.12h) 600 mg PO Q12H PRN PRN Reason: Cough Ampicillin Sodium/Sulbactam (Sodium 3 gm/ Sodium Chloride) 100 mls @ 200 mls/hr IV Q6H [facility] Last Infusion: 08/03/24 07:13 Dose: Infused Documented By: GUANAKO Levothyroxine Sodium (Levothyroxine Sodium 125 Mcg Tablet) 125 mcg PO DAILY@0600 [facility] Last Admin: 08/03/24 05:40 Dose: 125 mcg Documented By: JOHANNA Loperamide HCl (Loperamide Hcl 2 Mg Capsule) 2 mg PO Q6H PRN PRN Reason: Diarrhea Magnesium Hydroxide (Milk Of Magnesia 30 Ml Oral.Susp) 30 ml PO DAILY PRN PRN Reason: Constipation Magnesium Oxide (Magnesium Oxide 400 Mg Tablet) 400 mg PO TID [facility] Last Admin: 08/03/24 09:41 Dose: 400 mg Documented By: GUANAKO Melatonin (Melatonin 3 Mg Tablet) 6 mg PO BEDTIME PRN PRN Reason: Insomnia Morphine Sulfate (Morphine Sulfate Immed Release 15 Mg Tablet) 15 mg PO QID [facility] Last Admin: 08/03/24 09:39 Dose: 15 mg Documented By: GUANAKO Multivitamins/Vitamin C (Multivitamin Tablet) 1 tab PO DAILY [facility] Last Admin: 08/03/24 09:41 Dose: 1 tab Documented By: GUANAKO Nicotine (Nicotine 14 Mg Patch.Td24) 14 mg TRANSDERMA DAILY [facility] Last Admin: 08/03/24 09:41 Dose: 14 mg Documented By: GUANAKO Nitroglycerin (Nitroglycerin 0.4 Mg Tab.Subl) 0.4 mg SUBLINGUAL Q5MX3 PRN PRN Reason: Chest Pain Nortriptyline HCl (Nortriptyline Hcl 25 Mg Capsule) 75 mg PO BEDTIME [facility] Last Admin: 08/02/24 20:11 Dose: 75 mg Documented By: ISSAC Omeprazole (Omeprazole 20 Mg Capsule.Dr) 20 mg PO DAILY@0630 [facility] Last Admin: 08/03/24 05:40 Dose: 20 mg Documented By: JOHANNA Ondansetron HCl (Ondansetron Hcl 4 Mg/2 Ml Vial) 4 mg IVPUSH Q8H PRN PRN Reason: Nausea and Vomiting Oxycodone HCl (Oxycodone Hcl Immed Release 5 Mg Tablet) 7.5 mg PO Q6H PRN PRN Reason: Breakthrough Pain Last Admin: 08/03/24 05:42 Dose: 7.5 mg Documented By: JOHANNA Sodium Chloride (0.9 % Sodium Chloride Flush 3 Ml Syringe) 3 ml IVFLUSH QSHIFT [facility] Last Admin: 08/03/24 09:41 Dose: 3 ml Documented By: GUANAKO Sodium Chloride (Sodium Chloride 0.65 % Nasal 44 Ml Sprbtl) 2 spray NOSTRIL-B Q4H PRN PRN Reason: allergies Thiamine HCl (Thiamine Hcl 100 Mg Tablet) 100 mg PO DAILY [facility] Last Admin: 08/03/24 09:39 Dose: 100 mg Documented By: GUANAKO Labs 08/03/24 07:49 08/03/24 07:49 Labs: Laboratory Results - last 24 hr 08/02/24 08/02/24 08/02/24 06:02 13:54 15:26 MCV MCH MCHC RDW Plt Count MPV Immature Gran % (Auto) Neut % (Auto) Lymph % (Auto) [place] % (Auto) Eos % (Auto) Baso % (Auto) Lymph # (Auto) [place] # (Auto) Eos # (Auto) Baso # (Auto) Abs Immat Gran (auto) Absolute Neuts (auto) Absolute Nucleated RBC Nucleated RBC % (auto) Smear Tech's Comments Anion Gap Estim Creat Clear Calc Estimated GFR POC Glucose 102 Random Glucose Estimat Average Glucose 146 Hemoglobin A1c % 6.7 H Calcium Troponin I High Sens C. difficile Tox B Gene NEGATIVE 08/02/24 08/02/24 08/03/24 19:17 21:14 00:00 MCV MCH MCHC RDW Plt Count MPV Immature Gran % (Auto) Neut % (Auto) Lymph % (Auto) [place] % (Auto) Eos % (Auto) Baso % (Auto) Lymph # (Auto) [place] # (Auto) Eos # (Auto) Baso # (Auto) Abs Immat Gran (auto) Absolute Neuts (auto) Absolute Nucleated RBC Nucleated RBC % (auto) Smear Tech's Comments Anion Gap Estim Creat Clear Calc Estimated GFR POC Glucose 122 H Random Glucose Estimat Average Glucose Hemoglobin A1c % Calcium Troponin I High Sens 30.9 H 37.6 H C. difficile Tox B Gene 08/03/24 08/03/24 08/03/24 04:46 07:49 07:58 MCV 88.3 MCH 29.4 MCHC 33.3 RDW 14.6 Plt Count 278 MPV 9.8 Immature Gran % (Auto) 0.6 H Neut % (Auto) 83.1 H Lymph % (Auto) 7.3 L [place] % (Auto) 8.5 Eos % (Auto) 0.2 Baso % (Auto) 0.3 Lymph # (Auto) 1.6 [place] # (Auto) 1.9 H Eos # (Auto) 0.0 Baso # (Auto) 0.1 Abs Immat Gran (auto) 0.14 H Absolute Neuts (auto) 18.7 H Absolute Nucleated RBC 0.000 Nucleated RBC % (auto) 0.0 Smear Tech's Comments VERIFIED Anion Gap 11 L Estim Creat Clear Calc 83.9 Estimated GFR > 60 POC Glucose 96 102 Random Glucose 82 Estimat Average Glucose Hemoglobin A1c % Calcium 8.8 D Troponin I High Sens C. difficile Tox B Gene Microbiology Microbiology Results: Microbiology 08/01/24 22:02 Blood Culture - Preliminary Blood - Venous No growth after 24 hours. 08/01/24 21:51 Blood Culture - Preliminary Blood - Venous No growth after 24 hours. Assessment and Plan (1) Sepsis: Status: Acute Plan 74-year-old female with a past medical history significant for Mclean's esophagus, GERD, HLD, osteoarthritis, fibromyalgia, type 2 diabetes, HFpEF, who presented to the ED from an SNF via EMS due to altered mental status, fever, and shortness of breath. Acute hypoxic respiratory failure and severe sepsis secondary to aspiration pneumonia. Sepsis resolved chest CT suggestive of aspiration pneumonia with reactive lymph nodes COVID/flu/ RSV negative D-dimer negative patient given 30 cc/kg fluid bolus in ED due to hypotension with additional albumin, currently maintaining blood pressures ceftriaxone and doxycycline in ED, switched to Unasyn for aspiration pneumonia coverage seen by speech, cleared for diet blood cultures neg after 24 hrs Continue supplemental oxygen, wean as tolerated Toxic metabolic encephalopathy Patient awake alert, appears resolved at this time If recurs would consider reducing chronic pain medication Mclean's esophagus/GERD continue home meds HLD continue home meds Pre-type 2 diabetes, diet controlled no meds on med rec hba1c 6.7 diabetic diet chronic HFpEF, no acute exacerbation imaging not suggestive of pulmonary congestion no lower extremity edema hold Lasix for now, can resume in am if bp remains stable Hypothyroidism Continue Synthroid HLD Continue statin Chronic pain Continue baseline morphine, oxycodone, gabapentin full code, Presumed due to altered mental status VTE prophylaxis: Lovenox Quality Stroke Does the patient have a stroke diagnosis?: No VTE Prior VTE?: No VTE Risk Level:: Medical - moderate - high VTE Device Contraindication: Treatment Not Indicated VTE Drug Contraindication: N/A - Med Ordered
[2024-08-03 12:26] VITALS: BP 136/63; PULSE 74; RESP 20; TEMP 35.9; O2SAT 94
[2024-08-03 15:11] VITALS: BP 123/59; PULSE 73; RESP 18; TEMP 37.1; O2SAT 95
[2024-08-03 17:07] LABS: Glucose, Whole Blood 104 mg/dL (60-115)
[2024-08-03 19:36] VITALS: BP 140/60; PULSE 74; RESP 17; TEMP 37.4; O2SAT 94
[2024-08-03] MEDS: Nortriptyline HCl 25 MG CAPSULE 75 MG PO (20:45)
[2024-08-03] MEDS: Atorvastatin Calcium 40 MG TABLET PO (20:47)
[2024-08-03] MEDS: Famotidine 20 MG TABLET 40 MG PO (20:48)
[2024-08-03] MEDS: guaiFENesin LA 600 MG TAB.ER.12H PO (22:07)
[2024-08-03] MEDS: Albuterol Sulfate 90 MCG 8 GM INHALER 2 PUFF INHALE (22:19)
[2024-08-04] MEDS: Ampicillin Sodium/Sulbactam Na 3 GM in 0.9 % Sodium Chloride 100 ML IV ×4 (01:16→18:37)
[2024-08-04 02:36] VITALS: BP 126/56; PULSE 75; RESP 16; TEMP 36.8; O2SAT 92
[2024-08-04] MEDS: Enoxaparin Sodium 40 MG/0.4 ML SYRINGE SUBCUT (05:18)
[2024-08-04] MEDS: Omeprazole 20 MG CAPSULE.DR PO (05:20)
[2024-08-04] MEDS: Levothyroxine Sodium 125 MCG TABLET PO (05:20)
[2024-08-04] MEDS: Albuterol Sulfate 90 MCG 8 GM INHALER 2 PUFF INHALE ×4 (06:09→22:01)
[2024-08-04 06:57] LABS: Anion Gap 15 (12-20); Blood Urea Nitrogen 10 mg/dL (9-16); Calcium 8.8 mg/dL (8.4-10.2); Carbon Dioxide 28 mmol/L (22-29); Chloride 108 mmol/L (96-108); Creatinine Clr Calc Pharmacy 85.3; Estimated Glomerular Filt Rate > 60; Glucose Random 105 mg/dL (60-115); Potassium 3.7 mmol/L (3.3-5.1); Sodium 147 mmol/L (135-145)
[2024-08-04 06:58] LABS: Hematocrit 39.5 % (37.0-47.0); Hemoglobin 12.9 g/dl (12.0-16.0); Mean Corpuscular HGB Conc 32.7 g/dl (31.0-35.0); Mean Corpuscular Hemoglobin 29.5 pg (27.0-33.0); Mean Corpuscular Volume 90.2 fL (80.0-98.0); Mean Platelet Volume 9.8 fL (9.4-12.3); Platelet Count 262 X10*3/uL (160-400); Red Blood Count 4.38 X10*6/uL (4.20-5.50); Red Cell Distribution Width 14.5 % (11.0-16.0); White Blood Count 17.9 X10*3/uL (4.8-10.8)
[2024-08-04 07:26] LABS: Band Neutrophils Percent 1 % (3-5); Eosinophils Absolute Manual 0.2 X10*3/uL (0.0-0.4); Eosinophils Percent Manual 1 % (0-4); Lymphocytes Absolute Manual 1.4 X10*3/uL (1.2-4.9); Lymphocytes Percent Manual 8 % (20-40); Metamyelocytes Absolute 0.2 X10*3/uL; Metamyelocytes Percent 1 %; Monocytes Absolute Manual 1.3 X10*3/uL (0.1-1.2); Monocytes Percent Manual 7 % (2-11); Neutrophils Absolute Manual 14.9 X10*3/uL (2.0-8.3); Neutrophils Percent Manual 82 % (45-73)
[2024-08-04 07:29] LABS: Platelet Estimate NORMAL (NORMAL); Platelet Morphology Comment NORMAL; RBC Morphology NORMAL
[2024-08-04 08:00] VITALS: PULSE 83; RESP 18; TEMP 36.2; O2SAT 94
[2024-08-04] MEDS: 0.9 % Sodium Chloride Flush 3 ML SYRINGE IVFLUSH ×3 (09:01→19:29)
[2024-08-04] MEDS: busPIRone HCl 10 MG TABLET PO ×3 (09:01→19:25)
[2024-08-04] MEDS: Magnesium Oxide 400 MG TABLET PO ×3 (09:01→19:26)
[2024-08-04] MEDS: Multivitamin TABLET 1 TAB PO (09:03)
[2024-08-04] MEDS: Thiamine HCL 100 MG TABLET PO (09:03)
[2024-08-04] MEDS: Gabapentin 300 MG CAPSULE PO ×2 (09:03→19:24)
[2024-08-04] MEDS: Nicotine 14 MG PATCH.TD24 TRANSDERMA (09:03)
[2024-08-04] MEDS: Gabapentin 600 MG TABLET PO ×3 (09:03→19:26)
--- NOTE | 2024-08-04 09:21 | HO.PM.IMPN ---
Subjective Subjective Date of Service: 08/04/24 Review of Systems Follow up sepsis, pna feeling better but still on oxygen reports that she feels sob with eating Physical Exam Vital Signs: Vital Signs: Last Vital Signs Temp 97.1 F 08/04/24 08:00 Pulse 83 08/04/24 08:00 Resp 18 08/04/24 08:00 BP 126/56 L 08/04/24 02:36 Pulse Ox 94 08/04/24 08:00 O2 Del Method Oxymask 08/04/24 08:00 O2 Flow Rate 2.0 08/04/24 08:00 Oxygen Flow Rate 10 08/01/24 21:24 BMI result Body Mass Index 26.6 Appearing in no acute distress lung sounds are clear to auscultation heart regular rate rhythm, clear S1, S2 positive bowel sounds, abdomen is soft, nontender neuro patient is alert x3, no focal deficits Objective Data Active Medications Acetaminophen (Acetaminophen 325 Mg Tablet) 975 mg PO Q6H PRN PRN Reason: Pain, Mild 1-3,fever,headache Albuterol Sulfate (Albuterol Sulfate 90 Mcg 8 Gm Inhaler) 2 puff INHALE Q4H PRN PRN Reason: Shortness of Breath Last Admin: 08/04/24 06:09 Dose: 2 puff Documented By: ANGELES Atorvastatin Calcium (Atorvastatin Calcium 40 Mg Tablet) 40 mg PO BEDTIME [facility] Last Admin: 08/03/24 20:47 Dose: 40 mg Documented By: ANGELES Buspirone HCl (Buspirone Hcl 10 Mg Tablet) 10 mg PO TID [facility] Last Admin: 08/04/24 09:01 Dose: 10 mg Documented By: CASEY Calcium Carbonate (Calcium Carbonate 750 Mg Tab.Chew) 750 mg PO Q4H PRN PRN Reason: Heartburn Last Admin: 08/03/24 03:53 Dose: 750 mg Documented By: DALIA Cyclobenzaprine HCl (Cyclobenzaprine Hcl 5 Mg Tablet) 5 mg PO TID PRN PRN Reason: Muscle Pain Dextrose (Dextrose 50 % 25 Gm/50 Ml Syringe) 25 gm IVPUSH Q15M PRN; Protocol PRN Reason: per Hypoglycemia Standing Ord. Enoxaparin Sodium (Enoxaparin Sodium 40 Mg/0.4 Ml Syringe) 40 mg SUBCUT Q24H [facility] Last Admin: 08/04/24 05:18 Dose: 40 mg Documented By: ANGELES Famotidine (Famotidine 20 Mg Tablet) 40 mg PO BEDTIME [facility] Last Admin: 08/03/24 20:48 Dose: 40 mg Documented By: ANGELES Gabapentin (Gabapentin 300 Mg Capsule) 300 mg PO BID [facility] Last Admin: 08/04/24 09:03 Dose: 300 mg Documented By: CASEY Gabapentin (Gabapentin 600 Mg Tablet) 600 mg PO TID [facility] Last Admin: 08/04/24 09:03 Dose: 600 mg Documented By: CASEY Glucose (Glucose Gel 15 Gm Gel..Gram.) 15 gm PO Q15M PRN; Protocol PRN Reason: per Hypoglycemia Standing Ord. Guaifenesin (Guaifenesin La 600 Mg Tab.Er.12h) 600 mg PO Q12H PRN PRN Reason: Cough Last Admin: 08/03/24 22:07 Dose: 600 mg Documented By: ANGELES Ampicillin Sodium/Sulbactam (Sodium 3 gm/ Sodium Chloride) 100 mls @ 200 mls/hr IV Q6H [facility] Last Infusion: 08/04/24 06:48 Dose: Infused Documented By: ANGELES Levothyroxine Sodium (Levothyroxine Sodium 125 Mcg Tablet) 125 mcg PO DAILY@0600 [facility] Last Admin: 08/04/24 05:20 Dose: 125 mcg Documented By: ANGELES Loperamide HCl (Loperamide Hcl 2 Mg Capsule) 2 mg PO Q6H PRN PRN Reason: Diarrhea Magnesium Hydroxide (Milk Of Magnesia 30 Ml Oral.Susp) 30 ml PO DAILY PRN PRN Reason: Constipation Magnesium Oxide (Magnesium Oxide 400 Mg Tablet) 400 mg PO TID [facility] Last Admin: 08/04/24 09:01 Dose: 400 mg Documented By: CASEY Melatonin (Melatonin 3 Mg Tablet) 6 mg PO BEDTIME PRN PRN Reason: Insomnia Morphine Sulfate (Morphine Sulfate Immed Release 15 Mg Tablet) 15 mg PO QID [facility] Last Admin: 08/03/24 21:53 Dose: 15 mg Documented By: ANGELES Multivitamins/Vitamin C (Multivitamin Tablet) 1 tab PO DAILY [facility] Last Admin: 08/04/24 09:03 Dose: 1 tab Documented By: CASEY Nicotine (Nicotine 14 Mg Patch.Td24) 14 mg TRANSDERMA DAILY [facility] Last Admin: 08/04/24 09:03 Dose: 14 mg Documented By: CASEY Nitroglycerin (Nitroglycerin 0.4 Mg Tab.Subl) 0.4 mg SUBLINGUAL Q5MX3 PRN PRN Reason: Chest Pain Nortriptyline HCl (Nortriptyline Hcl 25 Mg Capsule) 75 mg PO BEDTIME [facility] [place] Last Admin: 08/03/24 20:45 Dose: 75 mg Documented By: ANGELES Omeprazole (Omeprazole 20 Mg Capsule.Dr) 20 mg PO DAILY@06 [facility] Last Admin: 08/04/24 05:20 Dose: 20 mg Documented By: ANGELES Ondansetron HCl (Ondansetron Hcl 4 Mg/2 Ml Vial) 4 mg IVPUSH Q8H PRN PRN Reason: Nausea and Vomiting Oxycodone HCl (Oxycodone Hcl Immed Release 5 Mg Tablet) 7.5 mg PO Q6H PRN PRN Reason: Breakthrough Pain Last Admin: 08/03/24 05:42 Dose: 7.5 mg Documented By: JOHANNA Sodium Chloride (0.9 % Sodium Chloride Flush 3 Ml Syringe) 3 ml IVFLUSH QSHIFT [facility] Last Admin: 08/04/24 09:01 Dose: 3 ml Documented By: CASEY Sodium Chloride (Sodium Chloride 0.65 % Nasal 44 Ml Sprbtl) 2 spray NOSTRIL-B Q4H PRN PRN Reason: allergies Thiamine HCl (Thiamine Hcl 100 Mg Tablet) 100 mg PO DAILY [facility] Last Admin: 08/04/24 09:03 Dose: 100 mg Documented By: CASEY Labs 08/04/24 06:03 08/04/24 06:03 Labs: Laboratory Results - last 24 hr 08/03/24 08/04/24 17:04 06:03 MCV 90.2 MCH 29.5 MCHC 32.7 RDW 14.5 Plt Count 262 MPV 9.8 Immature Gran % (Auto) Cancelled Neut % (Auto) Cancelled Lymph % (Auto) Cancelled [place] % (Auto) Cancelled Eos % (Auto) Cancelled Baso % (Auto) Cancelled Lymph # (Auto) Cancelled [place] # (Auto) Cancelled Eos # (Auto) Cancelled Baso # (Auto) Cancelled Abs Immat Gran (auto) Cancelled Absolute Neuts (auto) Cancelled Absolute Nucleated RBC 0.000 Nucleated RBC % (auto) 0.0 Neutrophils % (Manual) 82 H Band Neutrophils % 1 L Lymphocytes % (Manual) 8 L Monocytes % (Manual) 7 Eosinophils % (Manual) 1 Metamyelocytes % 1 Abs Neuts (Manual) 14.9 H Lymphocytes # (Manual) 1.4 Monocytes # (Manual) 1.3 H Eosinophils # (Manual) 0.2 Metamyelocytes # 0.2 Platelet Estimate NORMAL Plt Morphology Comment NORMAL RBC Morphology NORMAL Anion Gap 15 Estim Creat Clear Calc 85.3 Estimated GFR > 60 POC Glucose 104 Random Glucose 105 Calcium 8.8 Microbiology Microbiology Results: Microbiology 08/01/24 22:02 Blood Culture - Preliminary Blood - Venous No growth after 48 hours. 08/01/24 21:51 Blood Culture - Preliminary Blood - Venous No growth after 48 hours. Assessment and Plan (1) Sepsis: Status: Acute Plan 74-year-old female with a past medical history significant for Mclean's esophagus, GERD, HLD, osteoarthritis, fibromyalgia, type 2 diabetes, HFpEF, who presented to the ED from an SNF via EMS due to altered mental status, fever, and shortness of breath. Acute hypoxic respiratory failure and severe sepsis secondary to aspiration pneumonia. Sepsis resolved chest CT suggestive of aspiration pneumonia with reactive lymph nodes COVID/flu/ RSV negative D-dimer negative s/p 30 cc/kg fluid bolus in ED due to hypotension with additional albumin ceftriaxone and doxycycline in ED, switched to Unasyn for aspiration pneumonia coverage seen by speech, cleared for diet blood cultures neg after 24 hrs Continue supplemental oxygen, wean as tolerated repeat CXR d/t continued sob Toxic metabolic encephalopathy. Resolved Patient awake alert Mclean's esophagus/GERD continue home meds HLD continue home meds Pre-type 2 diabetes, diet controlled no meds on med rec hba1c 6.7 diabetic diet Chronic HFpEF, no acute exacerbation imaging not suggestive of pulmonary congestion no lower extremity edema Continue Lasix Hypothyroidism Continue Synthroid HLD Continue statin Chronic pain Continue baseline morphine, oxycodone, gabapentin full code, Presumed due to altered mental status VTE prophylaxis: Lovenox Quality Stroke Does the patient have a stroke diagnosis?: No VTE Prior VTE?: No VTE Risk Level:: Medical - moderate - high VTE Device Contraindication: Treatment Not Indicated VTE Drug Contraindication: N/A - Med Ordered
[2024-08-04] MEDS: Loperamide HCl 2 MG CAPSULE PO (10:13)
[2024-08-04 10:16] VITALS: BP 147/67; PULSE 73
[2024-08-04] MEDS: Morphine Sulfate Immed Release 15 MG TABLET PO ×4 (11:15→22:02)
[2024-08-04] MEDS: guaiFENesin LA 600 MG TAB.ER.12H PO (14:32)
[2024-08-04 15:46] VITALS: BP 118/57; PULSE 67; RESP 18; TEMP 36.2; O2SAT 94
[2024-08-04] MEDS: Famotidine 20 MG TABLET 40 MG PO (19:24)
[2024-08-04] MEDS: Nortriptyline HCl 25 MG CAPSULE 75 MG PO (19:24)
[2024-08-04] MEDS: Atorvastatin Calcium 40 MG TABLET PO (19:25)
[2024-08-04 20:00] VITALS: BP 153/65; PULSE 74; RESP 18; TEMP 36.9; O2SAT 94
[2024-08-05] VITALS (9 sets, daily range): BP systolic 139–172; BP diastolic 62–75; PULSE 70–80; RESP 15–18; TEMP 36.4–37.1; O2SAT 89–96
[2024-08-05] MEDS: Enoxaparin Sodium 40 MG/0.4 ML SYRINGE SUBCUT (02:38)
[2024-08-05] MEDS: Ampicillin Sodium/Sulbactam Na 3 GM in 0.9 % Sodium Chloride 100 ML IV ×4 (02:38→18:50)
[2024-08-05] MEDS: Omeprazole 20 MG CAPSULE.DR PO (04:54)
[2024-08-05] MEDS: Morphine Sulfate Immed Release 15 MG TABLET PO ×4 (04:54→23:09)
[2024-08-05] MEDS: Levothyroxine Sodium 125 MCG TABLET PO (04:54)
[2024-08-05] MEDS: Albuterol Sulfate 90 MCG 8 GM INHALER 2 PUFF INHALE ×2 (04:57→09:49)
--- NOTE | 2024-08-05 05:45 | MHC.PIE ---
p; pt c/o sob prn ventolin puff given with pt requesting upd for sob. i; dr [place] notified. new order duoneb prn q4 e; respiratory in room, pt asleep in bed no sob noted, will cont to monitor
[2024-08-05] MEDS: oxyCODONE HCl Immed Release 5 MG TABLET 7.5 MG PO (08:30)
[2024-08-05] MEDS: Nicotine 14 MG PATCH.TD24 TRANSDERMA (08:30)
[2024-08-05] MEDS: Gabapentin 300 MG CAPSULE PO ×2 (08:31→20:43)
[2024-08-05] MEDS: Magnesium Oxide 400 MG TABLET PO ×3 (08:31→20:44)
[2024-08-05] MEDS: Thiamine HCL 100 MG TABLET PO (08:31)
[2024-08-05] MEDS: Gabapentin 600 MG TABLET PO ×3 (08:31→20:44)
[2024-08-05] MEDS: busPIRone HCl 10 MG TABLET PO ×3 (08:31→20:44)
[2024-08-05] MEDS: Multivitamin TABLET 1 TAB PO (08:31)
[2024-08-05] MEDS: 0.9 % Sodium Chloride Flush 3 ML SYRINGE IVFLUSH ×3 (08:32→20:45)
--- NOTE | 2024-08-05 08:42 | P.PNIM_ITS ---
Subjective Subjective Date of Service: 08/05/24 Review of Systems Follow up sepsis, pna feeling better but still on oxygen reports that she feels sob with eating Physical Exam 2 Vital Signs: Vital Signs: Last Vital Signs Temp 97.5 F 08/05/24 07:51 Pulse 71 08/05/24 07:51 Resp 17 08/05/24 07:51 BP 162/72 H 08/05/24 07:51 Pulse Ox 96 08/05/24 07:51 O2 Del Method Nasal Cannula 08/05/24 07:51 O2 Flow Rate 2 08/05/24 07:51 Oxygen Flow Rate 10 08/01/24 21:24 BMI result Body Mass Index 26.6 Appearing in no acute distress lung sounds exp wheezing heart regular rate rhythm, clear S1, S2 positive bowel sounds, abdomen is soft, nontender neuro patient is alert x3, no focal deficits Objective Data Active Medications Acetaminophen (Acetaminophen 325 Mg Tablet) 975 mg PO Q6H PRN PRN Reason: Pain, Mild 1-3,fever,headache Albuterol Sulfate (Albuterol Sulfate 90 Mcg 8 Gm Inhaler) 2 puff INHALE Q4H PRN PRN Reason: Shortness of Breath Last Admin: 08/05/24 04:57 Dose: 2 puff Documented By: LUISA Albuterol Sulfate (Albuterol Sulfate (0.083%) 2.5 Mg/3 Ml Vial.Neb) 2.5 mg INHALE RQ4H WHILE AWAKE [facility] Albuterol/Ipratropium (Albuterol/Iprat 2.5/0.5mg 3 Ml Ampul.Neb) 3 ml INHALE RQ4H WHILE AWAKE PRN PRN Reason: Shortness of Breath Atorvastatin Calcium (Atorvastatin Calcium 40 Mg Tablet) 40 mg PO BEDTIME [facility] Last Admin: 08/04/24 19:25 Dose: 40 mg Documented By: LUISA Buspirone HCl (Buspirone Hcl 10 Mg Tablet) 10 mg PO TID [facility] Last Admin: 08/05/24 08:31 Dose: 10 mg Documented By: NIKOLAS Calcium Carbonate (Calcium Carbonate 750 Mg Tab.Chew) 750 mg PO Q4H PRN PRN Reason: Heartburn Last Admin: 08/03/24 03:53 Dose: 750 mg Documented By: DALIA Cyclobenzaprine HCl (Cyclobenzaprine Hcl 5 Mg Tablet) 5 mg PO TID PRN PRN Reason: Muscle Pain Dextrose (Dextrose 50 % 25 Gm/50 Ml Syringe) 25 gm IVPUSH Q15M PRN; Protocol PRN Reason: per Hypoglycemia Standing Ord. Enoxaparin Sodium (Enoxaparin Sodium 40 Mg/0.4 Ml Syringe) 40 mg SUBCUT Q24H [facility] Last Admin: 08/05/24 02:38 Dose: 40 mg Documented By: LUISA Famotidine (Famotidine 20 Mg Tablet) 40 mg PO BEDTIME [facility] Last Admin: 08/04/24 19:24 Dose: 40 mg Documented By: LUISA Gabapentin (Gabapentin 300 Mg Capsule) 300 mg PO BID [facility] Last Admin: 08/05/24 08:31 Dose: 300 mg Documented By: NIKOLAS Gabapentin (Gabapentin 600 Mg Tablet) 600 mg PO TID [facility] Last Admin: 08/05/24 08:31 Dose: 600 mg Documented By: NIKOLAS Glucose (Glucose Gel 15 Gm Gel..Gram.) 15 gm PO Q15M PRN; Protocol PRN Reason: per Hypoglycemia Standing Ord. Guaifenesin (Guaifenesin La 600 Mg Tab.Er.12h) 600 mg PO Q12H PRN PRN Reason: Cough Last Admin: 08/04/24 14:32 Dose: 600 mg Documented By: CASEY Ampicillin Sodium/Sulbactam (Sodium 3 gm/ Sodium Chloride) 100 mls @ 200 mls/hr IV Q6H [facility] Last Admin: 08/05/24 08:30 Dose: 200 mls/hr Documented By: NIKOLAS Levothyroxine Sodium (Levothyroxine Sodium 125 Mcg Tablet) 125 mcg PO DAILY@0600 [facility] Last Admin: 08/05/24 04:54 Dose: 125 mcg Documented By: LUISA Loperamide HCl (Loperamide Hcl 2 Mg Capsule) 2 mg PO Q6H PRN PRN Reason: Diarrhea Last Admin: 08/04/24 10:13 Dose: 2 mg Documented By: CASEY Magnesium Hydroxide (Milk Of Magnesia 30 Ml Oral.Susp) 30 ml PO DAILY PRN PRN Reason: Constipation Magnesium Oxide (Magnesium Oxide 400 Mg Tablet) 400 mg PO TID [facility] Last Admin: 08/05/24 08:31 Dose: 400 mg Documented By: NIKOLAS Melatonin (Melatonin 3 Mg Tablet) 6 mg PO BEDTIME PRN PRN Reason: Insomnia Morphine Sulfate (Morphine Sulfate Immed Release 15 Mg Tablet) 15 mg PO QID@0400,1100,1700,2300 [facility] Last Admin: 08/05/24 04:54 Dose: 15 mg Documented By: LUISA Multivitamins/Vitamin C (Multivitamin Tablet) 1 tab PO DAILY [facility] Last Admin: 08/05/24 08:31 Dose: 1 tab Documented By: NIKOLAS Nicotine (Nicotine 14 Mg Patch.Td24) 14 mg TRANSDERMA DAILY [facility] Last Admin: 08/05/24 08:30 Dose: 14 mg Documented By: NIKOLAS Nitroglycerin (Nitroglycerin 0.4 Mg Tab.Subl) 0.4 mg SUBLINGUAL Q5MX3 PRN PRN Reason: Chest Pain Nortriptyline HCl (Nortriptyline Hcl 25 Mg Capsule) 75 mg PO BEDTIME [facility] Last Admin: 08/04/24 19:24 Dose: 75 mg Documented By: LUISA Omeprazole (Omeprazole 20 Mg Capsule.Dr) 20 mg PO DAILY@0630 [facility] Last Admin: 08/05/24 04:54 Dose: 20 mg Documented By: LUISA Ondansetron HCl (Ondansetron Hcl 4 Mg/2 Ml Vial) 4 mg IVPUSH Q8H PRN PRN Reason: Nausea and Vomiting Oxycodone HCl (Oxycodone Hcl Immed Release 5 Mg Tablet) 7.5 mg PO Q6H PRN PRN Reason: Breakthrough Pain Last Admin: 08/05/24 08:30 Dose: 7.5 mg Documented By: NIKOLAS Sodium Chloride (0.9 % Sodium Chloride Flush 3 Ml Syringe) 3 ml IVFLUSH QSHIFT [facility] Last Admin: 08/05/24 08:32 Dose: 3 ml Documented By: NIKOLAS Sodium Chloride (Sodium Chloride 0.65 % Nasal 44 Ml Sprbtl) 2 spray NOSTRIL-B Q4H PRN PRN Reason: allergies Thiamine HCl (Thiamine Hcl 100 Mg Tablet) 100 mg PO DAILY [facility] Last Admin: 08/05/24 08:31 Dose: 100 mg Documented By: NIKOLAS Labs 08/04/24 06:03 08/04/24 06:03 Assessment and Plan (1) Sepsis: Status: Acute Plan 74-year-old female with a past medical history significant for Mclean's esophagus, GERD, HLD, osteoarthritis, fibromyalgia, type 2 diabetes, HFpEF, who presented to the ED from an SNF via EMS due to altered mental status, fever, and shortness of breath. COPD exacerbation Start Scheduled albuterol Solumedrol BID Continue supplemental oxygen, wean as tolerated Acute hypoxic respiratory failure and severe sepsis secondary to aspiration pneumonia. Sepsis resolved chest CT suggestive of aspiration pneumonia with reactive lymph nodes COVID/flu/ RSV negative D-dimer negative ceftriaxone and doxycycline in ED, switched to Unasyn for aspiration pneumonia coverage seen by speech, cleared for diet blood cultures neg Continue supplemental oxygen, wean as tolerated Toxic metabolic encephalopathy. Resolved Patient awake alert Mclean's esophagus/GERD continue home meds HLD continue home meds Pre-type 2 diabetes, diet controlled no meds on med rec hba1c 6.7 diabetic diet Chronic HFpEF, no acute exacerbation imaging not suggestive of pulmonary congestion no lower extremity edema Continue Lasix Hypothyroidism Continue Synthroid HLD Continue statin Chronic pain Continue baseline morphine, oxycodone, gabapentin full code, Presumed due to altered mental status VTE prophylaxis: Lovenox Quality Stroke Does the patient have a stroke diagnosis?: No VTE Prior VTE?: No VTE Risk Level:: Medical - moderate - high VTE Device Contraindication: Treatment Not Indicated VTE Drug Contraindication: N/A - Med Ordered
[2024-08-05 09:03] LABS: Glucose, Whole Blood 117 mg/dL (60-115)
[2024-08-05 09:04] LABS: Glucose, Whole Blood 136 mg/dL (60-115)
--- NOTE | 2024-08-05 09:25 | MHC.CM.PN ---
EMR REVIEWED, PER HOSPITALIST PT NOT YET READY FOR DC D/T WHEEZING AND WILL NEED IV STEROIDS, PLAN FOR PT TO RETURN TO [facility] WHEN MEDICALLY CLEARED, CM WILL CONTINUE TO FOLLOW DC NEEDS.
[2024-08-05 09:44] LABS: Anion Gap 14 (12-20); Blood Urea Nitrogen 10 mg/dL (9-16); Calcium 9.1 mg/dL (8.4-10.2); Carbon Dioxide 27 mmol/L (22-29); Chloride 106 mmol/L (96-108); Creatinine Clr Calc Pharmacy 91.4; Estimated Glomerular Filt Rate > 60; Glucose Random 110 mg/dL (60-115); Potassium 3.5 mmol/L (3.3-5.1); Sodium 143 mmol/L (135-145)
[2024-08-05 09:49] LABS: B Type Natriuretic Peptide 627 pg/mL (<100)
[2024-08-05] MEDS: methylPREDNISolone Sod Succ 40 MG/ML VIAL IVPUSH ×2 (09:52→20:45)
[2024-08-05] MEDS: Albuterol Sulfate (0.083%) 2.5 MG/3 ML VIAL.NEB INHALE ×3 (11:47→20:13)
--- NOTE | 2024-08-05 16:02 | MHC.SLORD ---
Speech Language Pathology Order Status: Pt not seen today for x1 followup. Pt on regular diet with thin liquids.
[2024-08-05] MEDS: guaiFENesin LA 600 MG TAB.ER.12H PO (19:04)
[2024-08-05] MEDS: Nortriptyline HCl 25 MG CAPSULE 75 MG PO (20:43)
[2024-08-05] MEDS: Famotidine 20 MG TABLET 40 MG PO (20:44)
[2024-08-05] MEDS: Atorvastatin Calcium 40 MG TABLET PO (20:44)
[2024-08-06] VITALS (8 sets, daily range): BP systolic 161–188; BP diastolic 72–79; PULSE 69–79; RESP 12–22; TEMP 36.4–36.9; O2SAT 91–93
[2024-08-06] MEDS: Ampicillin Sodium/Sulbactam Na 3 GM in 0.9 % Sodium Chloride 100 ML IV ×4 (01:29→18:34)
[2024-08-06] MEDS: Morphine Sulfate Immed Release 15 MG TABLET PO ×4 (03:47→23:09)
[2024-08-06] MEDS: Enoxaparin Sodium 40 MG/0.4 ML SYRINGE SUBCUT (03:48)
[2024-08-06] MEDS: Levothyroxine Sodium 125 MCG TABLET PO (06:01)
[2024-08-06] MEDS: Omeprazole 20 MG CAPSULE.DR PO (06:01)
--- NOTE | 2024-08-06 07:00 | CA_ITS ---
Transthoracic Echocardiogram Patient (Last, First, Middle): Shanique Sol, Gender: Female Date of : 1950 Age: 74 Procedure Date: 08/06/2024 Procedure Type: Transthoracic Echocardiogram [place] [facility] [place] Height: 170.18 cm Weight: 76.66 kg BSA: 1.88 m2 Heart Rate: bpm BP: 188 / 74 mmHg Stamping Press Operator: YARA Referring MD: Adalgisa Fofana NP Manager Of Internal Audit: Wilbur Cristina MD Symptoms: chf Study Quality: Adequate w Contrast ECG Rhythm: Sinus Conclusions: - 1. Hyperdynamic LV ejection fraction greater than 70% with grade 2 diastolic dysfunction 2. Cardiac valvular Dopplers within normal limits 3. Normal RV systolic pressure Findings Procedure Information Contrast agent, definity, is being given per protocol without apparent complications. Left Ventricle Normal left ventricular cavity size. There is normal left ventricular wall thickness. The left ventricular systolic function is hyperdynamic. The visually estimated ejection fraction is >70%. Spectral Doppler is indicative of a pseudonormal filling pattern. E/E prime ratio is >15, consistent with elevated filling pressures. Evidence suggests grade II (moderate) diastolic dysfunction. Right Ventricle The right ventricle was not well visualized. There is normal right ventricular systolic function. Atria The left atrium is mildly dilated. Interatrial shunt cannot be excluded. The right atrium was not well visualized. Aortic Valve The aortic valve was not well visualized. There is no aortic valve stenosis. There is no aortic valve regurgitation. Mitral Valve The mitral valve was not well visualized. There is trace mitral valve regurgitation. There is no mitral valve stenosis. Pulmonic Valve The pulmonic valve was not well visualized. Tricuspid Valve Likely normal tricuspid valve structure and function. There is mild tricuspid valve regurgitation. The right ventricular systolic pressure is 32 mmHg. Normal right atrial pressure. There is no evidence of pulmonary hypertension. Great Vessels The aorta was not well visualized. The pulmonary artery was not well visualized. Venous The inferior vena cava is normal in size and collapses greater than 50% with inspiration. Pericardium/Pleural The pericardium was not well visualized. Prior Study Comparison No prior study available for comparison. Measurements 2D Linear Measurements IVSd: 0.92 0.6-0.9/0.6-1.0 cm LVIDd: 3.61 3.9-5.3/4.2-5.9 cm LVIDd Index: 1.92 2.4-3.2/2.2-3.1 cm/m2 LVIDs: 2.01 2.0-3.6 cm LVPWd: 1.03 0.7-1.1 cm Ao Root: 2.80 2.1-3.5 cm LA Diam: 4.00 2.7-3.8/3.0-4.0 cm LAIDs Index: 2.13 1.5-2.3 cm/m2 LV Mass: 194.17 67-162/88-224 g LV Mass Index: 103.28 43-95/49-115 g/m2 LVOT Diam: 2.00 3.0+(-)1.3 cm 2D Systolic Function EF 4C: 72.40 >55% EF 2C: 72.50 >55% EF BiP: 73.30 >55% Mitral Valve MV VTI: 0.54 MV Pk Hiram: 1.76 MV Mn Hiram: 1.04 MV Pk Grad: 12.00 MV Mn Grad: 5.00 MV Pk E: 1.48 MV PK A: 1.20 MV Decel Time: 226.00 E/A: 1.20 E'Lateral: 5.77 E'Medial: 5.98 E/E' Med: 24.70 E/E' Lat: 25.60 PHT: 66.00 MVA PHT: 3.33 MVA Continuity: 1.32 Decel Yates: 6.55 Aortic Valve AoV Pk Hiram: 1.42 AoV Mn Hiram: 0.90 AoV VTI: 0.32 AoV Pk Grad: 8.00 Aov Mn Grad: 4.00 KATALINA Cont.VTI: 2.27 LVOT LVOT Pk Hiram: 0.93 LVOT Mn Hiram: 0.62 LVOT VTI: 0.23 LVOT Pk Grad: 3.00 LVOT Mn Grad: 2.00 LVOT Diam: 2.00 LVOT Area: 3.14 Diastolic Function MV Pk E: 1.48 MV Pk A: 1.20 E/A: 1.20 E'Medial: 5.98 E/E' Med: 24.70 E' Laterial: 5.77 E/E' Lat: 25.60 Right Ventricle TAPSE (mm): 27.00 TVS' Hiram: 15.00 Tricuspid Valve TR Pk Hiram: 2.71 TR Pk Grad: 29.00 RA Press: 3.00 RVSP: 32.00 Great Vessels Aorta Ao Root-2D: 2.80 2.0-3.7 cm Pulmonary Valve PV Pk Hiram: 1.06 Peak PV Grad: 4.00 Updated in Other Vendor System with Status of Final Wilbur Cristina MD electronically signed on 08/06/2024 5:46:54 PM with status of Final
[2024-08-06] MEDS: Albuterol Sulfate (0.083%) 2.5 MG/3 ML VIAL.NEB INHALE ×2 (07:53→20:07)
--- NOTE | 2024-08-06 07:53 | HO.PM.IMPN ---
Subjective Subjective Date of Service: 08/06/24 Review of Systems Follow up sepsis, pna feeling better but still on oxygen reports that she feels sob with eating Physical Exam Vital Signs: Vital Signs: Last Vital Signs Temp 98.5 F 08/06/24 07:12 Pulse 70 08/06/24 07:12 Resp 12 08/06/24 07:12 BP 188/74 H 08/06/24 07:12 Pulse Ox 93 08/06/24 07:12 O2 Del Method Room Air 08/06/24 07:12 O2 Flow Rate 2 08/05/24 15:15 Oxygen Flow Rate 10 08/01/24 21:24 BMI result Body Mass Index 26.6 Appearing in no acute distress lung sounds are clear to auscultation heart regular rate rhythm, clear S1, S2 positive bowel sounds, abdomen is soft, nontender neuro patient is alert x3, no focal deficits Objective Data Active Medications Acetaminophen (Acetaminophen 325 Mg Tablet) 975 mg PO Q6H PRN PRN Reason: Pain, Mild 1-3,fever,headache Albuterol Sulfate (Albuterol Sulfate 90 Mcg 8 Gm Inhaler) 2 puff INHALE Q4H PRN PRN Reason: Shortness of Breath Last Admin: 08/05/24 09:49 Dose: 2 puff Documented By: TOBIAS Albuterol Sulfate (Albuterol Sulfate (0.083%) 2.5 Mg/3 Ml Vial.Neb) 2.5 mg INHALE RQ4H WHILE AWAKE [facility] Last Admin: 08/05/24 20:13 Dose: 2.5 mg Documented By: WILFREDO Albuterol/Ipratropium (Albuterol/Iprat 2.5/0.5mg 3 Ml Ampul.Neb) 3 ml INHALE RQ4H WHILE AWAKE PRN PRN Reason: Shortness of Breath Atorvastatin Calcium (Atorvastatin Calcium 40 Mg Tablet) 40 mg PO BEDTIME [facility] Last Admin: 08/05/24 20:44 Dose: 40 mg Documented By: ERICKSON Buspirone HCl (Buspirone Hcl 10 Mg Tablet) 10 mg PO TID [facility] Last Admin: 08/05/24 20:44 Dose: 10 mg Documented By: ERICKSON Calcium Carbonate (Calcium Carbonate 750 Mg Tab.Chew) 750 mg PO Q4H PRN PRN Reason: Heartburn Last Admin: 08/03/24 03:53 Dose: 750 mg Documented By: DALIA Cyclobenzaprine HCl (Cyclobenzaprine Hcl 5 Mg Tablet) 5 mg PO TID PRN PRN Reason: Muscle Pain Dextrose (Dextrose 50 % 25 Gm/50 Ml Syringe) 25 gm IVPUSH Q15M PRN; Protocol PRN Reason: per Hypoglycemia Standing Ord. Enoxaparin Sodium (Enoxaparin Sodium 40 Mg/0.4 Ml Syringe) 40 mg SUBCUT Q24H [facility] Last Admin: 08/06/24 03:48 Dose: 40 mg Documented By: ERICKSON Famotidine (Famotidine 20 Mg Tablet) 40 mg PO BEDTIME [facility] Last Admin: 08/05/24 20:44 Dose: 40 mg Documented By: ERICKSON Furosemide (Furosemide 40 Mg/4 Ml Vial) 40 mg IVPUSH BID@0900,1800 [facility]; Protocol Gabapentin (Gabapentin 300 Mg Capsule) 300 mg PO BID [facility] Last Admin: 08/05/24 20:43 Dose: 300 mg Documented By: ERICKSON Gabapentin (Gabapentin 600 Mg Tablet) 600 mg PO TID [facility] Last Admin: 08/05/24 20:44 Dose: 600 mg Documented By: ERICKSON Glucose (Glucose Gel 15 Gm Gel..Gram.) 15 gm PO Q15M PRN; Protocol PRN Reason: per Hypoglycemia Standing Ord. Guaifenesin (Guaifenesin La 600 Mg Tab.Er.12h) 600 mg PO Q12H PRN PRN Reason: Cough Last Admin: 08/05/24 19:04 Dose: 600 mg Documented By: TOBIAS Ampicillin Sodium/Sulbactam (Sodium 3 gm/ Sodium Chloride) 100 mls @ 200 mls/hr IV Q6H [facility] Last Infusion: 08/06/24 07:49 Dose: Infused Documented By: TOBIAS Levothyroxine Sodium (Levothyroxine Sodium 125 Mcg Tablet) 125 mcg PO DAILY@0600 [facility] Last Admin: 08/06/24 06:01 Dose: 125 mcg Documented By: ERICKSON Lisinopril (Lisinopril 5 Mg Tablet) 5 mg PO DAILY [facility]; Protocol Loperamide HCl (Loperamide Hcl 2 Mg Capsule) 2 mg PO Q6H PRN PRN Reason: Diarrhea Last Admin: 08/04/24 10:13 Dose: 2 mg Documented By: CASEY Magnesium Hydroxide (Milk Of Magnesia 30 Ml Oral.Susp) 30 ml PO DAILY PRN PRN Reason: Constipation Magnesium Oxide (Magnesium Oxide 400 Mg Tablet) 400 mg PO TID [facility] Last Admin: 08/05/24 20:44 Dose: 400 mg Documented By: ERICKSON Melatonin (Melatonin 3 Mg Tablet) 6 mg PO BEDTIME PRN PRN Reason: Insomnia Methylprednisolone Sodium Succinate (Methylprednisolone Sod Succ 40 Mg/Ml Vial) 40 mg IVPUSH Q12H [facility] Last Admin: 08/05/24 20:45 Dose: 40 mg Documented By: ERICKSON Morphine Sulfate (Morphine Sulfate Immed Release 15 Mg Tablet) 15 mg PO QID@0400,1100,1700,2300 [facility] Last Admin: 08/06/24 03:47 Dose: 15 mg Documented By: ERICKSON Multivitamins/Vitamin C (Multivitamin Tablet) 1 tab PO DAILY [facility] Last Admin: 08/05/24 08:31 Dose: 1 tab Documented By: NIKOLAS Nicotine (Nicotine 14 Mg Patch.Td24) 14 mg TRANSDERMA DAILY [facility] Last Admin: 08/05/24 08:30 Dose: 14 mg Documented By: NIKOLAS Nitroglycerin (Nitroglycerin 0.4 Mg Tab.Subl) 0.4 mg SUBLINGUAL Q5MX3 PRN PRN Reason: Chest Pain Nortriptyline HCl (Nortriptyline Hcl 25 Mg Capsule) 75 mg PO BEDTIME [facility] Last Admin: 08/05/24 20:43 Dose: 75 mg Documented By: ERICKSON Omeprazole (Omeprazole 20 Mg Capsule.) 20 mg PO DAILY@0630 [facility] Last Admin: 08/06/24 06:01 Dose: 20 mg Documented By: ERICKSON Ondansetron HCl (Ondansetron Hcl 4 Mg/2 Ml Vial) 4 mg IVPUSH Q8H PRN PRN Reason: Nausea and Vomiting Oxycodone HCl (Oxycodone Hcl Immed Release 5 Mg Tablet) 7.5 mg PO Q6H PRN PRN Reason: Breakthrough Pain Last Admin: 08/05/24 08:30 Dose: 7.5 mg Documented By: NIKOLAS Sodium Chloride (0.9 % Sodium Chloride Flush 3 Ml Syringe) 3 ml IVFLUSH QSHIFT [facility] Last Admin: 08/05/24 20:45 Dose: 3 ml Documented By: ERICKSON Sodium Chloride (Sodium Chloride 0.65 % Nasal 44 Ml Sprbtl) 2 spray NOSTRIL-B Q4H PRN PRN Reason: allergies Thiamine HCl (Thiamine Hcl 100 Mg Tablet) 100 mg PO DAILY [facility] Last Admin: 08/05/24 08:31 Dose: 100 mg Documented By: NIKOLAS Labs 08/04/24 06:03 08/05/24 08:27 Labs: Laboratory Results - last 24 hr 08/03/24 08/03/24 08/05/24 11:08 11:12 08:27 Anion Gap 14 Estim Creat Clear Calc 91.4 Estimated GFR > 60 POC Glucose 136 H 117 H Random Glucose 110 Calcium 9.1 B-Natriuretic Peptide 627 H Assessment and Plan (1) Sepsis: Status: Acute Plan 74-year-old female with a past medical history significant for Mclean's esophagus, GERD, HLD, osteoarthritis, fibromyalgia, type 2 diabetes, HFpEF, who presented to the ED from an SNF via EMS due to altered mental status, fever, and shortness of breath. Possible acute on chronic CHF, unspecified bnp 627 Start IV lasix 40 BID Check echo check CTA to also r/o PE and re-evaluate PNA COPD exacerbation Start Scheduled albuterol Solumedrol BID Continue supplemental oxygen, wean as tolerated Acute hypoxic respiratory failure and severe sepsis secondary to aspiration pneumonia. Sepsis resolved chest CT suggestive of aspiration pneumonia with reactive lymph nodes COVID/flu/ RSV negative D-dimer negative ceftriaxone and doxycycline in ED, switched to Unasyn for aspiration pneumonia coverage seen by speech, cleared for diet blood cultures neg Continue supplemental oxygen, wean as tolerated Toxic metabolic encephalopathy. Resolved Patient awake alert Mclean's esophagus/GERD continue home meds HLD continue home meds Pre-type 2 diabetes, diet controlled no meds on med rec hba1c 6.7 diabetic diet Hypothyroidism Continue Synthroid HLD Continue statin Chronic pain Continue baseline morphine, oxycodone, gabapentin full code VTE prophylaxis: Lovenox Quality Stroke Does the patient have a stroke diagnosis?: No VTE Prior VTE?: No VTE Risk Level:: Medical - moderate - high VTE Device Contraindication: Treatment Not Indicated VTE Drug Contraindication: N/A - Med Ordered
[2024-08-06 08:33] LABS: Anion Gap 13 (12-20); Blood Urea Nitrogen 10 mg/dL (9-16); Calcium 9.3 mg/dL (8.4-10.2); Carbon Dioxide 26 mmol/L (22-29); Chloride 109 mmol/L (96-108); Creatinine Clr Calc Pharmacy 94.8; Estimated Glomerular Filt Rate > 60; Glucose Random 194 mg/dL (60-115); Potassium 3.6 mmol/L (3.3-5.1); Sodium 144 mmol/L (135-145)
[2024-08-06 08:40] LABS: B Type Natriuretic Peptide 761 pg/mL (<100)
[2024-08-06] MEDS: Nicotine 14 MG PATCH.TD24 TRANSDERMA (09:19)
[2024-08-06] MEDS: 0.9 % Sodium Chloride Flush 3 ML SYRINGE IVFLUSH ×2 (09:19→17:09)
[2024-08-06] MEDS: Gabapentin 600 MG TABLET PO ×3 (09:20→22:54)
[2024-08-06] MEDS: methylPREDNISolone Sod Succ 40 MG/ML VIAL IVPUSH ×2 (09:20→22:54)
[2024-08-06] MEDS: Gabapentin 300 MG CAPSULE PO ×2 (09:20→22:57)
[2024-08-06] MEDS: Furosemide 40 MG/4 ML VIAL IVPUSH ×2 (09:20→18:35)
[2024-08-06] MEDS: Magnesium Oxide 400 MG TABLET PO ×3 (09:21→22:56)
[2024-08-06] MEDS: lisinopriL 5 MG TABLET PO (09:21)
[2024-08-06] MEDS: Multivitamin TABLET 1 TAB PO (09:21)
[2024-08-06] MEDS: busPIRone HCl 10 MG TABLET PO ×3 (09:21→22:57)
[2024-08-06] MEDS: Thiamine HCL 100 MG TABLET PO (09:21)
--- NOTE | 2024-08-06 11:21 | P.CDIM_ITS ---
PROVIDER RESPONSE TEXT: To clarify, the appropriate diagnosis supported by the clinical indicators: Hypernatremia: resolved QUERY TEXT: PHYSICIAN'S DOCUMENTATION REQUEST Date of Query: 08/05/2024 11:03 AM EDT Patient Name: Shanique Sol Admit Date: 08/02/2024 Dear Adalgisa Fofana DIVISION ORDER TECHNICIAN, A review of the medical record indicates additional documentation may be needed. Please review below and update the documentation accordingly. Clinical Indicators: LABS: Sodium 147 H 143 fluids Based on the above, is there a diagnosis that correlates with these findings: Hypernatremia resolved, possible, probable etc. Labs indicate a diagnosis of (please specify) Other (explain) Clinically unable to determine (explain) Thank you, Cathy Yen, CCS, CDIS Use of terms such as suspected, likely, concern for, or probable (associated with a specific diagnosi s that is being evaluated, monitored, or treated as if it exists) are acceptable and can be coded in the inpatient se tting, when documented at the time of discharge. Please use your independent medical judgment in providing your response. THIS QUERY IS PART OF THE PERMANENT MEDICAL RECORD
[2024-08-06] MEDS: iohexoL 350 MG/ML 100 ML INFUS..BTL IV (11:50)
[2024-08-06] MEDS: hydrALAZINE HCl 20 MG/ML VIAL 5 MG IVPUSH (13:28)
--- NOTE | 2024-08-06 14:15 | MHC.SL.SWA ---
Dysphasia Diet Status: regular solids and thin liquids Liquid Consistency and Strategies for Safe Swallow: Liquid Intake Recommendation: Thin Liquid Intake Strategies: Small Sips Solid Food Consistency: Dietary Recommendations: Regular Oral Medication Intake: Whole with Liquid Please contact the pharmacy regarding appropriate crushable or liquid drug formulations that are available whenever modified delivery is recommended. Compensatory Strategies and Precautions to be Taken for Safe Swallow: Sitting Upright (90 deg) Small Bites and Sips Alternate Liquids/Solids Rate of Ingestion Change Avoid Specific Foods Supervision While Eating and Drinking for Safe Swallow: Intermittent Supervision Foods to Avoid: [place] hard or chewy foods Recommendation for Speech: Inpatient Speech Therapy Comment: Patient presents with mildly slowed oral phase d/t lack of dentition, however, with complete oral clearance. No overt s/s of aspiration seen with PO trials at bedside. Patient denies having trouble swallowing and is reportedly on an unmodified diet at [facility]. Patient's does have GI conditions, hx significant for Han's esophagus and GERD. Recommend reflux precautions: avoid dietary triggers, avoid eating before bed, remain upright during meal and for at least 30 minutes afterwards. Patient is recommended to elect softer foods from Regular menu, with Thin liquids, pills Whole with Liquid. Avoid [place] hard or chewy foods. Recommend 1 f/u w/ CL[employer]ER B[employer] OPERATOR to ensure toleration of diet. Coding Consultant Clinican/Clinical Fellow: No Supervisory Statement: I have reviewed and agree with the student/clinical fellow's documentation: N/A Speech Language Pathologist: Jessenia Sal M.A., [facility] [employer]
--- NOTE | 2024-08-06 19:47 | PC.NURSE ---
Pt hypertensive 188/74, 186/77. Hydralazine x1 given. Repeat BP 172/72. Provider aware. Echo and CTA ordered. CTA results reported to provider. Thoracentesis ordered. Pt with congested cough. Crackles in left base. Slight SEARS. Sat 92-93% on RA. Encouraged Incentive Spirometer. Left foot cooler than Right. + equal Pedal Pulses. +CMS. Provider notified.
[2024-08-06] MEDS: Nortriptyline HCl 25 MG CAPSULE 75 MG PO (22:54)
[2024-08-06] MEDS: Atorvastatin Calcium 40 MG TABLET PO (22:55)
[2024-08-06] MEDS: Famotidine 20 MG TABLET 40 MG PO (22:56)
[2024-08-06] MEDS: Cyclobenzaprine HCl 5 MG TABLET PO (23:00)
[2024-08-07] VITALS (8 sets, daily range): BP systolic 148–188; BP diastolic 64–78; PULSE 65–82; RESP 16–20; TEMP 36.4–37; O2SAT 92–96
[2024-08-07] MEDS: Ampicillin Sodium/Sulbactam Na 3 GM in 0.9 % Sodium Chloride 100 ML IV ×2 (01:24→07:14)
[2024-08-07] MEDS: 0.9 % Sodium Chloride Flush 3 ML SYRINGE IVFLUSH ×4 (01:29→20:50)
[2024-08-07] MEDS: Levothyroxine Sodium 125 MCG TABLET PO (05:38)
[2024-08-07] MEDS: Omeprazole 20 MG CAPSULE.DR PO (05:38)
[2024-08-07] MEDS: Enoxaparin Sodium 40 MG/0.4 ML SYRINGE SUBCUT (05:38)
[2024-08-07] MEDS: Morphine Sulfate Immed Release 15 MG TABLET PO ×4 (05:38→22:52)
[2024-08-07 06:06] LABS: Prothrombin Time 11.8 SEC (10.9-12.4)
[2024-08-07 06:11] LABS: Anion Gap 14 (12-20); Blood Urea Nitrogen 18 mg/dL (9-16); Calcium 9.3 mg/dL (8.4-10.2); Carbon Dioxide 30 mmol/L (22-29); Chloride 104 mmol/L (96-108); Creatinine Clr Calc Pharmacy 81.3; Estimated Glomerular Filt Rate > 60; Glucose Random 216 mg/dL (60-115); Potassium 3.1 mmol/L (3.3-5.1); Sodium 145 mmol/L (135-145)
[2024-08-07 06:29] LABS: B Type Natriuretic Peptide 648 pg/mL (<100)
[2024-08-07] MEDS: methylPREDNISolone Sod Succ 40 MG/ML VIAL IVPUSH ×2 (07:29→20:50)
[2024-08-07] MEDS: Nicotine 14 MG PATCH.TD24 TRANSDERMA (07:29)
[2024-08-07] MEDS: Furosemide 40 MG/4 ML VIAL IVPUSH ×2 (07:29→17:10)
[2024-08-07] MEDS: oxyCODONE HCl Immed Release 5 MG TABLET 7.5 MG PO ×2 (07:30→13:49)
[2024-08-07] MEDS: Thiamine HCL 100 MG TABLET PO (07:31)
[2024-08-07] MEDS: Magnesium Oxide 400 MG TABLET PO ×3 (07:31→20:50)
[2024-08-07] MEDS: Multivitamin TABLET 1 TAB PO (07:31)
[2024-08-07] MEDS: lisinopriL 5 MG TABLET PO (07:31)
[2024-08-07] MEDS: Gabapentin 300 MG CAPSULE PO ×2 (07:31→20:50)
[2024-08-07] MEDS: busPIRone HCl 10 MG TABLET PO ×3 (07:31→20:50)
[2024-08-07] MEDS: Gabapentin 600 MG TABLET PO ×3 (07:31→20:50)
[2024-08-07] MEDS: Albuterol Sulfate (0.083%) 2.5 MG/3 ML VIAL.NEB INHALE (07:38)
--- NOTE | 2024-08-07 09:08 | HO.PM.IMPN ---
Subjective Subjective Date of Service: 08/07/24 Review of Systems Follow up sepsis, pna feeling better not as sob Physical Exam Vital Signs: Vital Signs: Last Vital Signs Temp 97.6 F 08/07/24 07:36 Pulse 70 08/07/24 07:40 Resp 20 08/07/24 07:40 BP 188/78 H 08/07/24 07:36 Pulse Ox 95 08/07/24 07:36 O2 Del Method Room Air 08/07/24 07:36 O2 Flow Rate 2 08/05/24 15:15 Oxygen Flow Rate 10 08/01/24 21:24 BMI result Body Mass Index 26.6 Appearing in no acute distress lung sounds mild rales heart regular rate rhythm, clear S1, S2 positive bowel sounds, abdomen is soft, nontender neuro patient is alert x3, no focal deficits Objective Data Active Medications Acetaminophen (Acetaminophen 325 Mg Tablet) 975 mg PO Q6H PRN PRN Reason: Pain, Mild 1-3,fever,headache Albuterol Sulfate (Albuterol Sulfate 90 Mcg 8 Gm Inhaler) 2 puff INHALE Q4H PRN PRN Reason: Shortness of Breath Last Admin: 08/05/24 09:49 Dose: 2 puff Documented By: TOBIAS Albuterol Sulfate (Albuterol Sulfate (0.083%) 2.5 Mg/3 Ml Vial.Neb) 2.5 mg INHALE RQ4H WHILE AWAKE [facility] Last Admin: 08/07/24 07:38 Dose: 2.5 mg Documented By: ROSS Albuterol/Ipratropium (Albuterol/Iprat 2.5/0.5mg 3 Ml Ampul.Neb) 3 ml INHALE RQ4H WHILE AWAKE PRN PRN Reason: Shortness of Breath Atorvastatin Calcium (Atorvastatin Calcium 40 Mg Tablet) 40 mg PO BEDTIME [facility] Last Admin: 08/06/24 22:55 Dose: 40 mg Documented By: RAKEL Buspirone HCl (Buspirone Hcl 10 Mg Tablet) 10 mg PO TID [facility] Last Admin: 08/07/24 07:31 Dose: 10 mg Documented By: NIKOLAS Calcium Carbonate (Calcium Carbonate 750 Mg Tab.Chew) 750 mg PO Q4H PRN PRN Reason: Heartburn Last Admin: 08/03/24 03:53 Dose: 750 mg Documented By: DALIA Cyclobenzaprine HCl (Cyclobenzaprine Hcl 5 Mg Tablet) 5 mg PO TID PRN PRN Reason: Muscle Pain Last Admin: 08/06/24 23:00 Dose: 5 mg Documented By: RAKEL Dextrose (Dextrose 50 % 25 Gm/50 Ml Syringe) 25 gm IVPUSH Q15M PRN; Protocol PRN Reason: per Hypoglycemia Standing Ord. Enoxaparin Sodium (Enoxaparin Sodium 40 Mg/0.4 Ml Syringe) 40 mg SUBCUT Q24H [facility] Last Admin: 08/07/24 05:38 Dose: 40 mg Documented By: RAKEL Famotidine (Famotidine 20 Mg Tablet) 40 mg PO BEDTIME [facility] Last Admin: 08/06/24 22:56 Dose: 40 mg Documented By: RAKEL Furosemide (Furosemide 40 Mg/4 Ml Vial) 40 mg IVPUSH BID@0900,1800 [facility]; Protocol Last Admin: 08/07/24 07:29 Dose: 40 mg Documented By: NIKOLAS Gabapentin (Gabapentin 300 Mg Capsule) 300 mg PO BID [facility] Last Admin: 08/07/24 07:31 Dose: 300 mg Documented By: NIKOLAS Gabapentin (Gabapentin 600 Mg Tablet) 600 mg PO TID [facility] Last Admin: 08/07/24 07:31 Dose: 600 mg Documented By: NIKOLAS Glucose (Glucose Gel 15 Gm Gel..Gram.) 15 gm PO Q15M PRN; Protocol PRN Reason: per Hypoglycemia Standing Ord. Guaifenesin (Guaifenesin La 600 Mg Tab.Er.12h) 600 mg PO Q12H PRN PRN Reason: Cough Last Admin: 08/05/24 19:04 Dose: 600 mg Documented By: TOBIAS Ampicillin Sodium/Sulbactam (Sodium 3 gm/ Sodium Chloride) 100 mls @ 200 mls/hr IV Q6H [facility] Last Infusion: 08/07/24 08:25 Dose: Infused Documented By: NIKOLAS Levothyroxine Sodium (Levothyroxine Sodium 125 Mcg Tablet) 125 mcg PO DAILY@0600 [facility] Last Admin: 08/07/24 05:38 Dose: 125 mcg Documented By: RAKEL Lisinopril (Lisinopril 5 Mg Tablet) 5 mg PO DAILY [facility]; Protocol Last Admin: 08/07/24 07:31 Dose: 5 mg Documented By: NIKOLAS Loperamide HCl (Loperamide Hcl 2 Mg Capsule) 2 mg PO Q6H PRN PRN Reason: Diarrhea Last Admin: 08/04/24 10:13 Dose: 2 mg Documented By: CASEY Magnesium Hydroxide (Milk Of Magnesia 30 Ml Oral.Susp) 30 ml PO DAILY PRN PRN Reason: Constipation Magnesium Oxide (Magnesium Oxide 400 Mg Tablet) 400 mg PO TID [facility] Last Admin: 08/07/24 07:31 Dose: 400 mg Documented By: NIKOLAS Melatonin (Melatonin 3 Mg Tablet) 6 mg PO BEDTIME PRN PRN Reason: Insomnia Methylprednisolone Sodium Succinate (Methylprednisolone Sod Succ 40 Mg/Ml Vial) 40 mg IVPUSH Q12H [facility] Last Admin: 08/07/24 07:29 Dose: 40 mg Documented By: NIKOLAS Morphine Sulfate (Morphine Sulfate Immed Release 15 Mg Tablet) 15 mg PO QID@0400,1100,1700,2300 [facility] Last Admin: 08/07/24 05:38 Dose: 15 mg Documented By: RAKEL Multivitamins/Vitamin C (Multivitamin Tablet) 1 tab PO DAILY [facility] Last Admin: 08/07/24 07:31 Dose: 1 tab Documented By: NIKOLAS Nicotine (Nicotine 14 Mg Patch.Td24) 14 mg TRANSDERMA DAILY [facility] Last Admin: 08/07/24 07:29 Dose: 14 mg Documented By: NIKOLAS Nitroglycerin (Nitroglycerin 0.4 Mg Tab.Subl) 0.4 mg SUBLINGUAL Q5MX3 PRN PRN Reason: Chest Pain Nortriptyline HCl (Nortriptyline Hcl 25 Mg Capsule) 75 mg PO BEDTIME [facility] Last Admin: 08/06/24 22:54 Dose: 75 mg Documented By: RAKEL Omeprazole (Omeprazole 20 Mg Capsule.Dr) 20 mg PO DAILY@0630 [facility] Last Admin: 08/07/24 05:38 Dose: 20 mg Documented By: RAKEL Ondansetron HCl (Ondansetron Hcl 4 Mg/2 Ml Vial) 4 mg IVPUSH Q8H PRN PRN Reason: Nausea and Vomiting Oxycodone HCl (Oxycodone Hcl Immed Release 5 Mg Tablet) 7.5 mg PO Q6H PRN PRN Reason: Breakthrough Pain Last Admin: 08/07/24 07:30 Dose: 7.5 mg Documented By: NIKOLAS Sodium Chloride (0.9 % Sodium Chloride Flush 3 Ml Syringe) 3 ml IVFLUSH QSHIFT [facility] Last Admin: 08/07/24 07:14 Dose: 3 ml Documented By: ANDREATRKody Sodium Chloride (Sodium Chloride 0.65 % Nasal 44 Ml Sprbtl) 2 spray NOSTRIL-B Q4H PRN PRN Reason: allergies Thiamine HCl (Thiamine Hcl 100 Mg Tablet) 100 mg PO DAILY [facility] Last Admin: 08/07/24 07:31 Dose: 100 mg Documented By: NIKOLAS Labs 08/04/24 06:03 08/07/24 05:36 Labs: Laboratory Results - last 24 hr 08/07/24 05:36 Hold Purple Top SEE NOTE PT 11.8 INR 1.0 Anion Gap 14 Estim Creat Clear Calc 81.3 Estimated GFR > 60 Random Glucose 216 H Calcium 9.3 B-Natriuretic Peptide 648 H Microbiology Microbiology Results: Microbiology 08/01/24 22:02 Blood Culture - Final Blood - Venous No growth after 5 days. 08/01/24 21:51 Blood Culture - Final Blood - Venous No growth after 5 days. Assessment and Plan (1) Sepsis: Status: Acute Plan 74-year-old female with a past medical history significant for Mclean's esophagus, GERD, HLD, osteoarthritis, fibromyalgia, type 2 diabetes, HFpEF, who presented to the ED from an SNF via EMS due to altered mental status, fever, and shortness of breath. Fluid overload no hx of CHF normal echo bnp 648 IV lasix 40 BID CTA>-PE, bilateral effusions Thoracentesis ordered with cytology COPD exacerbation Scheduled albuterol Solumedrol BID, switch to prednisone tomorrow Continue supplemental oxygen, wean as tolerated Acute hypoxic respiratory failure and severe sepsis secondary to aspiration pneumonia. Sepsis resolved chest CT suggestive of aspiration pneumonia with reactive lymph nodes COVID/flu/ RSV negative D-dimer negative seen by speech, cleared for diet blood cultures neg s/p unasyn 6 days Continue supplemental oxygen, wean as tolerated Toxic metabolic encephalopathy. Resolved Patient awake alert Mclean's esophagus/GERD continue home meds HLD continue home meds Pre-type 2 diabetes, diet controlled no meds on med rec hba1c 6.7 diabetic diet Hypothyroidism Continue Synthroid HLD Continue statin Chronic pain Continue baseline morphine, oxycodone, gabapentin full code VTE prophylaxis: Lovenox Quality Stroke Does the patient have a stroke diagnosis?: No VTE Prior VTE?: No VTE Risk Level:: Medical - moderate - high VTE Device Contraindication: Treatment Not Indicated VTE Drug Contraindication: N/A - Med Ordered
[2024-08-07] MEDS: Potassium Chloride ER 20 MEQ TAB.ER.PRT 40 MEQ PO (10:30)
--- NOTE | 2024-08-07 12:37 | MHC.CM.PN ---
EMR REVIEWED AND PER MD ROUNDS, PT IS NOT YET MEDICALLY CLEARED FOR DC BACK TO CENTER , POSSIBLE DC TOMORROW. CELIA TALLEY UPDATED VIA [employer]. CM WILL CONTINUE TO FOLLOW FOR ANY CHANGE TO DC PLAN.
--- NOTE | 2024-08-07 15:08 | MHC.SLORD ---
Speech Language Pathology Order Status: Pt not seen today, [facility] [employer] to follow-up x1 tomorrow.
--- NOTE | 2024-08-07 15:17 | PM.DS ---
DS: Providers Provider Date of Service: 08/09/24 <ALEXANDR Regalado - Last Filed: 08/09/24 10:57> Date of admission: 08/02/24 02:52 <Adalgisa Fofana NP - Last Filed: 08/07/24 15:20> Date of discharge: 08/09/24 <ALEXANDR Regalado - Last Filed: 08/09/24 10:57> Primary care physician: Renato Arnold DO <Adalgisa Fofana NP - Last Filed: 08/07/24 15:20> Attending physician on discharge: Seng Whitaker <ALEXANDR Regalado - Last Filed: 08/09/24 10:57> Discharging clinician: Snow Palomares <ALEXANDR Regalado - Last Filed: 08/09/24 10:57> DS: Diagnosis Discharge Diagnosis (1) Sepsis: Status: Acute <Adalgisa Fofana NP - Last Filed: 08/07/24 15:20> DS: Summary Hospital Course Hospital Course: History and physical as per admitting provider. patient is a 74-year-old female with a past medical history significant for Mclean's esophagus, GERD, HLD, awake, fibromyalgia, type 2 diabetes, HFpEF, who presented to the ED from an SNF via EMS due to altered mental status, fever, and shortness of breath. She was satting in the 80s on room air at the facility. At baseline she does not use oxygen. the patient is altered and unable to give a history. Workup in the ED was significant for aspiration pneumonia with acute hypoxia and sepsis. She was started on ceftriaxone and doxycycline in ED and given a 30 cc/kg fluid bolus with multiple doses of albumin due to hypotension. COVID flu and RSV were all negative. D-dimer also negative. Abdominopelvic CT negative UA negative. Her temperature was up to 102.8 and she has been tachycardic with a white count is 29.1. She has been maintaining her blood pressure since receiving the albumin Heart failure with preserved ejection fraction. Lasix was held on admission for hypotension. Patient became more sob and BNP was elevated. CTA negative for PE, showing bilateral pleural effusions however when taken down to IR, ultrasound did not yield enough fluid to be removed therefore thoracentesis was canceled. She was started on IV Lasix with good effect, Is&Os not accurate, but respiratory symptoms improved significantly. ECHO with grade II diastolic dysfunction. Fluid overload likely in the setting of IVF resuscitation and therefore resumed baseline dose of oral Lasix. Has been weaned off of supplemental oxygen. COPD exacerbation treated with schedule albuterol and Solu-Medrol. Transitioned to p.o. prednisone, short taper outpatient Acute hypoxic respiratory failure and severe sepsis secondary to aspiration pneumonia. Sepsis resolved chest CT suggestive of aspiration pneumonia with reactive lymph nodes. COVID/flu/ RSV negative. D-dimer negative. seen by speech, cleared for diet and has been tolerating regular diet without difficulty. blood cultures have remained negative. s/p course of unasyn, completed course during hospital stay. Weaned off of supplemental oxygen, respiratory symptoms improved, stable for discharge back to [facility]. 1.3 cm right upper lobe pulmonary nodule. no change. outpatient follow up mediastinal and bilateral hilar lyjphadenopathy. ?reactive due to acute infection. recommend outpatient follow up, consider repeat imaging to assess for resolution Toxic metabolic encephalopathy. Resolved Pre-type 2 diabetes, diet controlled no meds on med rec. hba1c 6.7. diabetic diet Hypertension-blood pressure noted to be elevated, started on lisinopril 5 mg daily, may need further titration. Continued on all other baseline medications <Adalgisa Fofana NP - Last Filed: 08/07/24 15:20> Time Attestation Discharge Coordination Time (in mins): 36 <ALEXANDR Regalado - Last Filed: 08/09/24 10:57> Quality: Safe Use of Opioids Does Pt have an Active Cancer Diagnosis on the Problem List?: No <ALEXANDR Regalado - Last Filed: 08/09/24 10:57> Quality: Stroke Does the patient have a stroke diagnosis?: No <ALEXANDR Regalado - Last Filed: 08/09/24 10:57> Physical Exam Vital Signs: Vital Signs: Last Vital Signs Temp 98.6 F 08/07/24 15:01 Pulse 73 08/07/24 15:01 Resp 16 08/07/24 15:01 BP 162/74 H 08/07/24 15:01 Pulse Ox 96 08/07/24 15:01 O2 Del Method Room Air 08/07/24 15:01 O2 Flow Rate 2 08/05/24 15:15 Oxygen Flow Rate 10 08/01/24 21:24 BMI result Body Mass Index 26.6 <Adalgisa Fofana NP - Last Filed: 08/07/24 15:20> Const: General: cooperative, comfortable, no acute distress, alert and awake <ALEXANDR Regalado - Last Filed: 08/09/24 10:57> Nutritional Appearance: average body habitus <ALEXANDR Regalado - Last Filed: 08/09/24 10:57> Orientation/consciousness: patient oriented x3 <ALEXANDR Regalado - Last Filed: 08/09/24 10:57> Resp: Effort & Inspection: normal respiratory effort, able to speak in complete sentences, no respiratory distress and no use of accessory muscles <ALEXANDR Regalado - Last Filed: 08/09/24 10:57> Neuro: General: patient oriented x3 <ALEXANDR Regalado Last Filed: 08/09/24 10:57> DS: Data Data Completed and Pending Pending studies at discharge: Pending at discharge 08/06/24 17:05 Cytology [PTH] Routine <Adalgisa Fofana NP - Last Filed: 08/07/24 15:20> Labs on day of discharge: Laboratory Results - last 24 hr 08/07/24 05:36 Hold Purple Top SEE NOTE PT 11.8 INR 1.0 Sodium 145 Potassium 3.1 L Chloride 104 Carbon Dioxide 30 H Anion Gap 14 BUN 18 H Creatinine 0.63 Estim Creat Clear Calc 81.3 Estimated GFR > 60 Random Glucose 216 H Calcium 9.3 B-Natriuretic Peptide 648 H <Adalgisa Fofana NP - Last Filed: 08/07/24 15:20> Discharge Plan Discharge Anticipated Discharge Date/Time: 08/09/24 10:50 <Adalgisa Fofana NP - Last Filed: 08/07/24 15:20> Patient Disposition: Xfer SNF <Adalgisa Fofana NP - Last Filed: 08/07/24 15:20> Discharge Diagnosis: Aspiration pneumonia Heart failure with preserved ejection fraction COPD exacerbation Toxic metabolic encephalopathy HTN <KJ Marsh Last Filed: 08/07/24 15:20> Aspiration pneumonia Heart failure with preserved ejection fraction COPD exacerbation Toxic metabolic encephalopathy HTN <ALEXANDR Regalado - Last Filed: 08/09/24 10:57> Referrals: [facility] [Outside] - 1 Day (RESUMPTION OF LTC. ) Renato Arnold DO [Primary Care Provider] - 1 Week <Adalgisa Fofana NP - Last Filed: 08/07/24 15:20> Discharge Medications: New lisinopril 5 mg Tablet 5 mg PO DAILY Qty: 30 0RF Protocol: Hold for SBP< HOLD for SBP < : 90 prednisone 20 mg tablet 40 mg PO DAILY 3 Days Qty: 6 0RF Continued furosemide 40 mg tablet 40 mg PO DAILY nortriptyline 25 mg capsule 75 mg PO BEDTIME gabapentin 300 mg capsule 300 mg PO BID thiamine HCl (vitamin B1) [Vitamin B-1] 100 mg Tablet 100 mg PO DAILY potassium chloride 20 mEq tablet,ER particles/crystals 20 meq PO DAILY cholecalciferol (vitamin D3) [Vitamin D3] 50 mcg (2,000 unit) Capsule 100 mcg PO DAILY multivitamin Tablet 1 tab PO DAILY docosanol 10 % Cream 1 appl TOPICAL Q4H PRN (Reason: Cold Sores) sennosides [senna] 8.6 mg Tablet 8.6 mg PO DAILY PRN (Reason: Constipation) naloxone 0.4 mg/mL Solution 0.4 mg SUBCUT Q3M PRN (Reason: Opioid Overdose) Rx Instructions: NTExceed 10 mg total dose/episode acetaminophen 650 mg Tablet Extended Release 650 mg PO Q12H PRN (Reason: Fever) esomeprazole magnesium [Nexium] 40 mg Capsule,Delayed Release(Dr/Ec) 40 mg PO DAILY@0630 levothyroxine 125 mcg Tablet 125 mcg PO DAILY@0600 buspirone 10 mg Tablet 10 mg PO TID Fleet Enema 19-7 gram/118 mL Enema 118 ml [place] BEDTIME PRN (Reason: constipation if bisacodyl ineffective) alum-mag hydroxide-simeth 200-200-20 mg/5 mL Suspension 20 ml PO Q4H PRN (Reason: Heartburn) Rx Instructions: administer between meals and at bedtime nystatin 100,000 unit/gram Powder 1 appl TOPICAL Q12H PRN (Reason: irritated skin) oxycodone-acetaminophen 7.5-325 mg Tablet 1 tab PO Q6H PRN (Reason: Breakthrough Pain) albuterol sulfate 90 mcg/actuation Hfa Aerosol Inhaler 2 puff INHALATION Q4H PRN (Reason: SOB) morphine 15 mg Tablet 15 mg PO QID [place] Nasal 0.65 % Aerosol,[place]ryant 2 spray INTRANASAL Q4H PRN (Reason: allergies) diclofenac sodium 1 % Gel 4 g TOPICAL Q6H PRN (Reason: arthritis pain) Rx Instructions: apply to single knee, ankle, foot; for foot includes sole/toes/top of foot lidocaine HCl 3 % Gel With Pump 1 pump TOPICAL Q4H PRN (Reason: moderate joint pain) guaifenesin [Mucinex] 600 mg Tablet Extended Release 12hr 600 mg PO Q12H PRN (Reason: Cough) Biotene Dry Mouth Oral Rinse Mouthwash 15 ml MUCOUS MEMBRANE Q4H PRN (Reason: Dry Mouth) Rx Instructions: swish for 15-30 secs , then spit out; do not swallow gabapentin 600 mg tablet 600 mg PO TID atorvastatin 40 mg tablet 40 mg PO BEDTIME cyclobenzaprine 5 mg tablet 5 mg PO TID PRN (Reason: Muscle Pain) famotidine 40 mg tablet 40 mg PO BEDTIME loperamide 2 mg capsule 2 mg PO Q6H MDD 8 mg PRN (Reason: Diarrhea) loratadine 10 mg tablet 10 mg PO DAILY PRN (Reason: Congestion) magnesium oxide 400 mg magnesium capsule 400 mg PO TID bisacodyl 10 mg suppository 10 mg [place] DAILY PRN (Reason: Constipation if senna ineffective) acetaminophen 650 mg tablet extended release 650 mg PO Q12H PRN (Reason: Pain (Scale Score 1-3)) <Adalgisa Fofana NP - Last Filed: 08/07/24 15:20> Discharge Orders: Discharge Order (Routine); Ordered 08/09/24 Ordered By: Snow Palomares <Adalgisa Fofana NP - Last Filed: 08/07/24 15:20> Diet: Advance to usual diet <Adalgisa Fofana NP - Last Filed: 08/07/24 15:20> Advance to usual diet <ALEXANDR Regalado - Last Filed: 08/09/24 10:57> Activity on Discharge: As tolerated <Adalgisa Fofana NP - Last Filed: 08/07/24 15:20> As tolerated <ALEXANDR Regalado - Last Filed: 08/09/24 10:57> Stand Alone Forms: Patient Portal Discharge page <Adalgisa Fofana NP - Last Filed: 08/07/24 15:20> Print Language: Maori <Adalgisa Fofana NP - Last Filed: 08/07/24 15:20> Care Plan Goals: see below <Adalgisa Fofana NP - Last Filed: 08/07/24 15:20> Health Concerns: Aspiration pneumonia Heart failure with preserved ejection fraction COPD exacerbation Toxic metabolic encephalopathy elevated blood pressure <Adalgisa Fofana NP - Last Filed: 08/07/24 15:20> Plan of Treatment: Complete short course of oral steroids, 3 more days Completed antibiotics during hospitalization Started on lisinopril 5 mg for blood pressure, may need further titration Mediastinal/hilar lymphadenopathy-consider repeat imaging to ensure resolution Right pulmonary nodule-outpatient follow-up Follow-up with primary care provider as needed Take all medications as prescribed <Adalgisa Fofana NP - Last Filed: 08/07/24 15:20> Assessment: See discharge summary <Adalgisa Fofana NP - Last Filed: 08/07/24 15:20>
[2024-08-07] MEDS: Albuterol Sulfate 90 MCG 8 GM INHALER 2 PUFF INHALE (17:14)
[2024-08-07] MEDS: guaiFENesin LA 600 MG TAB.ER.12H PO (17:14)
[2024-08-07] MEDS: Nortriptyline HCl 25 MG CAPSULE 75 MG PO (20:50)
[2024-08-07] MEDS: Famotidine 20 MG TABLET 40 MG PO (20:50)
[2024-08-07] MEDS: Atorvastatin Calcium 40 MG TABLET PO (20:50)
[2024-08-07] MEDS: Throat Lozenge, Medicated LOZENGE 1 LOZENGE MUCOUS MEM (22:52)
[2024-08-08] VITALS (10 sets, daily range): BP systolic 147–183; BP diastolic 66–85; PULSE 69–97; RESP 17–20; TEMP 36.2–36.8; O2SAT 91–99
[2024-08-08] MEDS: Morphine Sulfate Immed Release 15 MG TABLET PO ×4 (03:49→23:14)
[2024-08-08] MEDS: Enoxaparin Sodium 40 MG/0.4 ML SYRINGE SUBCUT (03:49)
[2024-08-08] MEDS: Throat Lozenge, Medicated LOZENGE 1 LOZENGE MUCOUS MEM ×3 (03:50→23:17)
[2024-08-08] MEDS: Omeprazole 20 MG CAPSULE.DR PO (05:59)
[2024-08-08] MEDS: Levothyroxine Sodium 125 MCG TABLET PO (05:59)
[2024-08-08 07:12] LABS: Anion Gap 13 (12-20); Blood Urea Nitrogen 23 mg/dL (9-16); Carbon Dioxide 29 mmol/L (22-29); Chloride 105 mmol/L (96-108); Creatinine Clr Calc Pharmacy 78.7; Estimated Glomerular Filt Rate > 60; Glucose Random 215 mg/dL (60-115); Sodium 143 mmol/L (135-145)
[2024-08-08 07:15] LABS: B Type Natriuretic Peptide 525 pg/mL (<100)
[2024-08-08] MEDS: Albuterol Sulfate (0.083%) 2.5 MG/3 ML VIAL.NEB INHALE ×4 (08:26→18:46)
[2024-08-08] MEDS: Furosemide 40 MG/4 ML VIAL IVPUSH ×2 (08:34→18:21)
[2024-08-08] MEDS: Nicotine 14 MG PATCH.TD24 TRANSDERMA (08:34)
[2024-08-08] MEDS: Multivitamin TABLET 1 TAB PO (08:35)
[2024-08-08] MEDS: 0.9 % Sodium Chloride Flush 3 ML SYRINGE IVFLUSH ×3 (08:35→20:23)
[2024-08-08] MEDS: Gabapentin 600 MG TABLET PO ×3 (08:35→20:23)
[2024-08-08] MEDS: busPIRone HCl 10 MG TABLET PO ×3 (08:35→20:23)
[2024-08-08] MEDS: lisinopriL 5 MG TABLET PO (08:35)
[2024-08-08] MEDS: Thiamine HCL 100 MG TABLET PO (08:35)
[2024-08-08] MEDS: Magnesium Oxide 400 MG TABLET PO ×3 (08:35→20:23)
[2024-08-08] MEDS: predniSONE 20 MG TABLET 40 MG PO (08:35)
[2024-08-08] MEDS: Gabapentin 300 MG CAPSULE PO ×2 (08:35→20:23)
[2024-08-08] MEDS: Calcium Carbonate 750 MG TAB.CHEW PO (09:35)
--- NOTE | 2024-08-08 11:08 | MHC.SL.SWA ---
Speech Pathologist Impression: Risk of Aspiration Due to: Dysphasia Diet Status: Patient presents with mildly slowed oral phase d/t lack of dentition, however, with complete oral clearance. No overt s/s of aspiration seen with PO trials at bedside. Patient denies having trouble swallowing and is reportedly on an unmodified diet at [facility]. Patient's does have GI conditions, hx significant for Han's esophagus and GERD. Recommend reflux precautions: avoid dietary triggers, avoid eating before bed, remain upright during meal and for at least 30 minutes afterwards. Patient is recommended to elect softer foods from Regular menu, with Thin liquids, pills Whole with Liquid. Avoid [place] hard or chewy foods. Recommend 1 f/u w/ RESEARCH DEVELOPMENT DIRECTOR to ensure toleration of diet. Liquid Consistency and Strategies for Safe Swallow: Liquid Intake Recommendation: Thin Liquid Intake Strategies: Small Sips Solid Food Consistency: Dietary Recommendations: Regular Additional Modifications to Solid Foods: Oral Medication Intake: Whole with Liquid Please contact the pharmacy regarding appropriate crushable or liquid drug formulations that are available whenever modified delivery is recommended. Compensatory Strategies and Precautions to be Taken for Safe Swallow: Sitting Upright (90 deg) Small Bites and Sips Alternate Liquids/Solids Rate of Ingestion Change Avoid Specific Foods Supervision While Eating and Drinking for Safe Swallow: Intermittent Supervision Foods to Avoid: [place] hard or chewy foods Swallowing Recommended Treatments: Recommendation for Speech: Inpatient Speech Therapy Comment: Patient seen this morning at breakfast which she had mostly consumed. Patient was observed eating farina which came with meal, produced a timely oral and pharyngeal phase of swallow. Patient has been recommended to be on a regular diet with thin liquids, pills whole with liquid, with recommendation that she elect softer foods from the regular menu, secondary to lack of dentition and history of esophageal phase issues (she is followed by GI in [place] for these needs). Patient is tolerating current diet, no further RESEARCH DEVELOPMENT DIRECTOR service indicated at this time. Will DC from speech. Please re-contact if any additional concerns arise. Frequency/Duration: Date Range for Service Req: Timeline to reassess: Clinical Engineering Director Clinican/Clinical Fellow: No Supervisory Statement: I have reviewed and agree with the student/clinical fellow's documentation: N/A Speech Language Pathologist: Jessenia Sal M.A., CCC-RESEARCH DEVELOPMENT DIRECTOR
--- NOTE | 2024-08-08 14:15 | HO.PM.IMPN ---
Subjective Subjective Date of Service: 08/08/24 Interval History: seen and examined this morning follow up for pneumonia, CHF reporting gas and acid reflux breathing slowly improving Review of Systems Review of Systems: Yes all other systems are reviewed and are negative Constitutional Constitutional: Denies chills and Denies fever(s) Physical Exam Vital Signs: Vital Signs: Last Vital Signs Temp 98.2 F 08/08/24 11:51 Pulse 83 08/08/24 11:51 Resp 17 08/08/24 11:51 BP 147/66 H 08/08/24 11:51 Pulse Ox 92 08/08/24 11:51 O2 Del Method Room Air 08/08/24 11:51 O2 Flow Rate 2 08/05/24 15:15 Oxygen Flow Rate 10 08/01/24 21:24 BMI result Body Mass Index 26.6 Const: General: cooperative, no acute distress, alert and awake Nutritional Appearance: average body habitus Orientation/consciousness: patient oriented x3 Resp: Effort & Inspection: normal respiratory effort, able to speak in complete sentences, no respiratory distress and no use of accessory muscles Cardio: Rate: regular rate GI: Inspection: No distended Palpation (GI): not soft Neuro: General: patient oriented x3, moves all extremities and CN's II-XI intact bilaterally Objective Data Active Medications Acetaminophen (Acetaminophen 325 Mg Tablet) 975 mg PO Q6H PRN PRN Reason: Pain, Mild 1-3,fever,headache Albuterol Sulfate (Albuterol Sulfate 90 Mcg 8 Gm Inhaler) 2 puff INHALE Q4H PRN PRN Reason: Shortness of Breath Last Admin: 08/07/24 17:14 Dose: 2 puff Documented By: CASEY Albuterol Sulfate (Albuterol Sulfate (0.083%) 2.5 Mg/3 Ml Vial.Neb) 2.5 mg INHALE RQ4H WHILE AWAKE [facility] Last Admin: 08/08/24 11:17 Dose: 2.5 mg Documented By: ROSS Albuterol/Ipratropium (Albuterol/Iprat 2.5/0.5mg 3 Ml Ampul.Neb) 3 ml INHALE RQ4H WHILE AWAKE PRN PRN Reason: Shortness of Breath Atorvastatin Calcium (Atorvastatin Calcium 40 Mg Tablet) 40 mg PO BEDTIME [facility] Last Admin: 08/07/24 20:50 Dose: 40 mg Documented By: BECCA Benzocaine (Throat Lozenge, Medicated Lozenge) 1 lozenge MUCOUS MEM Q2H PRN PRN Reason: Sore Throat Last Admin: 08/08/24 09:35 Dose: 1 lozenge Documented By: JENI Buspirone HCl (Buspirone Hcl 10 Mg Tablet) 10 mg PO TID [facility] Last Admin: 08/08/24 08:35 Dose: 10 mg Documented By: KAUR Calcium Carbonate (Calcium Carbonate 750 Mg Tab.Chew) 750 mg PO Q4H PRN PRN Reason: Heartburn Last Admin: 08/08/24 09:35 Dose: 750 mg Documented By: JENI Cyclobenzaprine HCl (Cyclobenzaprine Hcl 5 Mg Tablet) 5 mg PO TID PRN PRN Reason: Muscle Pain Last Admin: 08/06/24 23:00 Dose: 5 mg Documented By: RAKEL Dextrose (Dextrose 50 % 25 Gm/50 Ml Syringe) 25 gm IVPUSH Q15M PRN; Protocol PRN Reason: per Hypoglycemia Standing Ord. Enoxaparin Sodium (Enoxaparin Sodium 40 Mg/0.4 Ml Syringe) 40 mg SUBCUT Q24H [facility] Last Admin: 08/08/24 03:49 Dose: 40 mg Documented By: BECCA Famotidine (Famotidine 20 Mg Tablet) 40 mg PO BEDTIME [facility] Last Admin: 08/07/24 20:50 Dose: 40 mg Documented By: BECCA Furosemide (Furosemide 40 Mg/4 Ml Vial) 40 mg IVPUSH BID@0900,1800 [facility]; Protocol Last Admin: 08/08/24 08:34 Dose: 40 mg Documented By: KAUR Gabapentin (Gabapentin 300 Mg Capsule) 300 mg PO BID [facility] Last Admin: 08/08/24 08:35 Dose: 300 mg Documented By: KAUR Gabapentin (Gabapentin 600 Mg Tablet) 600 mg PO TID [facility] Last Admin: 08/08/24 08:35 Dose: 600 mg Documented By: KAUR Glucose (Glucose Gel 15 Gm Gel..Gram.) 15 gm PO Q15M PRN; Protocol PRN Reason: per Hypoglycemia Standing Ord. Guaifenesin (Guaifenesin La 600 Mg Tab.Er.12h) 600 mg PO Q12H PRN PRN Reason: Cough Last Admin: 08/07/24 17:14 Dose: 600 mg Documented By: CASEY Levothyroxine Sodium (Levothyroxine Sodium 125 Mcg Tablet) 125 mcg PO DAILY@0600 [facility] Last Admin: 08/08/24 05:59 Dose: 125 mcg Documented By: BECCA Lisinopril (Lisinopril 5 Mg Tablet) 5 mg PO DAILY [facility]; Protocol Last Admin: 08/08/24 08:35 Dose: 5 mg Documented By: KAUR Loperamide HCl (Loperamide Hcl 2 Mg Capsule) 2 mg PO Q6H PRN PRN Reason: Diarrhea Last Admin: 08/04/24 10:13 Dose: 2 mg Documented By: CASEY Magnesium Hydroxide (Milk Of Magnesia 30 Ml Oral.Susp) 30 ml PO DAILY PRN PRN Reason: Constipation Magnesium Oxide (Magnesium Oxide 400 Mg Tablet) 400 mg PO TID [facility] Last Admin: 08/08/24 08:35 Dose: 400 mg Documented By: KAUR Melatonin (Melatonin 3 Mg Tablet) 6 mg PO BEDTIME PRN PRN Reason: Insomnia Morphine Sulfate (Morphine Sulfate Immed Release 15 Mg Tablet) 15 mg PO QID@0400,1100,1700,2300 [facility] Last Admin: 08/08/24 12:06 Dose: 15 mg Documented By: KAUR Multivitamins/Vitamin C (Multivitamin Tablet) 1 tab PO DAILY [facility] Last Admin: 08/08/24 08:35 Dose: 1 tab Documented By: KAUR Nicotine (Nicotine 14 Mg Patch.Td24) 14 mg TRANSDERMA DAILY [facility] Last Admin: 08/08/24 08:34 Dose: 14 mg Documented By: KAUR Nitroglycerin (Nitroglycerin 0.4 Mg Tab.Subl) 0.4 mg SUBLINGUAL Q5MX3 PRN PRN Reason: Chest Pain Nortriptyline HCl (Nortriptyline Hcl 25 Mg Capsule) 75 mg PO BEDTIME [facility] Last Admin: 08/07/24 20:50 Dose: 75 mg Documented By: BECCA Omeprazole (Omeprazole 20 Mg Capsule.Dr) 20 mg PO DAILY@0630 [facility] Last Admin: 08/08/24 05:59 Dose: 20 mg Documented By: BECCA Ondansetron HCl (Ondansetron Hcl 4 Mg/2 Ml Vial) 4 mg IVPUSH Q8H PRN PRN Reason: Nausea and Vomiting Oxycodone HCl (Oxycodone Hcl Immed Release 5 Mg Tablet) 7.5 mg PO Q6H PRN PRN Reason: Pain, Moderate(Pain Scale 4-6) Last Admin: 08/07/24 13:49 Dose: 7.5 mg Documented By: NIKOLAS Prednisone (Prednisone 20 Mg Tablet) 40 mg PO DAILY [facility] Last Admin: 08/08/24 08:35 Dose: 40 mg Documented By: KAUR Sodium Chloride (0.9 % Sodium Chloride Flush 3 Ml Syringe) 3 ml IVFLUSH QSHIFT [facility] Last Admin: 08/08/24 08:35 Dose: 3 ml Documented By: KAUR Sodium Chloride (Sodium Chloride 0.65 % Nasal 44 Ml Sprbtl) 2 spray NOSTRIL-B Q4H PRN PRN Reason: allergies Thiamine HCl (Thiamine Hcl 100 Mg Tablet) 100 mg PO DAILY [facility] Last Admin: 08/08/24 08:35 Dose: 100 mg Documented By: KAUR Labs 08/04/24 06:03 08/08/24 06:20 Labs: Laboratory Results - last 24 hr 08/08/24 06:20 Anion Gap 13 Estim Creat Clear Calc 78.7 Estimated GFR > 60 Random Glucose 215 H Calcium 9.0 B-Natriuretic Peptide 525 H Assessment and Plan (1) Acute hypoxic respiratory failure: Status: Acute Plan This is a 74-year-old female with a past medical history significant for Mclean's esophagus, GERD, HLD, osteoarthritis, fibromyalgia, type 2 diabetes, HFpEF, who presented to the ED from an SNF via EMS due to altered mental status, fever, and shortness of breath found to have pneumonia, hospital course complicated by acute on chronic CHF Acute on chronic HFpEF ECHO grade II diastolic dysfunction IV lasix 40 BID with good effect, Ins and outs not accurate CTA>-PE, moderate bilateral effusions Thoracentesis ordered but not enough fluid to drain will transition back to baseline po lasix likely in am hypokalemia due to lasix Resolved with replacement COPD exacerbation Scheduled albuterol Transitioned to oral prednisone Weaned to room air Acute hypoxic respiratory failure and severe sepsis secondary to aspiration pneumonia. Sepsis resolved chest CT suggestive of aspiration pneumonia with reactive lymph nodes - (will need outpatient follow up for chonic pulm nodule and lyphadenopathy) COVID/flu/ RSV negative D-dimer negative seen by speech, cleared for diet blood cultures neg Completed course of unasyn Weaned down to room air Toxic metabolic encephalopathy. Resolved Patient awake alert Mclean's esophagus/GERD continue home meds HLD continue home meds Pre-type 2 diabetes, diet controlled no meds on med rec hba1c 6.7 diabetic diet Hypothyroidism Continue Synthroid HLD Continue statin Chronic pain Continue baseline morphine, oxycodone, gabapentin full code VTE prophylaxis: Lovenox Quality Stroke Does the patient have a stroke diagnosis?: No VTE Prior VTE?: No VTE Risk Level:: Medical - moderate - high VTE Device Contraindication: Treatment Not Indicated VTE Drug Contraindication: N/A - Med Ordered
[2024-08-08] MEDS: Famotidine 20 MG TABLET 40 MG PO (20:23)
[2024-08-08] MEDS: Nortriptyline HCl 25 MG CAPSULE 75 MG PO (20:23)
[2024-08-08] MEDS: Atorvastatin Calcium 40 MG TABLET PO (20:23)
[2024-08-09 03:20] VITALS: BP 144/65; PULSE 70; RESP 18; TEMP 36.1; O2SAT 93
[2024-08-09] MEDS: Morphine Sulfate Immed Release 15 MG TABLET PO ×2 (04:18→11:01)
[2024-08-09] MEDS: Enoxaparin Sodium 40 MG/0.4 ML SYRINGE SUBCUT (04:18)
[2024-08-09] MEDS: Omeprazole 20 MG CAPSULE.DR PO (05:51)
[2024-08-09] MEDS: Levothyroxine Sodium 125 MCG TABLET PO (05:51)
[2024-08-09] MEDS: Throat Lozenge, Medicated LOZENGE 1 LOZENGE MUCOUS MEM (06:14)
[2024-08-09 07:36] VITALS: BP 163/71; PULSE 65; RESP 18; TEMP 37.1; O2SAT 95
[2024-08-09] MEDS: Gabapentin 300 MG CAPSULE PO (08:53)
[2024-08-09] MEDS: busPIRone HCl 10 MG TABLET PO (08:53)
[2024-08-09] MEDS: Furosemide 40 MG TABLET PO (08:53)
[2024-08-09] MEDS: Magnesium Oxide 400 MG TABLET PO (08:54)
[2024-08-09] MEDS: Gabapentin 600 MG TABLET PO (08:54)
[2024-08-09] MEDS: Nicotine 14 MG PATCH.TD24 TRANSDERMA (08:54)
[2024-08-09] MEDS: predniSONE 20 MG TABLET 40 MG PO (08:54)
[2024-08-09] MEDS: Multivitamin TABLET 1 TAB PO (08:54)
[2024-08-09] MEDS: Potassium Chloride ER 20 MEQ TAB.ER.PRT PO (08:54)
[2024-08-09] MEDS: lisinopriL 5 MG TABLET PO (08:54)
[2024-08-09] MEDS: Thiamine HCL 100 MG TABLET PO (08:59)
[2024-08-09] MEDS: 0.9 % Sodium Chloride Flush 3 ML SYRINGE IVFLUSH (09:00)
--- NOTE | 2024-08-09 11:05 | MHC.CM.PN ---
DP: PT HAS BEEN MEDICALLY CLEARED FOR DC BACK TO [facility] FOR RESUMPTION OF LTC. [facility] AND IS ARRANGING TRANSPORT BACK TO CENTER. CM WILL AWAIT TIME OF P/U. HCP UPDATED ON RETURN AND FINAL IMM DELIVERED.
[2024-08-09 11:21] VITALS: PULSE 65; RESP 18; O2SAT 94
[2024-08-09] MEDS: Albuterol Sulfate (0.083%) 2.5 MG/3 ML VIAL.NEB INHALE (11:21)
[2024-08-09] MEDS: oxyCODONE HCl Immed Release 5 MG TABLET 7.5 MG PO (11:46)
== END 2024-08-09 11:55 | disposition skilled nursing facility (03) | DRG 871 ==
LOC: HO.ED 22:36 → HO.EDOVER 08-02 02:56 → HO.IMC 08-02 13:59 → HO.S3 08-03 14:34
PROVIDERS: Hospitalist; Nurse Practitioner Acute Care; Physician Assistant Medical; Admitting Provider Physician Assistant; Emergency Provider Emergency Medicine; PCP Hospitalist; Visit Provider Physician Assistant Medical
DX: A41.9 Sepsis, unspecified organism (principal); G92.8 Other toxic encephalopathy; J96.01 Acute respiratory failure with hypoxia; J69.0 Pneumonitis due to inhalation of food and vomit; I50.33 Acute on chronic diastolic (congestive) heart failure; J44.1 Chronic obstructive pulmonary disease with (acute) exacerbation; E87.0 Hyperosmolality and hypernatremia; K22.70 Barrett's esophagus without dysplasia; E03.9 Hypothyroidism, unspecified; R73.03 Prediabetes; E78.5 Hyperlipidemia, unspecified; G89.29 Other chronic pain; K21.9 Gastro-esophageal reflux disease without esophagitis; F17.210 Nicotine dependence, cigarettes, uncomplicated; Z71.6 Tobacco abuse counseling; Z20.822 Contact with and (suspected) exposure to COVID-19; Z79.890 Hormone replacement therapy; Z79.899 Other long term (current) drug therapy
CPT/HCPCS: 0241U; 36415; 71045; 71260; 71275; 74177; 76604; 80048; 80053; 81001; 82803; 82947; 83036; 83605; 83690; 83735; 83880; 84484; 85007; 85025; 85027; 85379; 85610; 87040; 87493; 92526; 92610; 93005; 93306; 94640; 99285; J0295; J0360; J0696; J1271; J1650; J1938; J2919; P9047; Q9957; Q9967

== ENCOUNTER → 2024-08-01 21:39 | Outpatient (BNV) | payer MEDICARE, MEDICAID, SELFPAY | PROVIDERS: Admitting Provider Physician Assistant; Emergency Provider Emergency Medicine; PCP Hospitalist; Visit Provider Internal Medicine | DX: R94.31 Abnormal electrocardiogram [ECG] [EKG] (principal); R06.02 Shortness of breath; I95.9 Hypotension, unspecified | CPT/HCPCS: 93010 ==

== ENCOUNTER → 2024-08-01 22:40 | Outpatient (BNV) | payer MEDICARE, MEDICAID, SELFPAY | PROVIDERS: Emergency Provider Emergency Medicine; PCP Hospitalist; Visit Provider Radiology Diagnostic Radiology | DX: R06.02 Shortness of breath (principal) | CPT/HCPCS: 71045 ==

== ENCOUNTER 2024-08-02 02:52 | Outpatient (BNV) | payer MEDICARE, MEDICAID, SELFPAY | END 2024-08-02 21:02 | PROVIDERS: Admitting Provider Physician Assistant; Emergency Provider Emergency Medicine; PCP Hospitalist; Visit Provider Internal Medicine | DX: R07.9 Chest pain, unspecified (principal) | CPT/HCPCS: 93010 ==

== ENCOUNTER 2024-08-02 02:52 | Outpatient (BNV) | payer MEDICARE, MEDICAID, SELFPAY | END 2024-08-06 11:17 | PROVIDERS: Admitting Provider Physician Assistant; Emergency Provider Emergency Medicine; PCP Hospitalist; Visit Provider Radiology Diagnostic Radiology | DX: R91.1 Solitary pulmonary nodule (principal) | CPT/HCPCS: 71275 ==

== ENCOUNTER 2024-08-02 02:52 | Outpatient (BNV) | payer MEDICARE, MEDICAID, SELFPAY | END 2024-08-06 07:00 | PROVIDERS: Admitting Provider Physician Assistant; Emergency Provider Emergency Medicine; PCP Hospitalist; Visit Provider Internal Medicine Cardiovascular Disease | DX: I50.9 Heart failure, unspecified (principal); I36.1 Nonrheumatic tricuspid (valve) insufficiency | CPT/HCPCS: 93306 ==

== ENCOUNTER 2024-08-02 02:52 | Outpatient (BNV) | payer MEDICARE, MEDICAID, SELFPAY | END 2024-08-07 14:30 | PROVIDERS: Admitting Provider Physician Assistant; Emergency Provider Emergency Medicine; PCP Hospitalist | DX: J90 Pleural effusion, not elsewhere classified (principal) | CPT/HCPCS: 76604 ==

== ENCOUNTER → 2024-08-02 02:52 | Outpatient (BNV) | payer MEDICARE, MEDICAID, SELFPAY | PROVIDERS: Admitting Provider Physician Assistant; Emergency Provider Emergency Medicine; PCP Hospitalist; Visit Provider Physician Assistant Medical | DX: A41.9 Sepsis, unspecified organism (principal) | CPT/HCPCS: 99223; 99232; 99499 ==

== ENCOUNTER → 2024-08-02 | Outpatient (BNV) | payer MEDICARE, MEDICAID, SELFPAY | PROVIDERS: Admitting Provider Physician Assistant; Emergency Provider Emergency Medicine; PCP Hospitalist; Visit Provider Radiology Diagnostic Radiology | DX: N28.1 Cyst of kidney, acquired (principal); R91.8 Other nonspecific abnormal finding of lung field | CPT/HCPCS: 71260; 74177 ==

== ENCOUNTER 2024-11-15 13:04 | Outpatient (REF) | payer MEDICARE, MEDICAID, SELFPAY ==
--- NOTE | ~2024-11-15 | CT_ITS ---
CLINICAL HISTORY: right pulmonary nodule CT chest without contrast Comparison: None provided Findings: Scattered irregular bilateral pulmonary densities. These may represent residual areas of scarring. Infectious processes are in the differential. Stable 1.3 cm right upper lobe nodule. Stable 2.4 cm left perihilar nodule. Both lesions demonstrate spiculated margins. 1.2 cm left lower lobe nodule, unchanged. Scattered smaller peripheral left lower lobe nodules. Some of these areas obscure on prior study. Malignancy is not excludable, consider PET imaging. 7 mm posterior right lower lobe cavitary lesion. Consolidation on prior study obscures this region. Etiology is indeterminate. Resolution of prior pulmonary edema pattern. Previous pleural effusions have resolved. Stable posterolateral right upper lobe 5 mm nodule. Stable adjacent subpleural linear scar. No significant mediastinal adenopathy noted. Degenerative change in thoracic spine. No significant focal bony abnormalities. Incidental fatty infiltration of the liver. Impression: Bilateral ground-glass densities and pulmonary nodules as above. Malignancy and/or metastatic disease not excludable. Follow-up PET imaging may be of value. Resolution of previous pulmonary edema and pleural fluid. This document has been electronically signed by: Geraldo Gonzalez MD on 11/17/2024 19:14:13
--- OUTSIDE RECORDS SUMMARY | 2024-11-15 13:08 | XMS_ITS | Encounter Summary ---
Author Organization [facility] Address [address] [place] [address] Care Team Providers Care Perch Machine Inspector Name Role Phone Renato Arnold MD Primary Care Provider [phone] Encounter Details Date Type Department Care Team (Late st Contact Info) Description 10/03/2024 Lab Requisition [facility] - Main Lab [address] [facility] [place] [address] Renato Arnold MD [address] [place] [address] [address] [place], [place] Unspecified combined systolic (congestive) and diastolic (congestive) heart failure (CMS/HCC V24, CMS/HCC V28); Type 2 diabetes mellitus without complications (CMS/HCC V24, CMS/HCC V28) Social History Tobacco Use Types Packs/Day Years Used Date Smoking Tobacco: Never Assessed Comments Unknown Sex and Gender Information Value Date Recorded Sex Assigned at Not on file Legal Sex Female 3:32 PM EDT Gender Identity Not on file Sexual Orientation Not on file documented as of this encounter Plan of Treatment Not on file documented as of this encounter Procedures Procedure Name Priority Date/Time Associated Diagnosis Comments HEMOGLOBIN A1C Routine 10/03/2024 6:56 AM EDT Unspecified combined systolic (congestive) and diastolic (congestive) heart failure (CMS/HCC V24, CMS/HCC V28) Type 2 diabetes mellitus without complications (CMS/HCC V24, CMS/HCC V28) COMPREHENSIVE METABOLIC PANEL Routine 10/03/2024 6:56 AM EDT Unspecified combined systolic (congestive) and diastolic (congestive) heart failure (CMS/HCC V24, CMS/HCC V28) Type 2 diabetes mellitus without complications (CMS/HCC V24, CMS/HCC V28) documented in this encounter Results * (ABNORMAL) Hemoglobin A1c (10/03/2024 6:56 AM EDT) [facility] Hemoglobin A1C 7.0(H) <6.5 % LAB CHEMISTRY METHOD 10/03/2024 10:57 AM [facility] Mean Bld Glu Estim. 154 mg/dL LAB CHEMISTRY METHOD 10/03/2024 10:57 AM [facility] Blood Venous blood specimen / Unknown 10/03/2024 6:56 AM EDT 10/03/2024 7:34 AM EDT us Renato Arnold MD LAB BLOOD ORDERABLES Final Resul t [facility] [address] [place] [address], [place] [phone] * (ABNORMAL) Comprehensive metabolic panel (10/03/2024 6:56 AM EDT) [facility] Sodium 141 133 - 145 mmol/L LAB CHEMISTRY METHOD 10/03/2024 8:22 AM [facility] Potassium 4.7 3.5 - 5.5 mmol/L LAB CHEMISTRY METHOD 10/03/2024 8:22 AM [facility] Comment:Hemolysis present Chloride 105 96 - 110 mmol/L LAB CHEMISTRY METHOD 10/03/2024 8:22 AM [facility] CO2 32 21 - 32 mmol/L LAB CHEMISTRY METHOD 10/03/2024 8:22 AM [facility] Anion Gap 4 3 - 11 LAB CHEMISTRY METHOD 10/03/2024 8:22 AM [facility] Glucose 98 70 - 100 mg/dL LAB CHEMISTRY METHOD 10/03/2024 8:22 AM [facility] BUN 18 5 - 25 mg/dL LAB CHEMISTRY METHOD 10/03/2024 8:22 AM [facility] Creatinine 0.90 0.50 - 1.10 mg/dL LAB CHEMISTRY METHOD 10/03/2024 8:22 AM [facility] eGFR 66 >=60 mL/min/1. 73m2 LAB CHEMISTRY METHOD 10/03/2024 8:22 AM [facility] Comment:Calculation based on the Chronic Kidney Disease Epidemiology Collaboration (CKD-EPI) equation refit without adjustment for race. BUN/Creatinine Ratio 20.0 LAB CHEMISTRY METHOD 10/03/2024 8:22 AM [facility] Calcium 9.3 8.5 - 10.5 mg/dL LAB CHEMISTRY METHOD 10/03/2024 8:22 AM [facility] AST (SGOT) 20 10 - 42 unit/L LAB CHEMISTRY METHOD 10/03/2024 8:22 AM [facility] Comment:Hemolysis present ALT (SGPT) 24 10 - 60 unit/L LAB CHEMISTRY METHOD 10/03/2024 8:22 AM [facility] Alkaline Phosphatase 103 42 - 121 unit/L LAB CHEMISTRY METHOD 10/03/2024 8:22 AM [facility] Total Protein 5.7(L) 6.0 - 8.0 g/dL LAB CHEMISTRY METHOD 10/03/2024 8:22 AM [facility] Albumin 3.0(L) 3.2 - 5.0 g/dL LAB CHEMISTRY METHOD 10/03/2024 8:22 AM [facility] Total Bilirubin 0.3 0.0 - 1.4 mg/dL LAB CHEMISTRY METHOD 10/03/2024 8:22 AM [facility] Blood Venous blood specimen / Unknown 10/03/2024 6:56 AM EDT 10/03/2024 7:34 AM EDT us Renato Arnold MD LAB BLOOD ORDERABLES Final Resul t [facility] [address] [place], [place] [address] [phone] documented in this encounter Visit Diagnoses Diagnosis Unspecified combined systolic (congestive) and diastolic (congestive) heart failure ([facility] V24, [facility] V28) Type 2 diabetes mellitus without complications ([facility] V24, [facility] V28) documented in this encounter Care Teams Perch Machine Inspector Relationship Specialty Start Date End Date Renato Arnold MD [address] [place] [address] Dr [address] [place], [place] PCP - General Internal Medicine 06/28/17 documented as of this encounter
--- OUTSIDE RECORDS SUMMARY | 2024-11-15 13:08 | XMS_ITS | Encounter Summary ---
Author Organization [facility] Address [address] [place] [address] Care Team Providers Care Seamless Hosiery Knitter Name Role Phone Renato Arnold MD Primary Care Provider [phone] Encounter Details Date Type Department Care Team (Late st Contact Info) Description 07/03/2024 Lab Requisition [facility] - Main Lab [address] [facility] [place] [address] Renato Arnold MD [address] [place] [address] Dr [address] [place], [place] Hypokalemia; Magnesium deficiency; Unspecified combined systolic (congestive) and diastolic (congestive) [...] Procedure Name Priority Date/Time Associated Diagnosis Comments LIPID PANEL WITH REFLEX TO DIRECT LDL Routine 07/03/2024 7:10 AM EDT Hypokalemia Magnesium deficiency Unspecified combined systolic (congestive) and diastolic (congestive) heart failure (CMS/HCC V24, CMS/HCC V28) Type 2 diabetes mellitus without complications (CMS/HCC V24, CMS/HCC V28) CBC WITH AUTO DIFFERENTIAL Routine 07/03/2024 7:10 AM EDT Hypokalemia Magnesium deficiency Unspecified combined systolic (congestive) and diastolic (congestive) heart failure (CMS/HCC V24, CMS/HCC V28) Type 2 diabetes mellitus without complications (CMS/HCC V24, CMS/HCC V28) CBC AND DIFFERENTIAL Routine 07/03/2024 7:10 AM EDT Hypokalemia Magnesium deficiency Unspecified combined systolic (congestive) and diastolic (congestive) heart failure ([facility]/HCC V24, CMS/HCC V28) Type 2 diabetes mellitus without complications (CMS/HCC V24, CMS/HCC V28) MAGNESIUM Routine 07/03/2024 7:10 AM EDT Hypokalemia Magnesium deficiency Unspecified combined systolic (congestive) and diastolic (congestive) heart failure (CMS/HCC V24, CMS/HCC V28) Type 2 diabetes mellitus without complications (CMS/HCC V24, CMS/[facility] V28) HEMOGLOBIN A1C Routine 07/03/2024 7:10 AM EDT Hypokalemia Magnesium deficiency Unspecified combined systolic (congestive) and diastolic (congestive) heart failure ([facility]/HCC V24, CMS/HCC V28) Type 2 diabetes mellitus without complications ([facility]/HCC V24, CMS/[facility] V28) COMPREHENSIVE METABOLIC PANEL Routine 07/03/2024 7:10 AM EDT Hypokalemia Magnesium deficiency Unspecified combined systolic (congestive) and diastolic (congestive) heart failure ([facility]/HCC V24, CMS/HCC V28) Type 2 diabetes mellitus without complications ([facility] V24, CMS/[facility] V28) documented in this encounter Results * (ABNORMAL) Hemoglobin A1c (07/03/2024 7:10 AM EDT) Hemoglobin A1C 6.8(H) <6.5 % LAB CHEMISTRY METHOD 07/03/2024 10:51 AM EDT [facility] Mean Bld Glu Estim. 148 mg/dL LAB CHEMISTRY METHOD 07/03/2024 10:51 AM EDT [facility] Blood Venous blood specimen / Unknown 07/03/2024 7:10 AM EDT 07/03/2024 7:52 AM EDT us Renato Arnold MD LAB BLOOD ORDERABLES Final Resul t [facility] [address] [place] [address], * (ABNORMAL) CBC auto differential (07/03/2024 7:10 AM EDT) WBC 10.8 4.8 - 10.8 K/mcL LAB HEMETOLOGY METHOD 07/03/2024 8:19 AM EDT [facility] RBC 5.60(H) 3.80 - 4.80 M/[facility] LAB HEMETOLOGY METHOD 07/03/2024 8:19 AM EDT [facility] Hemoglobin 16.3(H) 11.5 - 16.0 g/dL LAB HEMETOLOGY METHOD 07/03/2024 8:19 AM EDT [facility] Hematocrit 49.9(H) 35.0 - 47.0 % LAB HEMETOLOGY METHOD 07/03/2024 8:19 AM EDT [facility] MCV 89.4 79.0 - 98.0 FL LAB HEMETOLOGY METHOD 07/03/2024 8:19 AM EDT [facility] MCH 29.2 27.0 - 32.0 pcg LAB HEMETOLOGY METHOD 07/03/2024 8:19 AM EDT [facility] MCHC 32.7 32.0 - 37.0 g/dL LAB HEMETOLOGY METHOD 07/03/2024 8:19 AM EDT [facility] RDW 13.8 11.0 - 15.0 % LAB HEMETOLOGY METHOD 07/03/2024 8:19 AM EDT [facility] Platelets 338 130 - 400 K/[facility] LAB HEMETOLOGY METHOD 07/03/2024 8:19 AM EDT [facility] MPV 9.7 7.0 - 11.0 FL LAB HEMETOLOGY METHOD 07/03/2024 8:19 AM [facility] NRBC 0.0 <1.0 % LAB HEMETOLOGY METHOD 07/03/2024 8:19 AM [facility] NRBC Absolute 0.00 <0.10 K/mcL LAB HEMETOLOGY METHOD 07/03/2024 8:19 AM [facility] Neutrophils Relative 77.8 % LAB HEMETOLOGY METHOD 07/03/2024 8:19 AM [facility] Lymphocytes Relative 15.7 % LAB HEMETOLOGY METHOD 07/03/2024 8:19 AM [facility] Monocytes Relative 5.4 % LAB HEMETOLOGY METHOD 07/03/2024 8:19 AM [facility] Eosinophils Relative 0.0 % LAB HEMETOLOGY METHOD 07/03/2024 8:19 AM [facility] Basophils Relative 0.2 % LAB HEMETOLOGY METHOD 07/03/2024 8:19 AM [facility] Immature Granulocytes Relative 0.9 % LAB HEMETOLOGY METHOD 07/03/2024 8:19 AM [facility] Neutrophils Absolute 8.43(H) 1.50 - 7.00 K/mcL LAB HEMETOLOGY METHOD 07/03/2024 8:19 AM [facility] Lymphocytes Absolute 1.70 1.00 - 5.00 K/mcL LAB HEMETOLOGY METHOD 07/03/2024 8:19 AM [facility] Monocytes Absolute 0.59 0.20 - 1.00 K/mcL LAB HEMETOLOGY METHOD 07/03/2024 8:19 AM [facility] Eosinophils Absolute 0.00 0.00 - 0.50 K/mcL LAB HEMETOLOGY METHOD 07/03/2024 8:19 AM [facility] Basophils Absolute 0.02 0.00 - 0.20 K/mcL LAB HEMETOLOGY METHOD 07/03/2024 8:19 AM EDT [facility] Immature Granulocytes Absolute 0.10(H) 0.00 - 0.03 K/mcL LAB HEMETOLOGY METHOD 07/03/2024 8:19 AM EDT [facility] Blood Venous blood specimen / Unknown 07/03/2024 7:10 AM EDT 07/03/2024 7:52 AM EDT us Renato Arnold MD LAB BLOOD ORDERABLES Final Resul t Performing Organization Address [facility]/ZIP Co de Phone Number [facility] [address] [place] [address], [place] [phone] * Magnesium (07/03/2024 7:10 AM EDT) Magnesium 2.1 1.9 - 2.6 mg/dL LAB CHEMISTRY METHOD 07/03/2024 9:03 AM EDT [facility] Comment:Hemolysis present Blood Venous blood specimen / Unknown 07/03/2024 7:10 AM EDT 07/03/2024 7:52 AM EDT us Renato Arnold MD LAB BLOOD ORDERABLES Final Resul t Performing Organization Address [facility]/ZIP Co de Phone Number [facility] [address] [place] [address], [place] [phone] * (ABNORMAL) Lipid panel with reflex to direct LDL (07/03/2024 7:10 AM EDT) Cholesterol 254(H) 0 - 200 mg/dL LAB CHEMISTRY METHOD 07/03/2024 9:03 AM EDT [facility] Triglycerides 219(H) 0 - 150 mg/dL LAB CHEMISTRY METHOD 07/03/2024 9:03 AM EDT [facility] HDL 50 >=40 mg/dL LAB [facility]STR[facility] LDL Calculated 160(H) 0 - 100 mg/dL LAB CHEMISTRY METHOD 07/03/2024 9:03 AM [facility] VLDL Cholesterol Wade 43.8 mg/dL LAB CHEMISTRY METHOD 07/03/2024 9:03 AM [facility] Non HDL Chol. (LDL+VLDL) 204(H) <145 mg/dL LAB CHEMISTRY METHOD 07/03/2024 9:03 AM [facility] Chol/HDL Ratio 5.1(H) 0.0 - 4.4 LAB CHEMISTRY METHOD 07/03/2024 9:03 AM [facility] Blood Venous blood specimen / Unknown 07/03/2024 7:10 AM EDT 07/03/2024 7:52 AM EDT us Renato Arnold MD LAB BLOOD ORDERABLES Final Resul t [facility] [address] [place] [address], [place] [phone] * (ABNORMAL) Comprehensive metabolic panel (07/03/2024 7:10 AM EDT) Sodium 135 133 - 145 mmol/L LAB CHEMISTRY METHOD 07/03/2024 9:03 AM [facility] Potassium 5.4 3.5 - 5.5 mmol/L LAB CHEMISTRY METHOD 07/03/2024 9:03 AM [facility] Comment:Hemolysis present Chloride 103 96 - 110 mmol/L LAB CHEMISTRY METHOD 07/03/2024 9:03 AM [facility] CO2 24 21 - 32 mmol/L LAB CHEMISTRY METHOD 07/03/2024 9:03 AM [facility] Anion Gap 8 3 - 11 LAB CHEMISTRY METHOD 07/03/2024 9:03 AM [facility] Glucose 183(H) 70 - 100 mg/dL LAB CHEMISTRY METHOD 07/03/2024 9:03 AM [facility] BUN 15 5 - 25 mg/dL LAB CHEMISTRY METHOD 07/03/2024 9:03 AM [facility] Creatinine 0.75 0.50 - 1.10 mg/dL LAB CHEMISTRY METHOD 07/03/2024 9:03 AM [facility] eGFR 83 >=60 mL/min/1. 73m2 LAB CHEMISTRY METHOD 07/03/2024 9:03 AM [facility] Comment:Calculation based on the Chronic Kidney Disease Epidemiology Collaboration (CKD-EPI) equation refit without adjustment for race. BUN/Creatinine Ratio 20.0 LAB CHEMISTRY METHOD 07/03/2024 9:03 AM [facility] Calcium 10.1 8.5 - 10.5 mg/dL LAB CHEMISTRY METHOD 07/03/2024 9:03 AM [facility] AST (SGOT) 17 10 - 42 unit/L LAB CHEMISTRY METHOD 07/03/2024 9:03 AM [facility] ALT (SGPT) 21 10 - 60 unit/L LAB CHEMISTRY METHOD 07/03/2024 9:03 AM [facility] Alkaline Phosphatase 148(H) 42 - 121 unit/L LAB CHEMISTRY METHOD 07/03/2024 9:03 AM [facility] Total Protein 6.9 6.0 - 8.0 g/dL LAB CHEMISTRY METHOD 07/03/2024 9:03 AM [facility] Albumin 3.2 3.2 - 5.0 g/dL LAB CHEMISTRY METHOD 07/03/2024 9:03 AM [facility] Total Bilirubin 0.4 0.0 - 1.4 mg/dL LAB CHEMISTRY METHOD 07/03/2024 9:03 AM [facility] Blood Venous blood specimen / Unknown 07/03/2024 7:10 AM EDT 07/03/2024 7:52 AM EDT us Renato Arnold MD LAB BLOOD ORDERABLES Final Resul t [facility] ([facility]) [facility] [address] [place] [address], documented in this encounter Visit Diagnoses Diagnosis Hypokalemia Hypopotassemia Magnesium deficiency Disorders of magnesium metabolism Unspecified combined systolic (congestive) and diastolic (congestive) heart failure (CMS/HCC V24, CMS/[facility] V28) Type 2 diabetes mellitus without complications (CMS/[facility] V24, CMS/[facility] V28) documented in this encounter Care Teams Seamless Hosiery Knitter Relationship Specialty Start Date End Date Renato Arnold MD [address] [place] [address] Dr [address] [place], [place] PCP - General Internal Medicine 06/28/17 documented as of this encounter
--- OUTSIDE RECORDS SUMMARY | 2024-11-15 13:08 | XMS_ITS | Encounter Summary ---
Author Organization [facility] Address [address] [place] [address] Care Team Providers Care Physician Assistant Name Role Phone Renato Arnold MD Primary Care Provider [phone] Encounter Details Date Type Department Care Team (Latest Contact Info) Description 05/28/2024 Lab Requisition [facility] - Main Lab [address] [place] [address] Renato Arnold MD [address] [place] [address] [address] [place], [place] Cough, unspecified; Acute nasopharyngitis (common cold) Social History Tobacco Use Types Packs/Day Years [...] Procedure Name Priority Date/Time Associated Diagnosis Comments [id number], RSV, FLU A AND B QUALITATIVE RT-PCR, LOCAL REFERENCE LAB Routine 05/28/2024 1:00 PM EDT Cough, unspecified Acute nasopharyngitis (common cold) documented in this encounter Results * [id number], RSV, Influenza A and B qualitative RT-PCR (05/28/2024 1:00 PM EDT) SARS COV-2 Not Detected Not Detected LAB MOLECULAR DIAGNOSTICS METHOD 05/30/2024 10:30 AM EDT [facility] ([facility] [place] Comment: Disclaimer: The manner in which this information is used to guide patient care is the responsibility of the healthcare provider. Testing was performed using the fsboWOW m SARS-CoV-2 test. This test has been authorized by FDA under an Emergency Use Authorization (EUA). This test is only authorized for the duration of time the declaration that circumstances exist justifying the authorization of the emergency use of in vitro diagnostic tests for detection of SARS-CoV-2 virus and/or diagnosis of COVID-19 infection under section 564(b)(1) of the Act, 21 U.S.C. 360bbb- 3(b)(1), unless the authorization is terminated or revoked sooner. Fact sheet for Healthcare Providers can be found at: https://www.fda.gov/media/794196/download Fact sheet for Patients can be found at: https://www.fda.gov/media/636478/download Influenza A PCR Not Detected Not Detected LAB MOLECULAR DIAGNOSTICS METHOD 05/30/2024 10:30 AM EDT [facility] Influenza B PCR Not Detected Not Detected LAB MOLECULAR DIAGNOSTICS METHOD 05/30/2024 10:30 AM EDT [facility] RSV PCR Not Detected Not Detected LAB MOLECULAR DIAGNOSTICS METHOD 05/30/2024 10:30 AM EDT [facility] Swab Nasopharyngeal structure / Unknown 05/28/2024 1:00 PM EDT 05/28/2024 1:54 PM EDT Renato Arnold MD LAB MICROBIOLOGY - GENERAL ORDER [place] Final Result [facility] [address] [place] [address], documented in this encounter Visit Diagnoses Diagnosis Cough, unspecified Acute nasopharyngitis (common cold) documented in this encounter Additional Health Concerns Infection Onset Date Last Indicated Resolved Time Respiratory Rule-Out 05/28/2024 05/28/2024 025 10:30 AM EDT documented as of this encounter Care Teams Physician Assistant Relationship Specialty Start Date End Date Renato Arnold MD [address] [place] [address] [place] [address] PCP - General Internal Medicine 06/28/17 documented as of this encounter
--- OUTSIDE RECORDS SUMMARY | 2024-11-15 13:08 | XMS_ITS | Encounter Summary ---
Author Organization [facility] Address [address] [place] [address] Care Team Providers Care Industrial Order Clerk Name Role Phone Renato Arnold MD Primary Care Provider [phone] Encounter Details Date Type Department Care Team (Late st Contact Info) Description 08/19/2024 Lab Requisition [facility] - Main Lab [address] [facility] [place] [address] Renato Arnold MD [address] [place] [address] [address] [place], [place] Encounter for other specified special examinations; Hypothyroidism, unspecified Social History Tobacco Use Types Packs/Day Years [...] Procedure Name Priority Date/Time Associated Diagnosis Comments THYROID STIMULATING HORMONE Routine 08/19/2024 6:49 AM EDT Encounter for other specified special examinations Hypothyroidism, unspecified documented in this encounter Results * Thyroid stimulating hormone (08/19/2024 6:49 AM EDT) TSH 1.50 0.40 - 4.00 mcIU/mL LAB CHEMISTRY METHOD 08/19/2024 11:35 AM EDT [facility] Blood Venous blood specimen / Unknown 08/19/2024 6:49 AM EDT 08/19/2024 8:00 AM EDT us Renato Arnold MD LAB BLOOD ORDERABLES Final Resul t [facility] [address] [place] [address], documented in this encounter Visit Diagnoses Diagnosis Encounter for other specified special examinations Hypothyroidism, unspecified documented in this encounter Care Teams Industrial Order Clerk Relationship Specialty Start Date End Date Renato Arnold MD [address] [place] [address] Dr [address] [place], [place] PCP - General Internal Medicine 06/28/17 documented as of this encounter
--- OUTSIDE RECORDS SUMMARY | 2024-11-15 13:08 | XMS_ITS | Clinical Summary ---
Author Organization [address] Address [address] [place] [address] Phone Care Team Providers Care File Clerk Data Entry Name Role Phone Renato Arnold MD Primary Care Provider [phone] Encounters Date Type Department Care Team Description 10/03/2024 Lab Requisition [facility] Lab [address] [place] [phone] Renato Arnold MD Unspecified combined systolic (congestive) and diastolic (congestive) heart failure (CMS/HCC V24, CMS/HCC V28); Type 2 diabetes mellitus without complications (CMS/HCC V24, CMS/HCC V28) 08/19/2024 Lab Requisition [facility] Lab [address] [place] [phone] Renato Arnold MD Encounter for other specified special examinations; Hypothyroidism, unspecified 08/16/2024 Lab Requisition [facility] Lab [address] [place] [phone] Renato Arnold MD Hypothyroidism, unspecified from Last 3 Months Social History Tobacco Use Types Packs/Day Years Used Date Smoking Tobacco: Never Assessed Comments Unknown Sex and Gender Information Value Date Recorded Sex Assigned at Not on file Legal Sex Female 3:32 PM EDT Gender Identity Not on file Sexual Orientation Not on file Plan of Treatment Health Maintenance Due Date Last Done Comments Diabetes: Annual Foot Exam 01/06/1958 Diabetes: Annual Retina Eye Exam 01/06/1958 DTaP,Tdap,and Td Vaccines (1 - Tdap) 01/06/1967 Pneumococcal Vaccine: 50+ Years (1 of 2 - PCV) 01/06/1967 Zoster Vaccines (1 of 2) 01/06/1998 RSV Immunization Adult Patients (1 - 1-dose 75+ series) 01/06/2023 Depression Screening 02/28/2024 Diabetes: Annual Urine Albumin-Creatinine Ratio (uACR) 03/23/2024 Falls Risk Assessment 03/23/2024 Hepatitis C Screening 03/23/2024 Medicare Annual Wellness Visit 03/23/2024 Osteoporosis Screening (Bone Density Screening) 03/23/2024 Social Influencers of Health Screening 03/23/2024 COVID-19 Vaccine ( season) 2024 Influenza Vaccine (#1) 2024 Diabetes: Blood Sugar Control Test (HGBA1C) 04/05/2025 10/03/2024, 07/03/2024, 04/17/2024, Additional history exists Diabetes: Annual GFR (Glomerular Filtration Rate) 10/03/2025 10/03/2024, 07/03/2024, 03/22/2024 Hypertension/CHF/CAD Annual BMP Blood Test 10/03/2025 10/03/2024, 07/03/2024, 03/22/2024 Cholesterol Screening (Lipid Panel) 07/03/2029 07/03/2024 HIB Vaccines Aged Out No longer eligi ble based on patient's age to complete this topic HPV Vaccines Aged Out No longer eligi ble based on patient's age to complete this topic Hepatitis A Vaccines Aged Out No long er eligible based on patient's age to complete this topic Hepatitis B Vaccines Aged Out No long er eligible based on patient's age to complete this topic IPV Vaccines Aged Out No longer eligi ble based on patient's age to complete this topic MMR Vaccines Aged Out No longer eligi ble based on patient's age to complete this topic Meningococcal ACWY Vaccine Aged Out N o longer eligible based on patient's age to complete this topic Meningococcal B Vaccine Aged Out No l onger eligible based on patient's age to complete this topic RSV Immunization Patients Under 20 months Aged Out No longer eligible based on patient's age to complete this topic Varicella Vaccines Aged Out No longer eligible based on patient's age to complete this topic Procedures Procedure Name Priority Date/Time Associated Diagnosis Comments HEMOGLOBIN A1C Routine 10/03/2024 6:56 AM EDT Unspecified combined systolic (congestive) and diastolic (congestive) heart failure (CMS/HCC V24, CMS/HCC V28) Type 2 diabetes mellitus without complications (CMS/HCC V24, [facility] V28) COMPREHENSIVE METABOLIC PANEL Routine 10/03/2024 6:56 AM EDT Unspecified combined systolic (congestive) and diastolic (congestive) heart failure ([facility] V24, [facility] V28) Type 2 diabetes mellitus without complications ([facility] V24, [facility] V28) THYROID STIMULATING HORMONE Routine 08/19/2024 6:49 AM EDT Encounter for other specified special examinations Hypothyroidism, unspecified THYROID STIMULATING HORMONE Routine 08/16/2024 6:30 AM EDT Hypothyroidism, unspecified LIPID PANEL WITH REFLEX TO DIRECT LDL Routine 07/03/2024 7:10 AM EDT Hypokalemia Magnesium deficiency Unspecified combined systolic (congestive) and diastolic (congestive) heart failure ([facility] V24, [facility] V28) Type 2 diabetes mellitus without complications ([facility] V24, [facility] V28) from Last 3 Months or Most Recently Relevant to Health Maintenance Results * (ABNORMAL) Hemoglobin A1c (10/03/2024 6:56 AM EDT) Hemoglobin A1C 7.0(H) <6.5 % LAB CHEMISTRY METHOD 10/03/2024 10:57 AM EDT [facility] Mean Bld Glu Estim. 154 mg/dL LAB CHEMISTRY METHOD 10/03/2024 10:57 AM EDT [facility] Blood Venous blood specimen / Unknown 10/03/2024 6:56 AM EDT 10/03/2024 7:34 AM EDT us Renato Arnold MD LAB BLOOD ORDERABLES Final Resul t [facility] [address] [place] [address], * (ABNORMAL) Comprehensive metabolic panel (10/03/2024 6:56 AM EDT) Sodium 141 133 - 145 mmol/L LAB CHEMISTRY METHOD 10/03/2024 8:22 AM [facility] Potassium 4.7 3.5 - 5.5 mmol/L LAB CHEMISTRY METHOD 10/03/2024 8:22 AM [facility] Comment:Hemolysis present Chloride 105 96 - 110 mmol/L LAB CHEMISTRY METHOD 10/03/2024 8:22 AM [facility] CO2 32 21 - 32 mmol/L LAB CHEMISTRY METHOD 10/03/2024 8:22 AM [facility] Anion Gap 4 3 - 11 LAB CHEMISTRY METHOD 10/03/2024 8:22 AM [facility] Glucose 98 70 - 100 mg/dL LAB CHEMISTRY METHOD 10/03/2024 8:22 AM [facility] BUN 18 5 - 25 mg/dL LAB CHEMISTRY METHOD 10/03/2024 8:22 AM [facility] Creatinine 0.90 0.50 - 1.10 mg/dL LAB CHEMISTRY METHOD 10/03/2024 8:22 AM [facility] eGFR 66 >=60 mL/min/1. 73m2 LAB CHEMISTRY METHOD 10/03/2024 8:22 AM [facility] Comment:Calculation based on the Chronic Kidney Disease Epidemiology Collaboration (CKD-EPI) equation refit without adjustment for race. BUN/Creatinine Ratio 20.0 LAB CHEMISTRY METHOD 10/03/2024 8:22 AM [facility] Calcium 9.3 8.5 - 10.5 mg/dL LAB CHEMISTRY METHOD 10/03/2024 8:22 AM [facility] AST (SGOT) 20 10 - 42 unit/L LAB CHEMISTRY METHOD 10/03/2024 8:22 AM [facility] Comment:Hemolysis present ALT (SGPT) 24 10 - 60 unit/L LAB CHEMISTRY METHOD 10/03/2024 8:22 AM EDT [facility] Alkaline Phosphatase 103 42 - 121 unit/L LAB CHEMISTRY METHOD 10/03/2024 8:22 AM EDT [facility] Total Protein 5.7(L) 6.0 - 8.0 g/dL LAB CHEMISTRY METHOD 10/03/2024 8:22 AM EDT [facility] Albumin 3.0(L) 3.2 - 5.0 g/dL LAB CHEMISTRY METHOD 10/03/2024 8:22 AM EDT [facility] Total Bilirubin 0.3 0.0 - 1.4 mg/dL LAB CHEMISTRY METHOD 10/03/2024 8:22 AM EDT [facility] Blood Venous blood specimen / Unknown 10/03/2024 6:56 AM EDT 10/03/2024 7:34 AM EDT us Renato Arnold MD LAB BLOOD ORDERABLES Final Resul t Performing Organization Address City/[facility]/ZIP Co de Phone Number [facility] [address] [place] [address], [place] [phone] * Thyroid stimulating hormone (08/19/2024 6:49 AM EDT) Only the most recent of2 resultswithin the time period is included. TSH 1.50 0.40 - 4.00 mcIU/mL LAB CHEMISTRY METHOD 08/19/2024 11:35 AM EDT [facility] Blood Venous blood specimen / Unknown 08/19/2024 6:49 AM EDT 08/19/2024 8:00 AM EDT us Renato Arnold MD LAB BLOOD ORDERABLES Final Resul t Performing Organization Address [facility]/ZIP Co de Phone Number [facility] [address] [place] [address], [place] [phone] * (ABNORMAL) Lipid panel with reflex to direct LDL (07/03/2024 7:10 AM EDT) Cholesterol 254(H) 0 - 200 mg/dL LAB CHEMISTRY METHOD 07/03/2024 9:03 AM EDT [facility] Triglycerides 219(H) 0 - 150 mg/dL LAB CHEMISTRY METHOD 07/03/2024 9:03 AM EDT [facility] HDL 50 >=40 mg/dL LAB CHEMISTRY METHOD 07/03/2024 9:03 AM EDT [facility] LDL Calculated 160(H) 0 - 100 mg/dL LAB CHEMISTRY METHOD 07/03/2024 9:03 AM EDT [facility] VLDL Cholesterol Wade 43.8 mg/dL LAB CHEMISTRY METHOD 07/03/2024 9:03 AM [facility] Non HDL Chol. (LDL+VLDL) 204(H) <145 mg/dL LAB CHEMISTRY METHOD 07/03/2024 9:03 AM [facility] Chol/HDL Ratio 5.1(H) 0.0 - 4.4 LAB CHEMISTRY METHOD 07/03/2024 9:03 AM [facility] Blood Venous blood specimen / Unknown 07/03/2024 7:10 AM EDT 07/03/2024 7:52 AM EDT us Renato Arnold MD LAB BLOOD ORDERABLES Final Resul t [facility] [address] [place] [address], from Last 3 Months or Most Recently Relevant to Health Maintenance Insurance MEDICARE MEDICARE MEDICAID - [place] Care Teams File Clerk Data Entry Relationship Specialty Start Date End Date Renato Arnold MD [address] [place] [address] Dr [address] DEXTER Forbes PCP - General Internal Medicine 06/28/17
--- OUTSIDE RECORDS SUMMARY | 2024-11-15 13:08 | XMS_ITS | Encounter Summary ---
Author Organization [facility] Address [address] [place] [address] Care Team Providers Care Bulb Packer Name Role Phone Renato Arnold MD Primary Care Provider [phone] Encounter Details Date Type Department Care Team (Late st Contact Info) Description 06/03/2024 Lab Requisition [facility] - Main Lab [address] [place] [address] Renato Arnold MD [address] [place] [address] [address] [place], [place] Hypothyroidism, unspecified Social History Tobacco Use Types [...] Associated Diagnosis Comments THYROID STIMULATING HORMONE Routine 06/03/2024 6:56 AM EDT Hypothyroidism, unspecified documented in this encounter Results * Thyroid stimulating hormone (06/03/2024 6:56 AM EDT) TSH 2.42 0.40 - 4.00 mcIU/mL LAB CHEMISTRY METHOD 06/03/2024 9:16 AM EDT [facility] Blood Venous blood specimen / Unknown 06/03/2024 6:56 AM EDT 06/03/2024 7:23 AM EDT us Renato Arnold MD LAB BLOOD ORDERABLES Final Resul t [facility] [address] [place] [address], documented in this encounter Visit Diagnoses Diagnosis Hypothyroidism, unspecified documented in this encounter Care Teams Bulb Packer Relationship Specialty Start Date End Date Renato Arnold MD [address] [place] [address] Dr [address] [place], [place] PCP - General Internal Medicine 06/28/17 documented as of this encounter
--- OUTSIDE RECORDS SUMMARY | 2024-11-15 13:08 | XMS_ITS | Encounter Summary ---
Author Organization [facility] Address [address] [place] [address] Care Team Providers Care Dispatcher Chief Oil Name Role Phone Renato Arnold MD Primary Care Provider [phone] Encounter Details Date Type Department Care Team (Late st Contact Info) Description 03/22/2024 Lab Requisition [facility] - Main Lab [address] [place] [address] Renato Arnold MD [address] [place] [address] [address] [place], [place] Type 2 diabetes mellitus with unspecified complications (CMS/HCC V24, CMS/HCC V28); Chronic systolic (congestive) heart failure (CMS/HCC V24, CMS/HCC V28) Social History Tobacco [...] Procedure Name Priority Date/Time Associated Diagnosis Comments COMPREHENSIVE METABOLIC PANEL Routine 03/22/2024 6:54 AM EST Type 2 diabetes mellitus with unspecified complications (CMS/HCC) Chronic systolic (congestive) heart failure (CMS/HCC) documented in this encounter Results * (ABNORMAL) Comprehensive metabolic panel (03/22/2024 6:54 AM EST) Sodium 137 133 - 145 mmol/L LAB CHEMISTRY METHOD 03/22/2024 9:59 AM EST [facility] Potassium 4.1 3.5 - 5.5 mmol/L LAB CHEMISTRY METHOD 03/22/2024 9:59 AM EST [facility] Chloride 100 96 - 110 mmol/L LAB CHEMISTRY METHOD 03/22/2024 9:59 AM [facility] CO2 31 21 - 32 mmol/L LAB CHEMISTRY METHOD 03/22/2024 9:59 AM [facility] Anion Gap 6 3 - 11 LAB CHEMISTRY METHOD 03/22/2024 9:59 AM [facility] Glucose 92 70 - 100 mg/dL LAB CHEMISTRY METHOD 03/22/2024 9:59 AM [facility] BUN 15 5 - 25 mg/dL LAB CHEMISTRY METHOD 03/22/2024 9:59 AM [facility] Creatinine 0.79 0.50 - 1.10 mg/dL LAB CHEMISTRY METHOD 03/22/2024 9:59 AM [facility] eGFR 78 >=60 mL/min/1. 73m2 LAB CHEMISTRY METHOD 03/22/2024 9:59 AM [facility] Comment:Calculation based on the Chronic Kidney Disease Epidemiology Collaboration (CKD-EPI) equation refit without adjustment for race. BUN/Creatinine Ratio 19.0 LAB CHEMISTRY METHOD 03/22/2024 9:59 AM [facility] Calcium 8.8 8.5 - 10.5 mg/dL LAB CHEMISTRY METHOD 03/22/2024 9:59 AM [facility] AST (SGOT) 15 10 - 42 unit/L LAB CHEMISTRY METHOD 03/22/2024 9:59 AM [facility] ALT (SGPT) 19 10 - 60 unit/L LAB CHEMISTRY METHOD 03/22/2024 9:59 AM [facility] Alkaline Phosphatase 207(H) 42 - 121 unit/L LAB CHEMISTRY METHOD 03/22/2024 9:59 AM [facility] Total Protein 5.7(L) 6.0 - 8.0 g/dL LAB CHEMISTRY METHOD 03/22/2024 9:59 AM [facility] Albumin 2.6(L) 3.2 - 5.0 g/dL LAB CHEMISTRY METHOD 03/22/2024 9:59 AM EST [facility] Total Bilirubin 0.4 0.0 - 1.4 mg/dL LAB CHEMISTRY METHOD 03/22/2024 9:59 AM EST [facility] Blood Venous blood specimen / Unknown 03/22/2024 6:54 AM EST 03/22/2024 7:39 AM EST us Renato Arnold MD LAB BLOOD ORDERABLES Final Resul t [facility] [address] [place] [address], documented in this encounter Visit Diagnoses Diagnosis Type 2 diabetes mellitus with unspecified complications (CMS/HCC V24, CMS/HCC V28) Chronic systolic (congestive) heart failure (CMS/HCC V24, CMS/HCC V28) documented in this encounter Additional Health Concerns Infection Onset Date Last Indicated Resolved Time Respiratory Rule-Out 05/28/2024 05/28/2024 025 10:30 AM EDT documented as of this encounter Care Teams Dispatcher Chief Oil Relationship Specialty Start Date End Date Renato Arnold MD [address] [place] [address] Dr [address] [place] [address] [place] PCP - General Internal Medicine 06/28/17 documented as of this encounter
--- OUTSIDE RECORDS SUMMARY | 2024-11-15 13:08 | XMS_ITS | Encounter Summary ---
Author Organization [facility] Address [address] [place] [address] Care Team Providers Care Airline Pilot/First Officer Name Role Phone Renato Arnold MD Primary Care Provider Encounter Details Date Type Department Care Team (Late st Contact Info) Description 08/16/2024 Lab Requisition [facility] - Main Lab [address] [place] [address] Renato Arnold MD [address] [place] [address] [address] [place], [place] Hypothyroidism, unspecified Social History Tobacco Use [...] Associated Diagnosis Comments THYROID STIMULATING HORMONE Routine 08/16/2024 6:30 AM EDT Hypothyroidism, unspecified documented in this encounter Results * Thyroid stimulating hormone (08/16/2024 6:30 AM EDT) TSH 2.01 0.40 - 4.00 mcIU/mL LAB CHEMISTRY METHOD 08/16/2024 10:15 AM EDT [facility] Blood Venous blood specimen / Unknown 08/16/2024 6:30 AM EDT 08/16/2024 7:51 AM EDT us Renato Arnold MD LAB BLOOD ORDERABLES Final Resul t [facility] [address] [place] [address], documented in this encounter Visit Diagnoses Diagnosis Hypothyroidism, unspecified documented in this encounter Care Teams Airline Pilot/First Officer Relationship Specialty Start Date End Date Renato Arnold MD [address] [place] [address] Dr [address] [place], [place] PCP - General Internal Medicine 06/28/17 documented as of this encounter
--- OUTSIDE RECORDS SUMMARY | 2024-11-15 13:08 | XMS_ITS | Encounter Summary ---
Author Organization [facility] Address [address] [place] [address] Care Team Providers Care Valve Setter Name Role Phone Renato Arnold MD Primary Care Provider [phone] Encounter Details Date Type Department Care Team (Late st Contact Info) Description 01/18/2024 Lab Requisition [facility] - Main Lab [address] [facility] [place] [address] Renato Arnold MD [address] [place] [address] Dr [address] [place], [place] Major depressive disorder, single episode, unspecified; Type 2 diabetes mellitus without complications (CMS/HCC [...] Procedure Name Priority Date/Time Associated Diagnosis Comments CBC WITH AUTO DIFFERENTIAL Routine 01/18/2024 5:53 AM EST Major depressive disorder, single episode, unspecified Type 2 diabetes mellitus without complications (CMS/HCC) LAVENDER - EDTA Routine 01/18/2024 5:53 AM EST Major depressive disorder, single episode, unspecified Type 2 diabetes mellitus without complications (CMS/HCC) CBC AND DIFFERENTIAL Routine 01/18/2024 5:53 AM EST Major depressive disorder, single episode, unspecified Type 2 diabetes mellitus without complications (CMS/HCC) MAGNESIUM Routine 01/18/2024 5:53 AM EST Major depressive disorder, single episode, unspecified Type 2 diabetes mellitus without complications (CMS/HCC) HEMOGLOBIN A1C Routine 01/18/2024 5:53 AM EST Major depressive disorder, single episode, unspecified Type 2 diabetes mellitus without complications (CMS/HCC) documented in this encounter Results * Lavender tube (01/18/2024 5:53 AM EST) Extra Tube Hold for add-ons. 01/18/2024 9:01 AM EST [facility] Comment:Auto resulted. Blood Venous blood specimen / Unknown 01/18/2024 5:53 AM EST 01/18/2024 7:32 AM EST us Renato Arnold MD LAB BLOOD ORDERABLES Final Resul t [facility] [address] [place] [address], * (ABNORMAL) CBC auto differential (01/18/2024 5:53 AM EST) WBC 10.6 4.8 - 10.8 K/mcL LAB HEMETOLOGY METHOD 01/18/2024 7:48 AM [facility] RBC 4.90(H) 3.80 - 4.80 M/mcL LAB HEMETOLOGY METHOD 01/18/2024 7:48 AM [facility] Hemoglobin 14.3 11.5 - 16.0 g/dL LAB HEMETOLOGY METHOD 01/18/2024 7:48 AM [facility] Hematocrit 44.4 35.0 - 47.0 % LAB HEMETOLOGY METHOD 01/18/2024 7:48 AM [facility] MCV 90.6 79.0 - 98.0 FL LAB HEMETOLOGY METHOD 01/18/2024 7:48 AM [facility] MCH 29.2 27.0 - 32.0 pcg LAB HEMETOLOGY METHOD 01/18/2024 7:48 AM [facility] MCHC 32.2 32.0 - 37.0 g/dL LAB HEMETOLOGY METHOD 01/18/2024 7:48 AM [facility] RDW 13.6 11.0 - 15.0 % LAB HEMETOLOGY METHOD 01/18/2024 7:48 AM [facility] Platelets 376 130 - 400 K/mcL LAB HEMETOLOGY METHOD 01/18/2024 7:48 AM [facility] MPV 10.4 7.0 - 11.0 FL LAB HEMETOLOGY METHOD 01/18/2024 7:48 AM [facility] NRBC 0.0 <1.0 % LAB HEMETOLOGY METHOD 01/18/2024 7:48 AM [facility] NRBC Absolute 0.00 <0.10 K/mcL LAB HEMETOLOGY METHOD 01/18/2024 7:48 AM [facility] Neutrophils Relative 48.8 % LAB HEMETOLOGY METHOD 01/18/2024 7:48 AM [facility] Lymphocytes Relative 36.6 % LAB HEMETOLOGY METHOD 01/18/2024 7:48 AM [facility] Monocytes Relative 11.7 % LAB HEMETOLOGY METHOD 01/18/2024 7:48 AM [facility] Eosinophils Relative 2.1 % LAB HEMETOLOGY METHOD 01/18/2024 7:48 AM [facility] Basophils Relative 0.6 % LAB HEMETOLOGY METHOD 01/18/2024 7:48 AM [facility] Immature Granulocytes Relative 0.2 % LAB HEMETOLOGY METHOD 01/18/2024 7:48 AM [facility] Neutrophils Absolute 5.19 1.50 - 7.00 K/mcL LAB HEMETOLOGY METHOD 01/18/2024 7:48 AM [facility] Lymphocytes Absolute 3.88 1.00 - 5.00 K/[facility] LAB HEMETOLOGY METHOD 01/18/2024 7:48 AM EST [facility] Monocytes Absolute 1.24(H) 0.20 - 1.00 K/[facility] LAB HEMETOLOGY METHOD 01/18/2024 7:48 AM EST [facility] Eosinophils Absolute 0.22 0.00 - 0.50 K/[facility] LAB HEMETOLOGY METHOD 01/18/2024 7:48 AM EST [facility] Basophils Absolute 0.06 0.00 - 0.20 K/[facility] LAB HEMETOLOGY METHOD 01/18/2024 7:48 AM EST [facility] Immature Granulocytes Absolute 0.02 0.00 - 0.03 K/[facility] LAB HEMETOLOGY METHOD 01/18/2024 7:48 AM EST [facility] Blood Venous blood specimen / Unknown 01/18/2024 5:53 AM EST 01/18/2024 7:30 AM EST us Renato Arnold MD LAB BLOOD ORDERABLES Final Resul t [facility] [address] [place] [address], [place] [phone] * Hemoglobin A1c (01/18/2024 5:53 AM EST) Hemoglobin A1C 6.2 <6.5 % LAB CHEMISTRY METHOD 01/18/2024 12:40 PM EST [facility] Mean Bld Glu Estim. 131 mg/dL LAB CHEMISTRY METHOD 01/18/2024 12:40 PM EST [facility] Blood Venous blood specimen / Unknown 01/18/2024 5:53 AM EST 01/18/2024 7:30 AM EST us Renato Arnold MD LAB BLOOD ORDERABLES Final Resul t [facility] [address] [place] [address], [place] [phone] * Magnesium (01/18/2024 5:53 AM EST) Magnesium 2.2 1.9 - 2.6 mg/dL LAB CHEMISTRY METHOD 01/18/2024 7:59 AM EST [facility] Blood Venous blood specimen / Unknown 01/18/2024 5:53 AM EST 01/18/2024 7:30 AM EST us Renato Arnold MD LAB BLOOD ORDERABLES Final Resul t [facility] [address] [place] [address], [place] [phone] documented in this encounter Visit Diagnoses Diagnosis Major depressive disorder, single episode, unspecified Type 2 diabetes mellitus without complications (CMS/HCC V24, CMS/HCC V28) documented in this encounter Additional Health Concerns Infection Onset Date Last Indicated Resolved Time Respiratory Rule-Out 05/28/2024 05/28/2024 025 10:30 AM EDT documented as of this encounter Care Teams Valve Setter Relationship Specialty Start Date End Date Renato Arnold MD [address] [place] [address] Dr [address] DEXTER Forbes PCP - General Internal Medicine 06/28/17 documented as of this encounter
--- OUTSIDE RECORDS SUMMARY | 2024-11-15 13:08 | XMS_ITS | Encounter Summary ---
Author Organization [facility] Address [address] [place] [address] Care Team Providers Care Customer Relationship Specialist Name Role Phone Renato Arnold MD Primary Care Provider [phone] Encounter Details Date Type Department Care Team (Late st Contact Info) Description 04/17/2024 Lab Requisition [facility] - Main Lab [address] [facility] [place] [address] Renato Arnold MD [address] [place] [address] [address] [place], [place] Type 2 diabetes mellitus without complications (CMS/HCC [...] Date/Time Associated Diagnosis Comments HEMOGLOBIN A1C Routine 04/17/2024 6:51 AM EST Type 2 diabetes mellitus without complications (CMS/[facility]) documented in this encounter Results * (ABNORMAL) Hemoglobin A1c (04/17/2024 6:51 AM EST) Hemoglobin A1C 7.2(H) <6.5 % LAB CHEMISTRY METHOD 04/17/2024 1:55 PM EST [facility] Mean Bld Glu Estim. 160 mg/dL LAB CHEMISTRY METHOD 04/17/2024 1:55 PM EST [facility] Blood Venous blood specimen / Unknown 04/17/2024 6:51 AM EST 04/17/2024 7:22 AM EST us Renato Arnold MD LAB BLOOD ORDERABLES Final Resul t [facility] [address] [place] [address], documented in this encounter Visit Diagnoses Diagnosis Type 2 diabetes mellitus without complications (CMS/HCC V24, CMS/HCC V28) documented in this encounter Additional Health Concerns Infection Onset Date Last Indicated Resolved Time Respiratory Rule-Out 05/28/2024 05/28/2024 025 10:30 AM EDT documented as of this encounter Care Teams Customer Relationship Specialist Relationship Specialty Start Date End Date Renato Arnold MD [address] [place], [place] PCP - General Internal Medicine 06/28/17 documented as of this encounter
--- OUTSIDE RECORDS SUMMARY | 2024-11-15 13:08 | XMS_ITS | Encounter Summary ---
Author Organization [facility] Address [address] [place] [address] Care Team Providers Care Vehicle Monitor Technician Name Role Phone Renato Arnold MD Primary Care Provider [phone] Encounter Details Date Type Department Care Team (Late st Contact Info) Description 03/12/2024 Lab Requisition [facility] - Main Lab [address] [place] [address] Renato Arnold MD [address] [place] [address] [address] [place], [place] Major depressive disorder, single episode, unspecified Social History Tobacco Use Types Packs/Day [...] Associated Diagnosis Comments THYROID STIMULATING HORMONE Routine 03/12/2024 6:53 AM EST Major depressive disorder, single episode, unspecified documented in this encounter Results * Thyroid stimulating hormone (03/12/2024 6:53 AM EST) TSH 3.85 0.40 - 4.00 mcIU/mL LAB CHEMISTRY METHOD 03/12/2024 10:05 AM EST [facility] Blood Venous blood specimen / Unknown 03/12/2024 6:53 AM EST 03/12/2024 7:28 AM EST us Renato Arnold MD LAB BLOOD ORDERABLES Final Resul t [facility] [address] [place] [address], documented in this encounter Visit Diagnoses Diagnosis Major depressive disorder, single episode, unspecified documented in this encounter Additional Health Concerns Infection Onset Date Last Indicated Resolved Time Respiratory Rule-Out 05/28/2024 05/28/2024 025 10:30 AM EDT documented as of this encounter Care Teams Vehicle Monitor Technician Relationship Specialty Start Date End Date Renato Arnold MD [address] [place] [address] Dr [address] [place], [place] PCP - General Internal Medicine 06/28/17 documented as of this encounter
== END 2024-11-15 13:05 | disposition home or self-care (01) ==
LOC: HO.CT 13:04
PROVIDERS: PCP Hospitalist; Visit Provider Hospitalist
DX: R91.1 Solitary pulmonary nodule (principal)
CPT/HCPCS: 71250

== ENCOUNTER → 2024-11-15 13:37 | Outpatient (BNV) | payer MEDICARE, MEDICAID, SELFPAY | PROVIDERS: PCP Hospitalist; Visit Provider Radiology Diagnostic Radiology | DX: R91.8 Other nonspecific abnormal finding of lung field (principal) | CPT/HCPCS: 71250 ==